=== PATIENT | female | born 1935 ===

== ENCOUNTER 2017-05-01 10:27 | Observation (INO) | payer MEDICARE, OTHER ==
[2017-05-01 10:33] VITALS: BMI 27.4
[2017-05-01] MEDS ORDERED: Sodium Chloride 0.9% 1,000 ML IV STA (10:51)
--- NOTE | 2017-05-01 10:55 | ED PDOC ---
HPI: Chest Pain Time Seen by Provider: 05/01/17 10:34 Chief Complaint (Nursing): Chest Pain Chief Complaint (Provider): Chest Pain History Per: Patient History/Exam Limitations: no limitations Quality: "Pain" Associated Symptoms: Nausea Additional Complaint(s): Vilma Anaya, an 82 year old female, presens to the ED with chest pain/ epigastric pain x1 day. The patient states that the pain radiates down her right arm and is associated with nausea, shortness of breath and vomiting. She reports that she was diagnosed with a cold last week and was started on a course of cipro which she has completed but still does not feel better. Patient also notes a cough productive of yellow sputum. Denies fever, diarrhea. Past Medical History Reviewed: Historical Data, Nursing Documentation, Vital Signs Vital Signs: Last Vital Signs Temp 97.5 F L 05/02/17 15:48 Pulse 79 05/02/17 15:48 Resp 20 05/02/17 15:48 BP 165/68 H 05/02/17 15:48 Pulse Ox 98 05/02/17 15:48 - Medical History PMH: Arthritis, Asthma, Atrial Fibrillation, Bronchitis, Cardia Arrhythmia, Fractures (right hip/right shoulder), Gastritis, GERD, HTN (Syncope, Pacemaker, Thyroid dz), Hypercholesterolemia, Hypothyroidism Denies: Alzheimer's Disease, CHF, Dementia, Pneumonia, Pulmonary Embolism, Chronic Kidney Disease, Sleep Apnea, TIA - Surgical History Surgical History: Appendectomy, Cholecystectomy, Pacemaker, Tonsillectomy - Family History Family History: States: Unknown Family Hx - Home Medications Home Medications: Ambulatory Orders Medication Instructions Recorded Fluticasone/Salmeterol 250/50 1 puff INH Q12H 11/08/15 [Advair Diskus 250/50] amLODIPine [Norvasc] 10 mg PO DAILY 02/17/16 Esomeprazole Magnesium [Nexium] 40 mg PO DAILY 07/25/16 Levothyroxine Sodium 137 mcg PO DAILY 07/25/16 Metoclopramide [Reglan] 10 mg PO ACTID 05/01/17 Benzonatate [Tessalon Perles] 100 mg PO Q8 PRN #20 sgl 05/02/17 - Allergies Allergies/Adverse Reactions: Allergies Allergy/AdvReac Type Severity Reaction Status Date / Time albuterol Allergy RASH Verified 10/06/15 12:18 aspirin Allergy RASH Verified 10/06/15 12:18 iodine Allergy RASH Verified 10/06/15 12:18 Penicillins Allergy RASH Verified 10/06/15 12:18 ammonia AdvReac VOMITING Verified 11/02/15 13:38 Review of Systems ROS Statement: Except As Marked, All Systems Reviewed And Found Negative Constitutional: Negative for: Fever Cardiovascular: Positive for: Chest Pain ((point set epigastrium)) Respiratory: Positive for: Cough (productive of yellow sputum), Shortness of Breath Gastrointestinal: Positive for: Nausea, Vomiting. Negative for: Diarrhea Physical Exam - Reviewed Nursing Documentation Reviewed: Yes Vital Signs Reviewed: Yes - Physical Exam Appears: Positive for: Non-toxic (Pt speaking in full sentences.), No Acute Distress Skin: Positive for: Normal Color, Warm, Dry. Negative for: Rash Eye Exam: Positive for: Normal appearance, EOMI, PERRL ENT: Positive for: Normal ENT Inspection. Negative for: Tonsillar Exudate, Tonsillar Swelling Neck: Positive for: Normal, Painless ROM, Supple Cardiovascular/Chest: Positive for: Regular Rate, Rhythm, Chest Non Tender. Negative for: Tachycardia Respiratory: Positive for: Normal Breath Sounds. Negative for: Rales, Rhonchi, Wheezing, Respiratory Distress Gastrointestinal/Abdominal: Positive for: Tenderness (Tenderness to epigastrium and right upper quadrant.). Negative for: Bowel Sounds, Soft, Mass, Guarding, Rebound Back: Positive for: Normal Inspection. Negative for: L CVA Tenderness, R CVA Tenderness Extremity: Positive for: Normal ROM. Negative for: Tenderness, Deformity, Swelling Neurologic/Psych: Positive for: Alert, Oriented, Gait - Laboratory Results Result Diagrams: 05/01/17 11:00 05/02/17 06:20 - ECG O2 Sat by Pulse Oximetry: 98 (RA) Pulse Ox Interpretation: Normal Medical Decision Making Medical Decision Makin Initial impression: 82 year old female presenting with Chest/Epigastric pain and cough Initial Plan: * EKG * CMP * Lipase * Troponin * Udip * CBC * D-Dimer * PTT * Prothrombin time * CXR * NS 1000mls IV 125mls/hr * Zofran 4mg IV * Blood Culture * Urinalysis * Reevaluation Scribe Attestation Documented by Diana Monroy acting as a scribe for Consuelo Pena MD. Provider Attestation All medical record entries made by the Scribe were at my direction and personally dictated by me. I have reviewed the chart and agree that the record accurately reflects my personal performance of the history, physical exam, medical decision making, and the department course for this patient. I have also personally directed, reviewed, and agree with the discharge instructions and disposition. Disposition - Clinical Impression Clinical Impression: Chest pain, Epigastric pain - Disposition Disposition Time: 15:10 Condition: STABLE - Pt Status Changed To: Hospital Disposition Of: Inpatient - Admit Certification Admit to Inpatient:: After my assessment, the patient will require hospitalization for at least two midnights. This is because of the severity of symptoms shown, intensity of services needed, and/or the medical risk in this patient being treated as an outpatient. - POA Present On Arrival: None
--- NOTE | 2017-05-01 11:17 | RAD ---
HISTORY: Chest pain COMPARISON: 07/25/2016. FINDINGS: LUNGS: There is mild pulmonary venous congestion. No focal consolidation. PLEURA: No significant pleural effusion identified, no pneumothorax apparent. CARDIOVASCULAR: The heart is normal in size. Atherosclerotic aortic arch calcifications are present. There is stable position of a left-sided dual lead transvenous permanent pacing device. OSSEOUS STRUCTURES: No significant abnormalities. VISUALIZED UPPER ABDOMEN: Normal. OTHER FINDINGS: Surgical clips in the right upper quadrant are related to prior cholecystectomy. IMPRESSION: No active pulmonary disease. Mild pulmonary venous congestion.
[2017-05-01 11:21] LABS: BASO # 0.1 K/uL (0.0-0.2); BASO % 0.6 % (0.0-2.0); EOS # 0.2 K/uL (0.0-0.7); EOS % 1.8 % (0.0-4.0); LYMPH # 2.4 K/uL (1.0-4.3); LYMPH % 24.6 % (20.0-40.0); MEAN CORPUSCULAR HEMOGLOBIN 30.3 pg (27.0-31.0); MEAN CORPUSCULAR HGB CONC 33.7 g/dL (33.0-37.0); MONO # 0.7 K/uL (0.0-0.8); MONO % 7.1 % (0.0-10.0); NEUT # 6.4 K/uL (1.8-7.0); NEUT % 65.9 % (50.0-75.0); NRBC % 0.1 % (0.0-0.0); RED CELL DISTRIBUTION WIDTH 13.6 % (11.5-14.5); WHITE BLOOD COUNT 9.8 K/uL (4.8-10.8)
[2017-05-01 11:38] LABS: ALB/GLOB RATIO 1.2 (1.0-2.1); ALKALINE PHOSPHATASE 79 U/L (38-126); ALT/SGPT 29 U/L (9-52); AST/SGOT 25 U/L (14-36); BILIRUBIN,TOTAL 0.8 mg/dl (0.2-1.3); BLOOD UREA NITROGEN 28 mg/dl (7-17); CARBON DIOXIDE 25 mmol/L (22-30); CHLORIDE 105 mmol/L (98-107); GFR AFRICAN-AMERICAN > 60; GLUCOSE,RANDOM 122 mg/dL (65-105); LIPASE 181 U/L (23-300); POTASSIUM 3.6 MMOL/L (3.6-5.0); SODIUM 143 mmol/l (132-148); TOTAL PROTEIN 7.2 G/DL (6.3-8.2)
[2017-05-01 11:38] LABS: VENOUS BLOOD GAS BASE EXCESS 3.3 mmol/L (0.0-2.0); VENOUS BLOOD GAS PCO2 41 mmHg (40-60); VENOUS BLOOD PH 7.44 (7.32-7.43)
[2017-05-01 11:46] LABS: PARTIAL THROMBOPLASTIN TIME 24.1 Seconds (25.6-37.1)
[2017-05-01 11:48] LABS: RBC URINE 5 /hpf (0-3); URINE BACTERIA RARE (<OCC); URINE BILIRUBIN NEGATIVE (NEGATIVE); URINE BLOOD SMALL (NEGATIVE); URINE COLOR AMBER (YELLOW); URINE GLUCOSE (UA) NEG (Normal); URINE KETONE NEGATIVE (NEGATIVE); URINE LEUKOCYTE ESTERASE SMALL Leu/uL (Negative); URINE PROTEIN 30 mg/dL (NEGATIVE); URINE UROBILINOGEN 0.2-1.0 mg/dL (0.2-1.0); WBC URINE 5 /hpf (0-5)
[2017-05-01] MEDS ORDERED: Iodixanol 320 MG/ML 100 ML BOTTLE IV ONE (12:42)
--- NOTE | 2017-05-01 14:15 | NM ---
COMPARISON: Not available TECHNIQUE: 47.20 mCi technetium 99-m DTPA aerosol. 6.25 mCI technetium 99-m MAA administered intravenously. FINDINGS: VENTILATION COMPONENT: Limited examination due to central tracheobronchial deposition bilaterally. No large ventilation defects. PERFUSION COMPONENT: Multiple small bilateral matched perfusion defects. No mismatched perfusion defects are identified. IMPRESSION: Low probability for pulmonary embolism.
--- NOTE | 2017-05-01 16:08 | US ---
HISTORY: Epigastric/RUQ pain COMPARISON: None. TECHNIQUE: Grayscale imaging was performed. FINDINGS: LIVER: Measures 13.3 cm. Normal echogenicity of the liver parenchyma. No mass. No intrahepatic bile duct dilatation. GALLBLADDER: Surgically absent. COMMON BILE DUCT: Measures 5.0 mm. No stones. No dilatation. PANCREAS: Unremarkable as visualized. No ductal dilatation. RIGHT KIDNEY: Measures 10.6cm. Normal echogenicity. No calculus, mass, or hydronephrosis. LEFT KIDNEY: Measures 10.9cm. Normal echogenicity. No calculus, mass, or hydronephrosis. There is a 6.1 x 4.7 x 5.6 cm simple parapelvic cyst. SPLEEN: Normal in size and contour. No mass. AORTA: No aneurysmal dilatation. IVC: Unremarkable. OTHER FINDINGS: None. IMPRESSION: 1. Status post cholecystectomy, no biliary dilatation. 2. 6.1 cm left parapelvic simple cyst.
--- NOTE | 2017-05-01 16:29 | RAD ---
HISTORY: Epigastric COMPARISON: No prior. FINDINGS: BOWEL: Mild retained feces. No bowel obstruction. No hepatic or splenic enlargement. No masses or abnormal intra-abdominal calcifications. Surgical clips in right upper quadrant likely status post cholecystectomy. BONES: Lumbar dextroscoliosis. OTHER FINDINGS: None. IMPRESSION: Unremarkable bowel gas pattern.
[2017-05-01] MEDS ORDERED: Alum-Mag Hydrox-Simethicone Susp (30 mL) PO PRN (20:41)
[2017-05-01] MEDS: Fluticasone-Salmeterol 250-50mcg Diskus INH SCH (21:32)
--- NOTE | 2017-05-02 00:06 | CP.PCM.HP ---
History of Present Illness - History of Present Illness History of Present Illness: An 82 yr old female with hx of HTN, GERD, Hypothyroidism on meds came with hx of feeling sick with nausea and vomiting in early am today, went to bed , when she woke up, she had a loose big stool - few times with almost passing out feeling and right chest discomfort and felt like radiating to right side. she does see cardiology as out patient. denies fever, sick contacts, recent travel. denies SOB . CURRENTLY FEELs better so far work up was negative. Present on Admission - Present on Admission Any Indicators Present on Admission: No Review of Systems - Constitutional Constitutional: Fatigue. absent: Chills, Fever, Frequent Falls, Headache - EENT Eyes: absent: Other Visual Disturbances Nose/Mouth/Throat: absent: Nasal Congestion, Hoarsness, Sore Throat - Cardiovascular Cardiovascular: absent: Chest Pain, Leg Edema, Paroxysmal Nocturnal Dyspnea, Rapid Heart Rate - Respiratory Respiratory: absent: Cough, Wheezing, Chest Congestion, Excessive Mucous Production - Gastrointestinal Gastrointestinal: absent: Belching, Bloating, Constipation, Excessive Flatus, Hematemesis, Odynophagia - Genitourinary Genitourinary: absent: Flank Pain, Urinary Frequency - Musculoskeletal Musculoskeletal: Back Pain. absent: Limited Range of Motion, Numbness - Integumentary Integumentary: absent: Sores - Psychiatric Psychiatric: absent: Anxiety, Confusion, Hopelessness - Hematologic/Lymphatic Hematologic: absent: Easy Bleeding, Lymphadenopathy Past Patient History - Infectious Disease Hx of Infectious Diseases: None - Tetanus Immunizations Tetanus Immunization: Unknown - Past Medical History & Family History Past Medical History?: Yes - Past Social History Smoking Status: Never Smoked - CARDIAC Hx Cardiac Disorders: Yes - PULMONARY Hx Respiratory Disorders: Yes - NEUROLOGICAL Hx Alzheimer's Disease: No Hx Dementia: No Hx Transient Ischemic Attacks (TIA): No - HEENT Hx HEENT Problems: Yes Other/Comment: implants both eyes - RENAL Hx Chronic Kidney Disease: No - ENDOCRINE/METABOLIC Hx Hypothyroidism: Yes - HEMATOLOGICAL/ONCOLOGICAL Hx Blood Disorders: No - INTEGUMENTARY Hx Dermatological Problems: No - MUSCULOSKELETAL/RHEUMATOLOGICAL Hx Falls: Yes - GASTROINTESTINAL Hx Gastritis: Yes - GENITOURINARY/GYNECOLOGICAL Hx Genitourinary Disorders: No - PSYCHIATRIC Hx Substance Use: No - SURGICAL HISTORY Hx Appendectomy: Yes Hx Cholecystectomy: Yes Hx Tonsillectomy: Yes - ANESTHESIA Hx Anesthesia: Yes Hx Anesthesia Reactions: No Hx Malignant Hyperthermia: No Meds Home Medications: Home Medication List Medication Instructions Recorded Confirmed Type Benzonatate [Tessalon Perles] 100 mg PO Q8 PRN #20 sgl 05/02/17 Rx Allergies/Adverse Reactions: Allergies Allergy/AdvReac Type Severity Reaction Status Date / Time albuterol Allergy RASH Verified 10/06/15 12:18 aspirin Allergy RASH Verified 10/06/15 12:18 iodine Allergy RASH Verified 10/06/15 12:18 Penicillins Allergy RASH Verified 10/06/15 12:18 ammonia AdvReac VOMITING Verified 11/02/15 13:38 Physical Exam - Constitutional Appears: No Acute Distress - Head Exam Head Exam: ATRAUMATIC, NORMAL INSPECTION, NORMOCEPHALIC - Eye Exam Eye Exam: EOMI, Normal appearance - ENT Exam ENT Exam: Mucous Membranes Moist, Normal Exam - Neck Exam Neck exam: Positive for: Normal Inspection - Respiratory Exam Respiratory Exam: NORMAL BREATHING PATTERN. absent: Clear to Auscultation Bilateral - Cardiovascular Exam Cardiovascular Exam: REGULAR RHYTHM, +S1, +S2, Systolic Murmur - GI/Abdominal Exam GI & Abdominal Exam: Normal Bowel Sounds, Soft. absent: Tenderness - Extremities Exam Extremities exam: Negative for: normal inspection, pedal pulses present - Back Exam Back exam: NORMAL INSPECTION. absent: CVA tenderness (L), CVA tenderness (R) - Neurological Exam Neurological exam: Alert, CN II-XII Intact, Normal Gait, Oriented x3 - Psychiatric Exam Psychiatric exam: Normal Mood - Skin Skin Exam: Intact, Normal Color Results - Vital Signs Recent Vital Signs: Last Vital Signs Temp 98.2 F 05/01/17 23:42 Pulse 75 05/01/17 23:42 Resp 18 05/01/17 23:42 BP 109/67 05/01/17 23:42 Pulse Ox 95 05/01/17 23:42 - Labs Result Diagrams: 05/01/17 11:00 05/02/17 06:20 Labs: Laboratory Results - last 24 hr 05/01/17 20:56 Troponin I < 0.0120 - EKG Data EKG Interpreted by: Other EKG shows normal: Sinus rhythm Rate: Normal - EKG Data When Compared to Previous EKG: No Significant Change - Imaging and Cardiology US - abdomen Status: Report reviewed by me Chest x-ray Status: Report reviewed by me Abdominal x-ray Status: Report reviewed by me Assessment & Plan (1) Near syncope Status: Acute Comment: roseanna vasovagal. orthostatics. ivf (2) Chest pain Status: Acute Priority: High Comment: trops\ekg- q 8hr-3. ASA. UNLIKEY CARDIAC (3) Hypertension Status: Chronic (4) Other specified hypothyroidism Status: Chronic Comment: continue meds (5) Gastro-esophageal reflux disease without esophagitis Status: Chronic Comment: reglan. iv PPI Decision To Admit - Pt Status Changed To: Hospital Disposition Of: Observation - . Bed Request Type: Telemetry Admitting Physician: David Robles
[2017-05-02 06:56] LABS: ALB/GLOB RATIO 1.1 (1.0-2.1); ALKALINE PHOSPHATASE 88 U/L (38-126); ALT/SGPT 21 U/L (9-52); AST/SGOT 31 U/L (14-36); BILIRUBIN,TOTAL 1.3 mg/dl (0.2-1.3); BLOOD UREA NITROGEN 17 mg/dl (7-17); CARBON DIOXIDE 26 mmol/L (22-30); CHLORIDE 107 mmol/L (98-107); GFR AFRICAN-AMERICAN > 60; GLUCOSE,RANDOM 84 mg/dL (65-105); SODIUM 143 mmol/l (132-148); TOTAL PROTEIN 7.4 G/DL (6.3-8.2)
[2017-05-02 07:23] LABS: THYROID STIMULATING HORMONE 0.65 mIU/ML (0.46-4.68)
[2017-05-02] MEDS: Fluticasone-Salmeterol 250-50mcg Diskus INH SCH (08:28)
[2017-05-02] MEDS ORDERED: Enoxaparin 40 mg Syringe SC SCH (09:00)
--- NOTE | 2017-05-02 10:39 | CARD ---
APPROVED REPORT EKG Measurement Heart [id number] <Conclusion> Normal sinus rhythm Normal ECG
--- NOTE | 2017-05-02 10:51 | CARD ---
APPROVED REPORT EKG Measurement Heart [id number] <Conclusion> Sinus rhythm with one premature ventricular complex Otherwise normal ECG
[2017-05-02] MEDS ORDERED: Pantoprazole 40 mg EC Tab PO SCH (11:45)
--- NOTE | 2017-05-02 15:18 | CT ---
PROCEDURE: CT scan chest dated 05/02/2017. HISTORY: cough, sob COMPARISON: Correlation made with V/Q scan and chest radiograph both dated 05/01/2017. Open all TECHNIQUE: Contiguous axial images were obtained through the chest without intravenous contrast enhancement. Sagittal and coronal reconstructions were performed. Radiation dose (DLP): 354.07 mGy-cm. This CT exam was performed using one or more of the following dose reduction techniques: Automated exposure control, adjustment of the mA and/or kV according to patient size, and/or use of iterative reconstruction technique. FINDINGS: LUNGS: Mild biapical pleural thickening with some with some minor linear adjacent parenchymal scarring. There is a large bleb and or small bulla left medial lung base. Mild atelectasis both posterior lower lung zones. Scattered small nodular densities seen throughout both lower lobes. Follow-up CT scan and 6 months could be performed to assess stability. MEDIASTINUM: Heart is enlarged. No significant pericardial effusion. Ascending thoracic aorta mildly dilated measuring approximately 3.8 cm. Descending thoracic aorta measures approximately 3.04 cm. Calcified plaque seen along thoracic aorta Pulmonary trunk measures approximately 2.5 cm Few small nonspecific mediastinal lymph nodes. Evaluation for hilar adenopathy limited due to the lack of circulating intravenous contrast material. Central airways are midline and patent. No obvious endobronchial lesions. Medium-sized hiatal hernia with wall thickening of the distal esophagus that could be due to protrusion gastric mucosa. Possibility of esophagitis or other intrinsic/ invasive wall lesion (such as esophageal carcinoma) not excluded. Clinical correlation therefore recommended. PLEURA: No pleural fluid. No pneumothorax. BONES: Minor chronic anterior wedge deformities of the T6 and T7 and to a lesser degree T8 segments. Thoracic segments with mild superior endplate deformities of the T10 and L1 segments. UPPER ABDOMEN: Grossly unremarkable spleen appears upper limits of normal/borderline enlarged measuring nearly 13 cm in AP dimension. Status post cholecystectomy with metallic clips in the gallbladder fossa and do result in surrounding streak and beam hardening artifact. OTHER FINDINGS: None. IMPRESSION: Mild biapical pleural thickening with some with some minor linear adjacent parenchymal scarring. There is a large bleb and or small bulla left medial lung base. Mild atelectasis both posterior lower lung zones. Scattered small nodular densities seen throughout both lower lobes. Follow-up CT scan and 6 months could be performed to assess stability. Moderate size hiatal hernia with some wall thickening of the distal esophagus that could be due to protrusion gastric mucosa. Possibility of esophagitis or other intrinsic/invasive wall lesion not excluded. Mild dilatation of the ascending thoracic aorta. See above discussion for additional findings and details.
--- NOTE | 2017-05-02 15:46 | CP.PCM.PCO ---
Assessment/Plan - Assessment/Plan Assessment (Free Text): Pt stable in no distress. Denies cp/sob/f/c/n/v. Pt staes she feels good and wants to go home. Labs and reports and CT scan reports reviewed with Dr. Robles. Pt cleared by Dr. Robles to go home and to f/u with her GI doctor as outpatient. Pt to f/u with Dr. Robles as well in [address] chest report faxed to Dr. Robles' s office. Pt to resume all home meds. Rx given for Tessalon perles for cough.
[2017-05-02 15:49] VITALS: BP 165/68; PULSE 79; RESP 20; TEMP 97.5; O2SAT 98
--- NOTE | 2017-05-04 09:57 | CARD ---
APPROVED REPORT EKG Measurement Heart [id number] <Conclusion> Normal sinus rhythm Normal ECG
--- NOTE | 2017-05-10 13:46 | CP.PCM.DIS ---
Provider - Provider Date of Admission: 05/01/17 15:10 Attending physician: David Robles MD Primary care physician: David Robles MD Time Spent in preparation of Discharge (in minutes): 30 Diagnosis - Discharge Diagnosis (1) Near syncope Status: Resolved (2) Chest pain Status: Acute Priority: High (3) Hypertension Status: Chronic (4) Other specified hypothyroidism Status: Chronic (5) Gastro-esophageal reflux disease without esophagitis Status: Chronic Hospital Course - Lab Results Lab Results: Most Recent Lab Values WBC 9.8 K/uL (4.8-10.8) 05/01/17 11:00 RBC 4.66 Mil/uL (3.80-5.20) 05/01/17 11:00 Hgb 14.1 g/dL (12.0-16.0) 05/01/17 11:00 Hct 42.0 % (34.0-47.0) 05/01/17 11:00 MCV 90.0 fl (81.0-99.0) 05/01/17 11:00 MCH 30.3 pg (27.0-31.0) 05/01/17 11:00 MCHC 33.7 g/dL (33.0-37.0) 05/01/17 11:00 RDW 13.6 % (11.5-14.5) 05/01/17 11:00 Plt Count 159 K/uL (130-400) 05/01/17 11:00 MPV 11.0 fl (7.2-11.7) 05/01/17 11:00 Neut % (Auto) 65.9 % (50.0-75.0) 05/01/17 11:00 Lymph % (Auto) 24.6 % (20.0-40.0) 05/01/17 11:00 Sumner % (Auto) 7.1 % (0.0-10.0) 05/01/17 11:00 Eos % (Auto) 1.8 % (0.0-4.0) 05/01/17 11:00 Baso % (Auto) 0.6 % (0.0-2.0) 05/01/17 11:00 Neut # 6.4 K/uL (1.8-7.0) 05/01/17 11:00 Lymph # 2.4 K/uL (1.0-4.3) 05/01/17 11:00 Sumner # 0.7 K/uL (0.0-0.8) 05/01/17 11:00 Eos # 0.2 K/uL (0.0-0.7) 05/01/17 11:00 Baso # 0.1 K/uL (0.0-0.2) 05/01/17 11:00 PT 11.8 Seconds (9.8-13.1) 05/01/17 11:00 INR 1.1 (0.9-1.2) 05/01/17 11:00 APTT 24.1 Seconds (25.6-37.1) L 05/01/17 11:00 D-Dimer, Quantitative 666 ng/mlDDU (0-230) H 05/01/17 11:00 pO2 45 mm/Hg (30-55) 05/01/17 11:38 VBG pH 7.44 (7.32-7.43) H 05/01/17 11:38 VBG pCO2 41 mmHg (40-60) 05/01/17 11:38 VBG HCO3 27.0 mmol/L 05/01/17 11:38 VBG Total CO2 29.1 mmol/L (22-28) H 05/01/17 11:38 VBG O2 Sat (Calc) 85.2 % (40-65) H 05/01/17 11:38 VBG Base Excess 3.3 mmol/L (0.0-2.0) H 05/01/17 11:38 VBG Potassium 3.3 mmol/L (3.6-5.2) L 05/01/17 11:38 Sodium 138.0 mmol/L (132-148) 05/01/17 11:38 Chloride 108.0 mmol/L (98-107) H 05/01/17 11:38 Glucose 124 mg/dL (65-105) H 05/01/17 11:38 Lactate 1.3 mmol/L (0.7-2.1) 05/01/17 11:38 FiO2 21.0 % 05/01/17 11:38 Sodium 143 mmol/l (132-148) 05/02/17 06:20 Potassium 4.0 MMOL/L (3.6-5.0) 05/02/17 06:20 Chloride 107 mmol/L (98-107) 05/02/17 06:20 Carbon Dioxide 26 mmol/L (22-30) 05/02/17 06:20 Anion Gap 14 (10-20) 05/02/17 06:20 BUN 17 mg/dl (7-17) 05/02/17 06:20 Creatinine 0.8 mg/dL (0.7-1.2) 05/02/17 06:20 Est GFR ( Amer) > 60 05/02/17 06:20 Est GFR (Non-Af Amer) > 60 05/02/17 06:20 Random Glucose 84 mg/dL (65-105) 05/02/17 06:20 Calcium 9.0 mg/dL (8.4-10.2) 05/02/17 06:20 Total Bilirubin 1.3 mg/dl (0.2-1.3) 05/02/17 06:20 AST 31 U/L (14-36) 05/02/17 06:20 ALT 21 U/L (9-52) 05/02/17 06:20 Alkaline Phosphatase 88 U/L (38-126) 05/02/17 06:20 Troponin I < 0.0120 ng/mL (0.00-0.120) 05/02/17 06:20 Total Protein 7.4 G/DL (6.3-8.2) 05/02/17 06:20 Albumin 3.9 g/dL (3.5-5.0) 05/02/17 06:20 Globulin 3.5 gm/dL (2.2-3.9) 05/02/17 06:20 Albumin/Globulin Ratio 1.1 (1.0-2.1) 05/02/17 06:20 Lipase 181 U/L (23-300) 05/01/17 11:00 TSH 3rd Generation 0.65 mIU/ML (0.46-4.68) 05/02/17 06:20 Venous Blood Potassium 3.3 mmol/L (3.6-5.2) L 05/01/17 11:38 Urine Color Nicolasa (YELLOW) 05/01/17 11:33 Urine Clarity Slighty-cloudy (Clear) 05/01/17 11:33 Urine pH 6.0 (5.0-8.0) 05/01/17 11:33 Ur Specific [place] 1.021 (1.003-1.030) 05/01/17 11:33 Urine Protein 30 mg/dL (NEGATIVE) 05/01/17 11:33 Urine Glucose (UA) Neg mg/dL (Normal) 05/01/17 11:33 Urine Ketones Negative mg/dL (NEGATIVE) 05/01/17 11:33 Urine Blood Small (NEGATIVE) 05/01/17 11:33 Urine Nitrate Negative (NEGATIVE) 05/01/17 11:33 Urine Bilirubin Negative (NEGATIVE) 05/01/17 11:33 Urine Urobilinogen 0.2-1.0 mg/dL (0.2-1.0) 05/01/17 11:33 Ur Leukocyte Esterase Small Reshma/uL (Negative) 05/01/17 11:33 Urine RBC (Auto) 5 /hpf (0-3) H 05/01/17 11:33 Urine Microscopic WBC 5 /hpf (0-5) 05/01/17 11:33 Ur Squamous Epith Cells 4 /hpf (0-5) 05/01/17 11:33 Urine Bacteria Rare (<OCC) 05/01/17 11:33 Hyaline Casts 0-2 /hpf (0-2) 05/01/17 11:33 - Hospital Course Hospital Course: reviwed CT chest result- [atient aware of hiataal hernis, she f]u GI. hx of recent EGD advise to f\u GI diet and hydration discussed. Discharge Exam - Head Exam Head Exam: ATRAUMATIC, NORMAL INSPECTION, NORMOCEPHALIC - Additional Findings Additional findings: Additional Findings Additional findings: Head Exam Head Exam: ATRAUMATIC, NORMAL INSPECTION, NORMOCEPHALIC - Eye Exam Eye Exam: EOMI, PERRL - ENT Exam ENT Exam: Mucous Membranes normal - Respiratory Exam Respiratory Exam: Clear to Auscultation , NORMAL BREATHING PATTERN. absent: Accessory Muscle Use - Cardiovascular Exam Cardiovascular Exam: no Tachycardia, REGULAR RHYTHM, +S1, +S2, Systolic Murmur. absent: Gallop - GI/Abdominal Exam GI & Abdominal Exam: Normal Bowel Sounds, Soft. absent: Distended, Hernia, Mass , Tenderness - Neurological Exam Neurological exam: Alert, Altered, CN II-XII Intact Additional comments: AAO-3 , no focal deficits - Psychiatric Exam Psychiatric exam: Normal Affect, Normal Mood - Skin Skin Exam: Intact, post sx changes on left side nose - Discharge Plan - Discharge Medications Prescriptions: Benzonatate [Tessalon Perles] 100 mg PO Q8 PRN #20 sgl PRN Reason: Cough - Follow Up Plan Condition: FAIR Disposition: HOME/ ROUTINE Instructions: Chest Pain (DC) Referrals: David Robles MD [Primary Care Provider] -
== END 2017-05-02 16:10 | disposition home or self-care (01) ==
LOC: H.ER 10:27 → H.ERHOLD 15:10 → H.TEL 17:29
PROVIDERS: ADMIT Internal Medicine; ATTEND Internal Medicine
DX: K21.9 Gastro-esophageal reflux disease without esophagitis (principal); E03.9 Hypothyroidism, unspecified; E78.00 Pure hypercholesterolemia, unspecified; I10 Essential (primary) hypertension; I48.91 Unspecified atrial fibrillation; J45.909 Unspecified asthma, uncomplicated; J40 Bronchitis, not specified as acute or chronic; M19.90 Unspecified osteoarthritis, unspecified site; R55 Syncope and collapse; K29.70 Gastritis, unspecified, without bleeding; R07.9 Chest pain, unspecified; R11.2 Nausea with vomiting, unspecified
CPT/HCPCS: 36415; 71010; 71250; 74000; 76700; 78582; 80053; 81003; 82803; 83690; 84443; 84484; 85025; 85378; 85610; 85730; 87040; 93005; 99285; A9567; C9113; G0378; J1650; J2405; J7040

== ENCOUNTER 2017-09-16 06:25 | Inpatient (IN) | payer MEDICARE, OTHER ==
[2017-09-16 06:25] VITALS: BMI 27.4
[2017-09-16] MEDS ORDERED: Ipratropium 0.02% Inhal Soln (0.5 mg/2.5 ml) UD IH STA (07:26)
[2017-09-16] MEDS ORDERED: Sodium Chloride 0.9% 500 ML IV STA (07:27)
--- NOTE | 2017-09-16 07:35 | ED PDOC ---
HPI: SOB/CHF/COPD Time Seen by Provider: 09/16/17 07:06 Chief Complaint (Nursing): Shortness Of Breath Chief Complaint (Provider): Shortness of Breath History Per: Patient History/Exam Limitations: no limitations Onset/Duration Of Symptoms: Mins Current Symptoms Are (Timing): Still Present Additional Complaint(s): 82 y/o female, brought in by EMS, with a history of asthma, hypertension, and hyperlipidemia, presents to the ED complaining of shortness of breath, chest pain, and congestion, onset of 7 days ago. Patient reports of being diagnosed with the flu a week ago by her primary care doctor, Dr Robles, but her symptoms worsened since last night. She reports of having a cough productive of sputum and feeling of general weakness, but denies any leg pain, neck pain, body aches, dizziness, numbness or tingling. Of note, patient has a pacemaker. PCP: David Robles (not Berenice, per pt.) Past Medical History Reviewed: Historical Data, Nursing Documentation, Vital Signs Vital Signs: Last Vital Signs Temp 98.3 F 09/16/17 06:41 Pulse 81 09/16/17 06:41 Resp 15 09/16/17 06:58 BP 132/52 L 09/16/17 06:41 Pulse Ox 98 09/16/17 07:46 - Medical History PMH: Arthritis, Asthma, Atrial Fibrillation, Bronchitis, Cardia Arrhythmia, Fractures (right hip/right shoulder), Gastritis, GERD, HTN (Syncope, Pacemaker, Thyroid dz), Hypercholesterolemia, Hypothyroidism Denies: Alzheimer's Disease, CHF, Dementia, Pneumonia, Pulmonary Embolism, Chronic Kidney Disease, Sleep Apnea, TIA - Surgical History Surgical History: Appendectomy, Cholecystectomy, Pacemaker, Tonsillectomy - Family History Family History: States: Unknown Family Hx - Social History Current smoker - smoking cessation education provided: No Ex-Smoker (has not smoked in the last 12 months): No Alcohol: None Drugs: Denies - Home Medications Home Medications: Ambulatory Orders Medication Instructions Recorded Fluticasone/Salmeterol 250/50 1 puff INH Q12H 11/08/15 [Advair Diskus 250/50] amLODIPine [Norvasc] 10 mg PO DAILY 02/17/16 Esomeprazole Magnesium [Nexium] 40 mg PO DAILY 07/25/16 Levothyroxine Sodium 137 mcg PO DAILY 07/25/16 Metoclopramide [Reglan] 10 mg PO ACTID 05/01/17 Benzonatate [Tessalon Perles] 100 mg PO Q8 PRN #20 sgl 05/02/17 - Allergies Allergies/Adverse Reactions: Allergies Allergy/AdvReac Type Severity Reaction Status Date / Time albuterol Allergy RASH Verified 10/06/15 12:18 aspirin Allergy RASH Verified 10/06/15 12:18 iodine Allergy RASH Verified 10/06/15 12:18 Penicillins Allergy RASH Verified 10/06/15 12:18 ammonia AdvReac VOMITING Verified 11/02/15 13:38 Review of Systems ROS Statement: Except As Marked, All Systems Reviewed And Found Negative Constitutional: Positive for: Weakness ENT: Positive for: Nose Congestion Cardiovascular: Positive for: Chest Pain Respiratory: Positive for: Cough, Shortness of Breath, Sputum Gastrointestinal: Negative for: Abdominal Pain Musculoskeletal: Negative for: Neck Pain, Leg Pain Neurological: Negative for: Numbness, Headache, Dizziness Physical Exam - Reviewed Nursing Documentation Reviewed: Yes Vital Signs Reviewed: Yes - Physical Exam Appears: Positive for: Non-toxic, No Acute Distress Head Exam: Positive for: ATRAUMATIC Skin: Positive for: Normal Color, Warm Eye Exam: Positive for: Normal appearance, EOMI, PERRL ENT: Positive for: Normal ENT Inspection, Nasal Congestion Neck: Positive for: Normal, Painless ROM, Supple Cardiovascular/Chest: Positive for: Regular Rate, Rhythm. Negative for: Murmur Respiratory: Positive for: Decreased Breath Sounds Gastrointestinal/Abdominal: Positive for: Normal Exam, Soft. Negative for: Tenderness Back: Positive for: Normal Inspection. Negative for: L CVA Tenderness, R CVA Tenderness Extremity: Positive for: Normal ROM. Negative for: Pedal Edema, Deformity Neurologic/Psych: Positive for: Alert, Oriented. Negative for: Motor/Sensory Deficits - Laboratory Results Result Diagrams: 09/16/17 07:45 09/16/17 07:45 Interpretation Of Abn Labs: 3.1 k, flu pos - ECG ECG: Positive for: Interpreted By Me, Viewed By Me ECG Rhythm: Positive for: Normal QRS, Normal ST Segment, Sinus Rhythm O2 Sat by Pulse Oximetry: 98 (RA) Pulse Ox Interpretation: Normal - Radiology X-Ray: Interpreted by Me, Viewed By Me X-Ray Interpretation: No Acute Disease - Progress ED Course And Treament: 1037: Stable. AAOx3. Spoke with Dr. Robles, pt. pcp. States she called in an rx for pt. as she had symptoms and was not able to see her. Will admit for flu and asthma. Will give further orders when pt. reaches floor. Medical Decision Making Medical Decision Making: Time: --07:26 Impression: --Dyspnea Plan: --Arterial Blood Gas --Labs --Troponin I Stat --Partial Thrombopastin Time --Prothrombin Time --Chest Xray --Ipratopium 0.5mg IH --methylprednisolone 125mg IVP --IV Fluids --Blood Culture --Nebulizer Treatment --Peak Flow Pre/ Post TX --Influenza A B --B-Type Natriuretic Reassess -- Scribe Attestation: Documented by Ankush Goddard acting as a scribe for Kapil Smith MD. Disposition - Clinical Impression Clinical Impression: Asthma, Flu, Hypokalemia - Patient ED Disposition Is Patient to be Admitted: Yes Counseled Patient/Family Regarding: Studies Performed, Diagnosis - Disposition Disposition Time: 10:00 Condition: FAIR - Pt Status Changed To: Hospital Disposition Of: Observation - POA Present On Arrival: None
[2017-09-16] MEDS ORDERED: Ipratropium 0.02% Inhal Soln (0.5 mg/2.5 ml) UD IH ONE (07:50)
[2017-09-16 08:00] LABS: ABG ALLEN TEST YES; ARTERIAL BLOOD GAS HCO3 28.1 mmol/L (21-28); ARTERIAL BLOOD GAS O2 SAT 96.5 % (95-98); ARTERIAL BLOOD GAS PCO2 34 mm/Hg (35-45); ARTERIAL BLOOD GAS PH 7.51 (7.35-7.45); ARTERIAL BLOOD GAS PO2 57 mm/Hg (80-100); ARTERIAL BLOOD GAS TCO2 28.1 mmol/L (22-28)
[2017-09-16 08:29] LABS: BASO % 0.4 % (0.0-2.0); EOS % 0.3 % (0.0-4.0); HEMOGLOBIN 13.2 g/dL (12.0-16.0); LYMPH # 1.6 K/uL (1.0-4.3); LYMPH % 27.9 % (20.0-40.0); MEAN CELL VOLUME 89.3 fl (81.0-99.0); MEAN CORPUSCULAR HEMOGLOBIN 30.7 pg (27.0-31.0); MEAN CORPUSCULAR HGB CONC 34.3 g/dL (33.0-37.0); MEAN PLATELET VOLUME 10.1 fl (7.2-11.7); MONO # 0.8 K/uL (0.0-0.8); MONO % 13.5 % (0.0-10.0); NEUT # 3.3 K/uL (1.8-7.0); NEUT % 57.9 % (50.0-75.0); NRBC % 0.1 % (0.0-0.0); RBC 4.3 Mil/uL (3.80-5.20); WHITE BLOOD COUNT 5.7 K/uL (4.8-10.8)
[2017-09-16 08:48] LABS: INR 1.1 (0.9-1.2); PARTIAL THROMBOPLASTIN TIME 26.8 Seconds (25.6-37.1); PROTHROMBIN TIME 12.5 Seconds (9.8-13.1)
[2017-09-16 09:42] LABS: ALBUMIN 3.2 g/dL (3.5-5.0); ALT/SGPT 51 U/L (9-52); AST/SGOT 40 U/L (14-36); BLOOD UREA NITROGEN 12 mg/dl (7-17); CALCIUM 8.3 mg/dL (8.4-10.2); GFR AFRICAN-AMERICAN > 60; GFR NON-AFRICAN AMERICAN > 60
[2017-09-16 09:53] LABS: B-TYPE NATRIURETIC PEPTIDE 319 pg/ml (0-900)
[2017-09-16] MEDS ORDERED: Potassium Chloride 10 mEq ER Tab PO STA (10:40)
[2017-09-16] MEDS ORDERED: Potassium Chloride 10 mEq ER Tab PO ONE (10:57)
[2017-09-16] MEDS ORDERED: methylPREDNISolone 50 MG in Sodium Chloride 0.9% 50 ML IV SCH (17:00)
--- NOTE | 2017-09-16 17:26 | CARD ---
APPROVED REPORT EKG Measurement Heart [id number] <Conclusion> Normal sinus rhythm Normal ECG
[2017-09-16] MEDS: Albuterol-Ipratrop 3 mg / 0.5 (3 ml) UD INH SCH (20:20)
[2017-09-16] MEDS: Fluticasone-Salmeterol 250-50mcg Diskus IH SCH (22:53)
[2017-09-17] MEDS: Albuterol-Ipratrop 3 mg / 0.5 (3 ml) UD INH SCH ×4 (01:00→19:56)
[2017-09-17 05:30] LABS: HEMOGLOBIN 12.8 g/dL (12.0-16.0); MEAN CELL VOLUME 89.1 fl (81.0-99.0); MEAN CORPUSCULAR HEMOGLOBIN 30.4 pg (27.0-31.0); MEAN CORPUSCULAR HGB CONC 34.1 g/dL (33.0-37.0); RBC 4.2 Mil/uL (3.80-5.20); RED CELL DISTRIBUTION WIDTH 12.9 % (11.5-14.5); WHITE BLOOD COUNT 7.8 K/uL (4.8-10.8)
[2017-09-17 05:58] LABS: BLOOD UREA NITROGEN 16 mg/dl (7-17); CALCIUM 8.7 mg/dL (8.4-10.2); GFR AFRICAN-AMERICAN > 60; GFR NON-AFRICAN AMERICAN > 60
[2017-09-17] MEDS: Potassium Chloride 20 mEq ER Tab PO SCH ×2 (08:31→16:29)
[2017-09-17] MEDS: Pantoprazole 40 mg EC Tab PO SCH (08:32)
[2017-09-17] MEDS: Azithromycin 500 MG in Sodium Chloride 0.9% 250 ML IVPB SCH (09:28)
[2017-09-17] MEDS: Fluticasone-Salmeterol 250-50mcg Diskus IH SCH ×2 (09:28→21:48)
--- NOTE | 2017-09-17 09:54 | RAD ---
HISTORY: Dyspnea COMPARISON: No prior. FINDINGS: LUNGS: Single frontal portable view of the chest reveals left pacemaker with leads overlying the right atrium and right ventricle. Heart is mildly enlarged. There is moderate calcific atherosclerotic change of the aorta. Mild interstitial changes are noted without focal alveolar infiltrate. There may be some minimal atelectasis seen at the left lung base. No effusion or pneumothorax is seen. Mild chronic apical pleural thickening is seen. Bony structures appear intact. PLEURA: See above CARDIOVASCULAR: Cardiomegaly. OSSEOUS STRUCTURES: No significant abnormalities. VISUALIZED UPPER ABDOMEN: Normal. OTHER FINDINGS: None. IMPRESSION: Mild cardiomegaly. Mild interstitial change without focal alveolar infiltrate. No gross CHF. Status post left pacemaker.
[2017-09-17] MEDS: Enoxaparin 40 mg Syringe SC SCH (12:33)
--- NOTE | 2017-09-17 15:52 | CT ---
PROCEDURE: CT scan chest dated 09/17/2016 HISTORY: Pneumonia. COMPARISON: Comparison made with CT scan chest dated 05/02/2017 and chest radiograph dated 09/16/2017. TECHNIQUE: Contiguous helical/transaxial images were obtained through the chest without intravenous contrast enhancement. Sagittal and coronal reconstructions were performed. Radiation dose (DLP): 493.67 mGy-cm. This CT exam was performed using one or more of the following dose reduction techniques: Automated exposure control, adjustment of the mA and/or kV according to patient size, and/or use of iterative reconstruction technique. . FINDINGS: LUNGS: Mild hazy ground-glass opacities seen in the lower lung zones which are nonspecific though could represent sequela of air trapping ; rule out reactive/inflammatory airway disease. No focal consolidation is identified. . Mild biapical pleural thickening and parenchymal scarring changes. Nodular opacity in the right posterior sulcus likely representing some combination of atelectasis/ scar. . There is a small elliptical shaped bulla left medial lung base. MEDIASTINUM: Heart is enlarged. Again noted is in situ bipolar pacemaker. The ascending thoracic aorta measures approximately 3.34 cm and descending thoracic aorta measures approximately 2.9 cm. Pulmonary trunk measures approximately 2.8 cm. Three-vessel arch. Partially calcified atherosclerotic plaque seen along the transverse portion and descending portion of the thoracic aorta. There are a few small nonspecific mediastinal and prevascular lymph nodes. Evaluation for hilar adenopathy is limited due to the lack of circulating intravenous contrast material. Central airways are midline and patent. There are no obvious central endobronchial lesions. PLEURA: No effusion. No evidence of pneumothorax. BONES: Multilevel degenerative spondylosis of the thoracic spine with bridging anterior osteophyte formation seen at several levels suggesting DISH. Note is made of a small rounded sclerotic lesion within the the T9 segment likely representing bone island or osteoma. . . UPPER ABDOMEN: Spleen is mildly enlarged measuring over 13 cm in its AP dimension. No splenic mass or collection seen. There is a small to medium size hiatal hernia with wall thickening of the distal esophagus that could be due to protrusion of gastric mucosa however the possibility of esophagitis or other intrinsic/invasive wall lesion not excluded. Small fluid level within the distal esophagus likely due to gastroesophageal reflux. Apparent cholecystectomy with metallic clips in the gallbladder fossa region. The stomach is distended with food debris and air. OTHER FINDINGS: None. IMPRESSION: No evidence of acute infiltrate effusion or pneumothorax. Mild hazy ground-glass opacities in the lower lung zones suggesting air trapping. Small small nodular opacity in the right posterior sulcus that probably represents some combination of chronic atelectasis/scarring. Small bulla left medial lung base. Minor biapical pleural thickening and adjacent parenchymal scarring Cardiomegaly. Small to medium size hiatal hernia with wall thickening of the distal esophagus that could be due to protrusion of gastric mucosa however esophagitis or other intrinsic/invasive wall lesion not excluded. There is also small of fluid levels seen in the distal esophagus which is likely due to some gastroesophageal reflux. Splenomegaly. See above discussion for additional details and findings.
[2017-09-18] MEDS: Albuterol-Ipratrop 3 mg / 0.5 (3 ml) UD INH SCH ×2 (01:56→07:30)
[2017-09-18 05:31] LABS: HEMOGLOBIN 12.8 g/dL (12.0-16.0); MEAN CELL VOLUME 89.6 fl (81.0-99.0); MEAN CORPUSCULAR HGB CONC 33.5 g/dL (33.0-37.0); RBC 4.27 Mil/uL (3.80-5.20); RED CELL DISTRIBUTION WIDTH 13.3 % (11.5-14.5); WHITE BLOOD COUNT 12.2 K/uL (4.8-10.8)
[2017-09-18 05:44] LABS: ALBUMIN 3.2 g/dL (3.5-5.0); ALT/SGPT 36 U/L (9-52); AST/SGOT 26 U/L (14-36); BLOOD UREA NITROGEN 22 mg/dl (7-17); CALCIUM 8.7 mg/dL (8.4-10.2); GFR AFRICAN-AMERICAN > 60; GFR NON-AFRICAN AMERICAN > 60
[2017-09-18] MEDS: Levothyroxine 125 MCG TAB PO SCH (06:55)
--- NOTE | 2017-09-18 07:23 | CP.PCM.HP ---
Past Patient History - Infectious Disease Hx of Infectious Diseases: None - Tetanus Immunizations Tetanus Immunization: Unknown - Past Medical History & Family History Past Medical History?: Yes - Past Social History Smoking Status: Never Smoked - CARDIAC Hx Cardiac Disorders: Yes (arrhythmia, AF, PPM) Hx Hypercholesterolemia: Yes Hx Hypertension: Yes - PULMONARY Hx Chronic Obstructive Pulmonary Disease (COPD): (asthma, bronchitis) - NEUROLOGICAL Hx Alzheimer's Disease: No Hx Dementia: No Hx Transient Ischemic Attacks (TIA): No - HEENT Hx HEENT Problems: Yes Other/Comment: implants both eyes - RENAL Hx Chronic Kidney Disease: No - ENDOCRINE/METABOLIC Hx Hypothyroidism: Yes - HEMATOLOGICAL/ONCOLOGICAL Hx Blood Disorders: No - INTEGUMENTARY Hx Dermatological Problems: No - MUSCULOSKELETAL/RHEUMATOLOGICAL Hx Arthritis: Yes - GASTROINTESTINAL Hx Gastritis: Yes - GENITOURINARY/GYNECOLOGICAL Hx Genitourinary Disorders: No - PSYCHIATRIC Hx Psychophysiologic Disorder: No Hx Substance Use: No - SURGICAL HISTORY Hx Appendectomy: Yes Hx Cholecystectomy: Yes Hx Tonsillectomy: Yes - ANESTHESIA Hx Anesthesia: Yes Hx Anesthesia Reactions: No Hx Malignant Hyperthermia: No Meds Home Medications: Home Medication List Medication Instructions Recorded Confirmed Type Azithromycin [Zithromax] 500 mg PO DAILY #4 tablet 09/19/17 Rx Benzonatate [Tessalon Perles] 100 mg PO TID PRN #15 sgl 09/19/17 Rx Fluticasone/Salmeterol 250/50 1 puff IH Q12 #1 puff 09/19/17 Rx [Advair Diskus 250/50] Levothyroxine [Synthroid] 125 mcg PO DAILY@0630 #30 tab 09/19/17 Rx Methylprednisolone [Medrol Dose 4 mg PO DAILY #21 mg 09/19/17 Rx Pack (21 tabs)] Oseltamivir [Tamiflu SUSP] 75 mg PO BID #6 ml 09/19/17 Rx Allergies/Adverse Reactions: Allergies Allergy/AdvReac Type Severity Reaction Status Date / Time albuterol Allergy RASH Verified 10/06/15 12:18 aspirin Allergy RASH Verified 10/06/15 12:18 iodine Allergy RASH Verified 10/06/15 12:18 Penicillins Allergy RASH Verified 10/06/15 12:18 ammonia AdvReac VOMITING Verified 11/02/15 13:38 Results - Vital Signs Recent Vital Signs: Last Vital Signs Temp 98.1 F 09/18/17 05:43 Pulse 89 09/18/17 05:43 Resp 18 09/18/17 05:43 BP 126/74 09/18/17 05:43 Pulse Ox 95 09/18/17 05:43 - Labs Result Diagrams: 09/19/17 04:15 09/19/17 04:15 Labs: Laboratory Results - last 24 hr 09/17/17 09/17/17 09/18/17 07:51 17:42 04:25 WBC 12.2 H D RBC 4.27 Hgb 12.8 Hct 38.2 MCV 89.6 MCH 30.0 MCHC 33.5 RDW 13.3 Plt Count 141 Sodium Potassium Chloride Carbon Dioxide Anion Gap BUN Creatinine Est GFR ( Amer) Est GFR (Non-Af Amer) Random Glucose Calcium Total Bilirubin AST ALT Alkaline Phosphatase Total Protein Albumin Globulin Albumin/Globulin Ratio TSH 3rd Generation 0.18 L 0.13 L 09/18/17 04:25 WBC RBC Hgb Hct MCV MCH MCHC RDW Plt Count Sodium 144 Potassium 4.1 Chloride 109 H Carbon Dioxide 25 Anion Gap 14 BUN 22 H Creatinine 0.9 Est GFR ( Amer) > 60 Est GFR (Non-Af Amer) > 60 Random Glucose 134 H Calcium 8.7 Total Bilirubin 0.6 AST 26 ALT 36 Alkaline Phosphatase 68 Total Protein 6.6 Albumin 3.2 L Globulin 3.4 Albumin/Globulin Ratio 1.0 TSH 3rd Generation - Imaging and Cardiology Chest x-ray Status: Report reviewed by me CT scan - chest Status: Report reviewed by me Assessment & Plan (1) Pneumonitis Status: Acute (2) Flu Status: Acute (3) Asthma exacerbation Status: Acute (4) Hypokalemia Status: Acute (5) Gastro-esophageal reflux disease without esophagitis Status: Chronic (6) Other specified hypothyroidism Status: Chronic Decision To Admit - Pt Status Changed To: Hospital Disposition Of: Inpatient (hetal) - Admit Certification Admit to Inpatient:: After my assessment, the patient will require hospitalization for at least two midnights. This is because of the severity of symptoms shown, intensity of services needed, and/or the medical risk in this patient being treated as an outpatient.
[2017-09-18] MEDS: Azithromycin 500 MG in Sodium Chloride 0.9% 250 ML IVPB SCH (09:45)
[2017-09-18] MEDS: Fluticasone-Salmeterol 250-50mcg Diskus IH SCH ×2 (09:46→22:54)
[2017-09-18] MEDS: Potassium Chloride 20 mEq ER Tab PO SCH ×2 (09:47→17:31)
[2017-09-18] MEDS: Pantoprazole 40 mg EC Tab PO SCH (09:47)
[2017-09-18] MEDS: Enoxaparin 40 mg Syringe SC SCH (09:47)
[2017-09-18] MEDS ORDERED: MethylPREDNISolone 40 mg Vial IV SCH (13:37)
[2017-09-18] MEDS: Oseltamivir 6 MG/ML PO SCH ×2 (17:29→17:30)
--- NOTE | 2017-09-18 18:19 | CARD ---
APPROVED REPORT EXAM: Two-dimensional and M-mode echocardiogram with Doppler and color Doppler. Other Information Quality : AverageRhythm : NSR INDICATION Pleural Effusion 2D DIMENSIONS IVSd1.28 (0.7-1.1cm)LVDd4.06 (3.9-5.9cm) LVOT Diameter2.01 (1.8-2.4cm)PWd1.04 (0.7-1.1cm) IVSs1.31 (0.8-1.2cm)LVDs3.02 (2.5-4.0cm) FS (%) 25.7 %PWs1.31 (0.8-1.2cm) LVEF (%)51.0 (>50%) M-Mode DIMENSIONS Left Atrium (MM)4.72 (2.5-4.0cm)IVSd0.91 (0.7-1.1cm) Aortic Root3.10 (2.2-3.7cm)LVDd5.25 (4.0-5.6cm) Aortic Cusp Exc.1.89 (1.5-2.0cm)PWd1.02 (0.7-1.1cm) IVSs1.13 cmFS (%) 38 % LVDs3.25 (2.0-3.8cm)PWs1.89 cm LVEF (%)69 (>50%) Aortic Valve AI P 1/2 [id number] Mitral Valve MV E Krwacyvm09.1cm/sMV E Peak Gr.88mmHgMV DECEL CFGN219mp MV A Fwryrhjo436.9cm/sMV SWC33iaB/A ratio0.7 MVA (PHT)3.77cm2 TDI Lateral E' Peak V9.29cm/sE/Lateral E'7.7E/Medial E'0.0 Tricuspid Valve TR Peak Bqgbmgwb093tc/sRAP [id number] Peak Gr.30mmHg [id number] LEFT VENTRICLE The left ventricle is normal in size. There is normal left ventricular wall thickness. The left ventricular function is normal. The left ventricular ejection fraction is - 65%. There is normal LV segmental wall motion. Transmitral Doppler flow pattern is Grade I-abnormal relaxation pattern. No left ventricle thrombus noted on this study. There is no ventricular septal defect visualized. There is no left ventricular aneurysm. There is no mass noted in the left ventricle. RIGHT VENTRICLE The right ventricle is normal size. There is normal right ventricular wall thickness. The right ventricular systolic function is normal. Pacemaker leads are seen in the RV and RA. ATRIA The left atrium is moderately dilated. There is no thrombus suspected in the left atrium. The right atrium size is normal. The interatrial septum is intact with no evidence for an atrial septal defect. AORTIC VALVE The aortic valve is normal in structure. No aortic regurgitation is present. There is no aortic valvular stenosis. MITRAL VALVE The mitral valve is normal in structure. There is no evidence of mitral valve prolapse. There is no mitral valve stenosis. Mitral regurgitation is mild to moderate. TRICUSPID VALVE The tricuspid valve is normal in structure. There is moderate tricuspid regurgitation. Right ventricular systolic pressure is estimated at 36 mmHg. There is no tricuspid valve prolapse or vegetation. There is no tricuspid valve stenosis. PULMONIC VALVE The pulmonary valve is normal in structure. There is no pulmonic valvular regurgitation. GREAT VESSELS The aortic root is normal in size. The IVC is normal in size and collapses >50% with inspiration. PERICARDIAL EFFUSION The pericardium appears normal. No pleural effusion was appreciated on this study. <Conclusion> The left ventricle is normal in size and wall thickness. The left ventricular function is normal. The left ventricular ejection fraction is - 65%. The left atrium is moderately dilated. The mitral, aortic and tricuspid valves are normal. There is mild to moderate mitral regurgitation and moderate tricuspid regurgitation.
--- NOTE | 2017-09-19 00:01 | CP.PCM.PN ---
Subjective - Date & Time of Evaluation Date of Evaluation: 09/18/17 Time of Evaluation: 18:00 - Subjective Subjective: feeling better echo pending able to hydrate better. notes she able to breath with no chest discomfort. labs noted-k-4.1, ABG pending. Objective - Vital Signs/Intake and Output Vital Signs (last 24 hours): Temp Pulse Resp BP Pulse Ox 97.9 F 76 20 110/64 95 09/18/17 20:04 09/18/17 20:04 09/18/17 20:04 09/18/17 20:04 09/18/17 20:04 - Medications Medications: Current Medications Amlodipine Besylate (Norvasc) 10 mg PO DAILY [facility] Last Admin: 09/18/17 09:47 Dose: 10 mg Benzonatate (Tessalon Perles) 100 mg PO TID PRN PRN Reason: Cough Enoxaparin Sodium (Lovenox) 40 mg SC DAILY [facility] PRN Reason: Protocol Last Admin: 09/18/17 09:47 Dose: 40 mg Azithromycin 500 mg/ Sodium (Chloride) 250 mls @ 250 mls/hr IVPB DAILY MATY PRN Reason: Protocol Last Admin: 09/18/17 09:45 Dose: 250 mls/hr Levothyroxine Sodium (Synthroid) 125 mcg PO DAILY@0630 [facility] Last Admin: 09/18/17 06:55 Dose: 125 mcg Methylprednisolone (Solu-Medrol) 40 mg IV DAILY [facility] Metoclopramide HCl (Reglan) 10 mg PO ACHS PRN PRN Reason: Nausea/Vomiting Oseltamivir Phosphate (Tamiflu Susp) 75 mg PO BID [facility] PRN Reason: Protocol Stop: 09/21/17 09:01 Last Admin: 09/18/17 17:30 Dose: 75 mg Pantoprazole Sodium (Protonix Ec Tab) 40 mg PO DAILY [facility] Last Admin: 09/18/17 09:47 Dose: 40 mg Potassium Chloride (K-Dur 20 Meq Er Tab) 20 meq PO BID [facility] Last Admin: 09/18/17 17:31 Dose: 20 meq Fluticasone/Salmeterol (Advair Diskus 250/50) 1 puff IH Q12 [facility] Last Admin: 09/18/17 22:54 Dose: 1 puff - Labs Labs: 09/18/17 04:25 01/09/18 04:25 PT 12.5 Seconds (9.8-13.1) 09/16/17 07:45 INR 1.1 (0.9-1.2) 09/16/17 07:45 APTT 26.8 Seconds (25.6-37.1) 09/16/17 07:45 Assessment and Plan (1) Pneumonitis Status: Acute (2) Flu Status: Acute (3) Asthma exacerbation Status: Acute (4) Hypokalemia Status: Acute (5) Gastro-esophageal reflux disease without esophagitis Status: Chronic (6) Other specified hypothyroidism Status: Chronic
[2017-09-19 05:29] VITALS: O2SAT 96
[2017-09-19 05:58] LABS: HEMOGLOBIN 12.7 g/dL (12.0-16.0); MEAN CELL VOLUME 89.7 fl (81.0-99.0); MEAN CORPUSCULAR HEMOGLOBIN 30.1 pg (27.0-31.0); MEAN CORPUSCULAR HGB CONC 33.5 g/dL (33.0-37.0); RBC 4.24 Mil/uL (3.80-5.20); RED CELL DISTRIBUTION WIDTH 13.1 % (11.5-14.5); WHITE BLOOD COUNT 8.7 K/uL (4.8-10.8)
[2017-09-19 06:00] LABS: BLOOD UREA NITROGEN 23 mg/dl (7-17); CALCIUM 8.5 mg/dL (8.4-10.2); GFR AFRICAN-AMERICAN > 60; GFR NON-AFRICAN AMERICAN > 60
[2017-09-19] MEDS: Levothyroxine 125 MCG TAB PO SCH (06:11)
[2017-09-19 08:05] VITALS: BP 145/77; PULSE 66; RESP 20; TEMP 97.6
[2017-09-19] MEDS: Oseltamivir 6 MG/ML PO SCH (08:13)
[2017-09-19] MEDS: Potassium Chloride 20 mEq ER Tab PO SCH (08:14)
[2017-09-19] MEDS: Pantoprazole 40 mg EC Tab PO SCH (08:14)
[2017-09-19] MEDS: Enoxaparin 40 mg Syringe SC SCH (08:15)
[2017-09-19] MEDS: Fluticasone-Salmeterol 250-50mcg Diskus IH SCH (10:27)
[2017-09-19] MEDS: Azithromycin 500 MG in Sodium Chloride 0.9% 250 ML IVPB SCH (10:27)
--- NOTE | 2017-09-19 19:43 | CP.PCM.DIS ---
Provider - Provider Date of Admission: 09/17/17 08:18 Attending physician: David Robles MD Time Spent in preparation of Discharge (in minutes): 30 Diagnosis - Discharge Diagnosis (1) Pneumonitis Status: Acute (2) Flu Status: Acute (3) Asthma exacerbation Status: Acute (4) Hypokalemia Status: Acute (5) Gastro-esophageal reflux disease without esophagitis Status: Chronic (6) Other specified hypothyroidism Status: Chronic Hospital Course - Lab Results Lab Results: Micro Results 09/16/17 08:08 Blood Blood Culture - Preliminary NO GROWTH AFTER 3 DAYS 09/16/17 07:45 Blood Blood Culture - Preliminary NO GROWTH AFTER 3 DAYS Most Recent Lab Values WBC 8.7 K/uL (4.8-10.8) 09/19/17 04:15 RBC 4.24 Mil/uL (3.80-5.20) 09/19/17 04:15 Hgb 12.7 g/dL (12.0-16.0) 09/19/17 04:15 Hct 38.0 % (34.0-47.0) 09/19/17 04:15 MCV 89.7 fl (81.0-99.0) 09/19/17 04:15 MCH 30.1 pg (27.0-31.0) 09/19/17 04:15 MCHC 33.5 g/dL (33.0-37.0) 09/19/17 04:15 RDW 13.1 % (11.5-14.5) 09/19/17 04:15 Plt Count 156 K/uL (130-400) 09/19/17 04:15 MPV 10.1 fl (7.2-11.7) 09/16/17 07:45 Neut % (Auto) 57.9 % (50.0-75.0) 09/16/17 07:45 Lymph % (Auto) 27.9 % (20.0-40.0) 09/16/17 07:45 [place] % (Auto) 13.5 % (0.0-10.0) H 09/16/17 07:45 Eos % (Auto) 0.3 % (0.0-4.0) 09/16/17 07:45 Baso % (Auto) 0.4 % (0.0-2.0) 09/16/17 07:45 Neut # 3.3 K/uL (1.8-7.0) 09/16/17 07:45 Lymph # 1.6 K/uL (1.0-4.3) 09/16/17 07:45 [place] # 0.8 K/uL (0.0-0.8) 09/16/17 07:45 Eos # 0.0 K/uL (0.0-0.7) 09/16/17 07:45 Baso # 0.0 K/uL (0.0-0.2) 09/16/17 07:45 PT 12.5 Seconds (9.8-13.1) 09/16/17 07:45 INR 1.1 (0.9-1.2) 09/16/17 07:45 APTT 26.8 Seconds (25.6-37.1) 09/16/17 07:45 pCO2 34 mm/Hg (35-45) L 09/16/17 07:55 pO2 57 mm/Hg (80-100) L 09/16/17 07:55 HCO3 28.1 mmol/L (21-28) H 09/16/17 07:55 ABG pH 7.51 (7.35-7.45) H 09/16/17 07:55 ABG Total CO2 28.1 mmol/L (22-28) H 09/16/17 07:55 ABG O2 Saturation 96.5 % (95-98) 09/16/17 07:55 ABG Base Excess 4.3 mmol/L (-2.0-3.0) H 09/16/17 07:55 Rigoberto Test Yes 09/16/17 07:55 ABG Potassium 2.8 mmol/L (3.6-5.2) L 09/16/17 07:55 A-a O2 Difference 50.0 mm/Hg 09/16/17 07:55 Sodium 137.0 mmol/L (132-148) 09/16/17 07:55 Chloride 108.0 mmol/L (98-107) H 09/16/17 07:55 Glucose 98 mg/dL (65-105) 09/16/17 07:55 Lactate 0.5 mmol/L (0.7-2.1) L 09/16/17 07:55 FiO2 21.0 % 09/16/17 07:55 Sodium 143 mmol/l (132-148) 09/19/17 04:15 Potassium 4.1 MMOL/L (3.6-5.0) 09/19/17 04:15 Chloride 108 mmol/L (98-107) H 09/19/17 04:15 Carbon Dioxide 25 mmol/L (22-30) 09/19/17 04:15 Anion Gap 14 (10-20) 09/19/17 04:15 BUN 23 mg/dl (7-17) H 09/19/17 04:15 Creatinine 0.8 mg/dl (0.7-1.2) 09/19/17 04:15 Est GFR ( Amer) > 60 09/19/17 04:15 Est GFR (Non-Af Amer) > 60 09/19/17 04:15 Random Glucose 95 mg/dL (65-105) 09/19/17 04:15 Calcium 8.5 mg/dL (8.4-10.2) 09/19/17 04:15 Total Bilirubin 0.6 mg/dl (0.2-1.3) 09/18/17 04:25 AST 26 U/L (14-36) 09/18/17 04:25 ALT 36 U/L (9-52) 09/18/17 04:25 Alkaline Phosphatase 68 U/L (38-126) 09/18/17 04:25 Troponin I < 0.0120 ng/mL (0.00-0.120) 09/16/17 07:45 NT-Pro-B Natriuret Pep 319 pg/ml (0-900) 09/16/17 07:45 Total Protein 6.6 G/DL (6.3-8.2) 09/18/17 04:25 Albumin 3.2 g/dL (3.5-5.0) L 09/18/17 04:25 Globulin 3.4 gm/dL (2.2-3.9) 09/18/17 04:25 Albumin/Globulin Ratio 1.0 (1.0-2.1) 09/18/17 04:25 TSH 3rd Generation 0.13 mIU/ML (0.46-4.68) L 09/17/17 17:42 Arterial Blood Potassium 2.8 mmol/L (3.6-5.2) L 09/16/17 07:55 Influenza Typ A,B (EIA) Pos for influenza a (NEGATIVE) H 09/16/17 07:45 Discharge Exam - Head Exam Head Exam: ATRAUMATIC Discharge Plan - Discharge Medications Prescriptions: Fluticasone/Salmeterol 250/50 [Advair Diskus 250/50] 1 puff IH Q12 #1 puff Methylprednisolone [Medrol Dose Pack (21 tabs)] 4 mg PO DAILY #21 mg Levothyroxine [Synthroid] 125 mcg PO DAILY@0630 #30 tab Oseltamivir [Tamiflu SUSP] 75 mg PO BID #6 ml Benzonatate [Tessalon Perles] 100 mg PO TID PRN #15 sgl PRN Reason: Cough Azithromycin [Zithromax] 500 mg PO DAILY #4 tablet - Follow Up Plan Condition: FAIR Disposition: HOME/ ROUTINE Instructions: Asthma (DC), Influenza (DC) Additional Instructions: pt. doing well this morning sitting oob to chair; denies sob, cough improved, no fever, chills, n//vd Echo wnl pt. cleared for discharge to Home today by Rx for all meds provided cont. medrol dose pack, zithromax f/u with next at 12 pm Referrals: David Robles MD [Medical Doctor] -
== END 2017-09-19 12:27 | disposition home health service (06) | DRG 194 ==
LOC: H.ER 06:25 → H.ERHOLD 10:38 → H.TEL 11:54 → OBSVTOIN 09-17 08:18
PROVIDERS: ADMIT Internal Medicine; ATTEND Internal Medicine
PROC: 3E0F73Z Introduction of Anti-inflammatory into Respiratory Tract, Via Natural or Artificial Opening (ICD-10-PCS; principal; 2017-09-17)
DX: J10.00 Influenza due to other identified influenza virus with unspecified type of pneumonia (principal); J45.901 Unspecified asthma with (acute) exacerbation; J18.9 Pneumonia, unspecified organism; I48.91 Unspecified atrial fibrillation; E87.6 Hypokalemia; I10 Essential (primary) hypertension; E03.8 Other specified hypothyroidism; E78.5 Hyperlipidemia, unspecified; K21.9 Gastro-esophageal reflux disease without esophagitis; K29.70 Gastritis, unspecified, without bleeding; M19.90 Unspecified osteoarthritis, unspecified site; Z95.0 Presence of cardiac pacemaker; Z87.891 Personal history of nicotine dependence; Z88.0 Allergy status to penicillin; Z88.6 Allergy status to analgesic agent; Z91.041 Radiographic dye allergy status

== ENCOUNTER 2017-09-24 11:46 | Inpatient (IN) | payer MEDICARE, OTHER ==
[2017-09-24 11:46] VITALS: BMI 27.4
[2017-09-24] MEDS ORDERED: Sodium Chloride 0.9% 1,000 ML IV STA (12:17)
[2017-09-24 12:39] LABS: BASO # 0.1 K/uL (0.0-0.2); EOS # 0.1 K/uL (0.0-0.7); EOS % 0.4 % (0.0-4.0); HEMOGLOBIN 14.9 g/dL (12.0-16.0); LYMPH # 2.2 K/uL (1.0-4.3); LYMPH % 14.6 % (20.0-40.0); MEAN CELL VOLUME 89.6 fl (81.0-99.0); MEAN CORPUSCULAR HEMOGLOBIN 30.7 pg (27.0-31.0); MEAN CORPUSCULAR HGB CONC 34.3 g/dL (33.0-37.0); MEAN PLATELET VOLUME 9.5 fl (7.2-11.7); MONO # 1.4 K/uL (0.0-0.8); MONO % 9.2 % (0.0-10.0); NEUT # 11.1 K/uL (1.8-7.0); NEUT % 74.8 % (50.0-75.0); RBC 4.84 Mil/uL (3.80-5.20); RED CELL DISTRIBUTION WIDTH 13.2 % (11.5-14.5); WHITE BLOOD COUNT 14.9 K/uL (4.8-10.8)
[2017-09-24] MEDS ORDERED: Morphine 4 MG/ML VIAL IV STA (12:45)
[2017-09-24] MEDS ORDERED: Morphine 4 MG/ML VIAL ONE (12:48)
[2017-09-24 12:51] LABS: ALB/GLOB RATIO 1.1 (1.0-2.1); ALBUMIN 3.3 g/dL (3.5-5.0); ALT/SGPT 56 U/L (9-52); AST/SGOT 27 U/L (14-36); BLOOD UREA NITROGEN 29 mg/dl (7-17); CALCIUM 9.2 mg/dL (8.4-10.2); GFR AFRICAN-AMERICAN > 60; GFR NON-AFRICAN AMERICAN 53; LIPASE 323 U/L (23-300)
--- NOTE | 2017-09-24 13:47 | CT ---
PROCEDURE: CT Abdomen and Pelvis without intravenous contrast HISTORY: Upper abdominal pain. Relevant medical history: Influenza. COMPARISON: 05/01/2017 abdominal ultrasound 10/16/2016 CT abdomen and pelvis TECHNIQUE: Technique. Contrast Dose: Go Radiation dose: Total exam DLP = mGy-cm. This CT exam was performed using one or more of the following dose reduction techniques: Automated exposure control, adjustment of the mA and/or kV according to patient size, and/or use of iterative reconstruction technique. FINDINGS: LOWER THORAX: Persistent thickening of the distal esophagus associate with small hiatal hernia. Findings may represent mild esophagitis. Similar findings identified on prior CT scan thorax 09/17/2017 LIVER: Unremarkable. No gross lesion or ductal dilatation. GALLBLADDER AND BILE DUCTS: Status post cholecystectomy. No abnormality is seen in the gallbladder fossa. PANCREAS: Unremarkable. No gross lesion or ductal dilatation. SPLEEN: Unremarkable. ADRENALS: Unremarkable. No mass. KIDNEYS AND URETERS: Unremarkable. No hydronephrosis. No solid mass. Incidental finding(s): Left renal 66.3 cm in diameter. Parapelvic cyst right kidney. VASCULATURE: Unremarkable. No aortic aneurysm. BOWEL: Unremarkable. No obstruction. No gross mural thickening. APPENDIX: No abnormalities to suggest acute appendicitis. No right lower quadrant inflammatory processes identified. PERITONEUM: Unremarkable. No free fluid. No free air. LYMPH NODES: Unremarkable. No enlarged lymph nodes. BLADDER: Unremarkable. REPRODUCTIVE: Prior hysterectomy. BONES: No acute fracture. Multilevel degenerative change primarily disc space narrowing and vacuum disc phenomenon. OTHER FINDINGS: None. IMPRESSION: No acute findings related to/accounting for the clinical presentation. Additional benign and/or incidental findings described above.
--- NOTE | 2017-09-24 14:10 | RAD ---
HISTORY: SOB COMPARISON: Portable chest 09/16/2017. FINDINGS: LUNGS: No acute infiltrate identified bilaterally appear prominent right hilar vascular markings are again reiterated as compared to prior chest CT 09/17/2017 with no gross lymphadenopathy appreciable on the prior CT. PLEURA: No significant pleural effusion identified, no pneumothorax apparent. CARDIOVASCULAR: Stable cardiac silhouette. Permanent cardiac pacemaker unchanged in appearance. OSSEOUS STRUCTURES: No significant abnormalities. VISUALIZED UPPER ABDOMEN: Incidental note once again made of prior cholecystectomy. OTHER FINDINGS: None. IMPRESSION: No acute cardiopulmonary disease is identified. Pacemaker again identified in situ with mildly prominent right hilar vascular markings again evident.
[2017-09-24 14:17] LABS: SQUAMOUS EPITHIAL < 1 /hpf (0-5); URINE BILIRUBIN NEGATIVE (NEGATIVE); URINE BLOOD NEGATIVE (NEGATIVE); URINE CLARITY SLIGHTY-CLOUDY (Clear); URINE COLOR YELLOW (YELLOW); URINE GLUCOSE (UA) NEG (Normal); URINE LEUKOCYTE ESTERASE NEG Leu/uL (Negative); URINE NITRATE NEGATIVE (NEGATIVE); URINE PROTEIN NEGATIVE (NEGATIVE); URINE UROBILINOGEN 0.2-1.0 mg/dL (0.2-1.0)
--- NOTE | 2017-09-24 16:19 | ED PDOC ---
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 Recently diagnosed w influenza requiring hospitalization last week. Free Soil better on discharge but now upper abd pain radiating to back with multiple episodes vomiting has developed. Abnormal Vaginal Bleeding: No Past Medical History Reviewed: Historical Data, Nursing Documentation, Vital Signs Vital Signs: Last Vital Signs Temp 98.0 F 09/24/17 11:55 Pulse 108 H 09/24/17 11:55 Resp 16 09/24/17 11:55 BP 138/91 H 09/24/17 11:55 Pulse Ox 100 09/24/17 11:55 - Medical History PMH: Arthritis, Asthma, Atrial Fibrillation, Bronchitis, Cardia Arrhythmia, COPD (asthma, bronchitis), Fractures (right hip/right shoulder), Gastritis, GERD , HTN, Hypercholesterolemia, Hypothyroidism Denies: Alzheimer's Disease, CHF, Dementia, Pneumonia, Pulmonary Embolism, Chronic Kidney Disease, Sleep Apnea, TIA - Surgical History Surgical History: Appendectomy, Cholecystectomy, Pacemaker, Tonsillectomy - Family History Family History: States: Unknown Family Hx - Home Medications Home Medications: Ambulatory Orders Medication Instructions Recorded Fluticasone/Salmeterol 250/50 1 puff INH Q12H 11/08/15 [Advair Diskus 250/50] amLODIPine [Norvasc] 10 mg PO DAILY 02/17/16 Esomeprazole Magnesium [Nexium] 40 mg PO DAILY 07/25/16 Metoclopramide [Reglan] 10 mg PO ACTID 05/01/17 Azithromycin [Zithromax] 500 mg PO DAILY #4 tablet 09/19/17 Benzonatate [Tessalon Perles] 100 mg PO TID PRN #15 sgl 09/19/17 Fluticasone/Salmeterol 250/50 1 puff IH Q12 #1 puff 09/19/17 [Advair Diskus 250/50] Levothyroxine [Synthroid] 125 mcg PO DAILY@0630 #30 tab 09/19/17 Methylprednisolone [Medrol Dose 4 mg PO DAILY #21 mg 09/19/17 Pack (21 tabs)] Oseltamivir [Tamiflu SUSP] 75 mg PO BID #6 ml 09/19/17 - Allergies Allergies/Adverse Reactions: Allergies Allergy/AdvReac Type Severity Reaction Status Date / Time albuterol Allergy RASH Verified 10/06/15 12:18 aspirin Allergy RASH Verified 10/06/15 12:18 iodine Allergy RASH Verified 10/06/15 12:18 Penicillins Allergy RASH Verified 10/06/15 12:18 ammonia AdvReac VOMITING Verified 11/02/15 13:38 Review of Systems Constitutional: Positive for: Chills, Weakness, Malaise Cardiovascular: Negative for: Chest Pain, Palpitations Respiratory: Positive for: Cough Gastrointestinal: Positive for: Nausea, Vomiting, Abdominal Pain, Diarrhea Genitourinary Female: Negative for: Dysuria, Frequency Musculoskeletal: Positive for: Back Pain. Negative for: Neck Pain, Arm Pain Skin: Negative for: Rash, Lesions, Jaundice Neurological: Positive for: Weakness, Headache, Dizziness. Negative for: Numbness Physical Exam - Reviewed Nursing Documentation Reviewed: Yes Vital Signs Reviewed: Yes - Physical Exam Appears: Positive for: Non-toxic (eldely appearing, dehydrated appearing), No Acute Distress Head Exam: Positive for: ATRAUMATIC, NORMAL INSPECTION, NORMOCEPHALIC Skin: Positive for: Normal Color, Warm, DRY Eye Exam: Positive for: EOMI, Normal appearance, PERRL ENT: Positive for: Normal ENT Inspection Neck: Positive for: Normal, Painless ROM Cardiovascular/Chest: Positive for: Regular Rate, Rhythm Respiratory: Positive for: CNT, Normal Breath Sounds Gastrointestinal/Abdominal: Positive for: Bowel Sounds, Soft, Tenderness (+RUQ tenderness epigastric tenderness), Guarding (upper abd). Negative for: Rebound , Hernia Back: Positive for: Normal Inspection Extremity: Positive for: Normal ROM Neurologic/Psych: Positive for: Alert, Oriented. Negative for: Motor/Sensory Deficits - Laboratory Results Result Diagrams: 09/24/17 12:29 09/24/17 12:29 - ECG O2 Sat by Pulse Oximetry: 100 Medical Decision Making Medical Decision Making: workup for upper abd pain/ vomiting in setting recent influenza Completed course tamiflu? Afebrile here but +tender abdomen labs/CT abd to be obtained ------- labs reveal elev WBC and evidence dehydration w elev BUN IVF initiated, pain medicine morphine 1mg Accession No. : [id number] Patient Name / ID : BURT BARAJAS / [id number] Exam Date : 09/24/2017 13:19:37 ( Approved ) Study Comment : Sex / Age : F / 82Y Creator : Delvin Johnson MD Dictator : Delvin Johnson MD Filing Clerk : Director Equipment : Delvin Johnson MD Approver2 : Report Date : 09/24/2017 13:45:49 My Comment : PROCEDURE: CT Abdomen and Pelvis without intravenous contrast HISTORY: Upper abdominal pain. Relevant medical history: Influenza. COMPARISON: 05/01/2017 abdominal ultrasound 10/16/2016 CT abdomen and pelvis TECHNIQUE: Technique. Contrast Dose: Go Radiation dose: Total exam DLP = mGy-cm. This CT exam was performed using one or more of the following dose reduction techniques: Automated exposure control, adjustment of the mA and/or kV according to patient size, and/or use of iterative reconstruction technique. FINDINGS: LOWER THORAX: Persistent thickening of the distal esophagus associate with small hiatal hernia. Findings may represent mild esophagitis. Similar findings identified on prior CT scan thorax 09/17/2017 LIVER: Unremarkable. No gross lesion or ductal dilatation. GALLBLADDER AND BILE DUCTS: Status post cholecystectomy. No abnormality is seen in the gallbladder fossa. PANCREAS: Unremarkable. No gross lesion or ductal dilatation. SPLEEN: Unremarkable. ADRENALS: Unremarkable. No mass. KIDNEYS AND URETERS: Unremarkable. No hydronephrosis. No solid mass. Incidental finding(s): Left renal 66.3 cm in diameter. Parapelvic cyst right kidney. VASCULATURE: Unremarkable. No aortic aneurysm. BOWEL: Unremarkable. No obstruction. No gross mural thickening. APPENDIX: No abnormalities to suggest acute appendicitis. No right lower quadrant inflammatory processes identified. PERITONEUM: Unremarkable. No free fluid. No free air. LYMPH NODES: Unremarkable. No enlarged lymph nodes. BLADDER: Unremarkable. REPRODUCTIVE: Prior hysterectomy. BONES: No acute fracture. Multilevel degenerative change primarily disc space narrowing and vacuum disc phenomenon. OTHER FINDINGS: None. IMPRESSION: No acute findings related to/accounting for the clinical presentation. Additional benign and/or incidental findings described above. 340p patient remains in pain w nausea Admit Obs Dr Beard covering Dr Casimiro heath covering Dr Robles Case discussed 415pm Disposition - Clinical Impression Clinical Impression: Abdominal pain, Vomiting, Dehydration, Influenza - Patient ED Disposition Is Patient to be Admitted: Yes Counseled Patient/Family Regarding: Studies Performed, Diagnosis - Disposition Disposition Time: 15:40 (0535) Condition: FAIR - Pt Status Changed To: Hospital Disposition Of: Observation - POA Present On Arrival: None
--- NOTE | 2017-09-24 16:40 | CARD ---
APPROVED REPORT EKG Measurement Heart [id number] <Conclusion> Normal sinus rhythm Nonspecific ST and T wave abnormality Abnormal ECG
[2017-09-24] MEDS: Dextrose 5%/Lactated Ringer's 1,000 ML IV SCH (23:00)
[2017-09-25] MEDS: Levothyroxine 125 MCG TAB PO SCH (07:18)
--- NOTE | 2017-09-25 08:04 | CP.PCM.HP ---
History of Present Illness - History of Present Illness History of Present Illness: 82 yr old F presented to ED with complaint of abdominal pain, nausea/vomiting and intolerance to PO diet x 2 days. PMHx includes recent hospital admission for influenza, Asthma, A-fib, Hypothyroidism, Gastritis, GERD, HTN and hyperchoelsterolemia. Denies fevers, chills, chest pain, SOB, weakness or syncope. Denies dysuria or change in stool. PMD: Dr. Robles Specialists: Dr. Ayala- GI; Dr. Salgado-Cardiology; Dr. Ng-pulmonology; Dr. Liao-endocrinology PMHx: Asthma, A-fib, Hypothyroidism, Gastritis, GERD, HTN and hyperchoelsterolemia SurgHx: Appendectomy, cholecystectomy, pacemaker, tonsillectomy FMHx: non-contributory SocHx: denies smoking, Etoh or drugs Medications: see medication reconciliation Allergies: Albuterol-angioedema, ASA-gastritis, iodine-angioedema, penicillin- angioedema, ammonia-angioedema Present on Admission - Present on Admission Any Indicators Present on Admission: No History of DVT/PE: No History of Uncontrolled Diabetes: No Urinary Catheter: No Decubitus Ulcer Present: No History Surgical Site Infection Following: None Review of Systems - Review of Systems All systems: reviewed and no additional remarkable complaints except (for what is mentioned in the HPI) - Constitutional Constitutional: absent: Chills, Weakness - EENT Eyes: absent: Change in Vision Ears: absent: Dizziness Nose/Mouth/Throat: absent: Nasal Congestion, Nasal Discharge - Cardiovascular Cardiovascular: absent: Chest Pain, Dyspnea - Respiratory Respiratory: absent: Hemoptysis - Gastrointestinal Gastrointestinal: Nausea, Vomiting. absent: Change in Stool Character - Genitourinary Genitourinary: absent: Difficulty Urinating, Dysuria - Musculoskeletal Musculoskeletal: absent: Arthralgias - Integumentary Integumentary: absent: Bleeding Lesions - Neurological Neurological: absent: Confusion - Endocrine Endocrine: absent: Polydipsia, Polyphagia, Polyuria - Hematologic/Lymphatic Hematologic: absent: Easy Bleeding, Easy Bruising 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) Hx Transient Ischemic Attacks (TIA): No - HEENT Hx HEENT Problems: Yes Hx Deafness: Yes (wears hearing aid on right) Other/Comment: implants both eyes, loss of hearing bilaterally - RENAL Hx Chronic Kidney Disease: Yes Other/Comment: loss of function 50- 55% right kidney - ENDOCRINE/METABOLIC Hx Endocrine Disorders: Yes Hx Hypothyroidism: Yes - HEMATOLOGICAL/ONCOLOGICAL Hx Blood Disorders: No Hx AIDS: No Hx Cancer: Yes (skin Ca nose) Hx Human Immunodeficiency Virus (HIV): No - INTEGUMENTARY Hx Dermatological Problems: No Hx Basil Cell: Yes (nose) - MUSCULOSKELETAL/RHEUMATOLOGICAL Hx Arthritis: Yes Hx Falls: No Hx Fractures: Yes (right hip/right shoulder) - GASTROINTESTINAL Hx Gastritis: Yes Other/Comment: hernia - GENITOURINARY/GYNECOLOGICAL Hx Genitourinary Disorders: No Hx Incontinence: Yes - PSYCHIATRIC Hx Psychophysiologic Disorder: No Hx Substance Use: No - SURGICAL HISTORY Hx Appendectomy: Yes Hx Cholecystectomy: Yes Hx Eye Surgery: Yes (cataract surgery with implant) Hx Tonsillectomy: Yes Other/Comment: pacemaker, right hip pinning, foot surgery and left knee repair - ANESTHESIA Hx Anesthesia: Yes Hx Anesthesia Reactions: Yes Hx Malignant Hyperthermia: No Has any member of the family had a problem w/ anesthesia?: No Meds Allergies/Adverse Reactions: Allergies Allergy/AdvReac Type Severity Reaction Status Date / Time albuterol Allergy RASH Verified 10/06/15 12:18 aspirin Allergy RASH Verified 10/06/15 12:18 iodine Allergy RASH Verified 10/06/15 12:18 Penicillins Allergy RASH Verified 10/06/15 12:18 ammonia AdvReac VOMITING Verified 11/02/15 13:38 Physical Exam - Constitutional Appears: No Acute Distress - Head Exam Head Exam: ATRAUMATIC, NORMOCEPHALIC - Eye Exam Eye Exam: EOMI - ENT Exam ENT Exam: Mucous Membranes Dry - Neck Exam Neck exam: Positive for: Full Rom - Respiratory Exam Respiratory Exam: Decreased Breath Sounds, NORMAL BREATHING PATTERN - Cardiovascular Exam Cardiovascular Exam: REGULAR RHYTHM, +S1, +S2 - GI/Abdominal Exam GI & Abdominal Exam: Normal Bowel Sounds, Soft. absent: Tenderness - Extremities Exam Extremities exam: Positive for: full ROM. Negative for: pedal edema - Neurological Exam Neurological exam: Alert, CN II-XII Intact, Oriented x3 - Psychiatric Exam Psychiatric exam: Normal Affect, Normal Mood - Skin Skin Exam: Dry, Intact, Warm Results - Vital Signs Recent Vital Signs: Last Vital Signs Temp 97.6 F 09/24/17 23:40 Pulse 64 09/24/17 23:40 Resp 18 09/24/17 23:40 BP 123/77 09/24/17 23:40 Pulse Ox 96 09/24/17 23:40 - Labs Result Diagrams: 09/25/17 09:07 09/25/17 09:07 Labs: Laboratory Results - last 24 hr 09/24/17 09/24/17 09/24/17 12:24 12:29 12:29 WBC 14.9 H D RBC 4.84 Hgb 14.9 D Hct 43.4 MCV 89.6 MCH 30.7 MCHC 34.3 RDW 13.2 Plt Count 214 MPV 9.5 Neut % (Auto) 74.8 Lymph % (Auto) 14.6 L [place] % (Auto) 9.2 Eos % (Auto) 0.4 Baso % (Auto) 1.0 Neut # 11.1 H Lymph # 2.2 [place] # 1.4 H Eos # 0.1 Baso # 0.1 Sodium 142 Potassium 3.6 Chloride 104 Carbon Dioxide 26 Anion Gap 16 BUN 29 H Creatinine 1.0 Est GFR ( Amer) > 60 Est GFR (Non-Af Amer) 53 POC Glucose (mg/dL) 132 H Random Glucose 136 H Calcium 9.2 Total Bilirubin 0.9 AST 27 ALT 56 H D Alkaline Phosphatase 79 Total Protein 6.5 Albumin 3.3 L Globulin 3.2 Albumin/Globulin Ratio 1.1 Lipase 323 H Urine Color Urine Clarity Urine pH Ur Specific [place] Urine Protein Urine Glucose (UA) Urine Ketones Urine Blood Urine Nitrate Urine Bilirubin Urine Urobilinogen Ur Leukocyte Esterase Urine RBC (Auto) Urine Microscopic WBC Ur Squamous Epith Cells Hyaline Casts 09/24/17 13:57 WBC RBC Hgb Hct MCV MCH MCHC RDW Plt Count MPV Neut % (Auto) Lymph % (Auto) [place] % (Auto) Eos % (Auto) Baso % (Auto) Neut # Lymph # [place] # Eos # Baso # Sodium Potassium Chloride Carbon Dioxide Anion Gap BUN Creatinine Est GFR ( Amer) Est GFR (Non-Af Amer) POC Glucose (mg/dL) Random Glucose Calcium Total Bilirubin AST ALT Alkaline Phosphatase Total Protein Albumin Globulin Albumin/Globulin Ratio Lipase Urine Color Yellow Urine Clarity Slighty-cloudy Urine pH 6.0 Ur Specific [place] 1.011 Urine Protein Negative Urine Glucose (UA) Neg Urine Ketones Negative Urine Blood Negative Urine Nitrate Negative Urine Bilirubin Negative Urine Urobilinogen 0.2-1.0 Ur Leukocyte Esterase Neg Urine RBC (Auto) 1 Urine Microscopic WBC 1 Ur Squamous Epith Cells < 1 Hyaline Casts 3-5 H Assessment & Plan - Assessment and Plan (Free Text) Assessment: 82 yr old F presented to ED with complaint of abdominal pain, nausea/vomiting and intolerance to PO diet x 2 days. -Admit to med surg -NPO since yesterday, will advance to liquid diet this AM-if tolerated advance to regular diet for lunch -leukocytosis has resolved -pantoprazole, zofran, IVF, pain management - Date & Time Date: 09/25/17 Time: 08:10
[2017-09-25] MEDS: Dextrose 5%/Lactated Ringer's 1,000 ML IV SCH (09:00)
[2017-09-25 09:18] LABS: BASO # 0.1 K/uL (0.0-0.2); EOS # 0.1 K/uL (0.0-0.7); EOS % 1.2 % (0.0-4.0); HEMOGLOBIN 13.8 g/dL (12.0-16.0); LYMPH # 2.9 K/uL (1.0-4.3); LYMPH % 36.1 % (20.0-40.0); MEAN CELL VOLUME 89.8 fl (81.0-99.0); MEAN CORPUSCULAR HEMOGLOBIN 30.4 pg (27.0-31.0); MEAN CORPUSCULAR HGB CONC 33.8 g/dL (33.0-37.0); MEAN PLATELET VOLUME 9.6 fl (7.2-11.7); MONO # 0.8 K/uL (0.0-0.8); MONO % 9.7 % (0.0-10.0); NEUT # 4.2 K/uL (1.8-7.0); NRBC % 0.1 % (0.0-0.0); RBC 4.55 Mil/uL (3.80-5.20); RED CELL DISTRIBUTION WIDTH 13.2 % (11.5-14.5); WHITE BLOOD COUNT 8.1 K/uL (4.8-10.8)
[2017-09-25 09:44] LABS: ALBUMIN 2.9 g/dL (3.5-5.0); ALT/SGPT 50 U/L (9-52); AST/SGOT 26 U/L (14-36); BLOOD UREA NITROGEN 16 mg/dl (7-17); CALCIUM 8.4 mg/dL (8.4-10.2); GFR AFRICAN-AMERICAN > 60; GFR NON-AFRICAN AMERICAN > 60
[2017-09-25] MEDS ORDERED: Potassium Chloride 20 mEq ER Tab PO ONE (10:15)
[2017-09-25] MEDS: Fluticasone-Salmeterol 250-50mcg Diskus INH SCH ×2 (11:04→21:42)
[2017-09-25] MEDS: Lactated Ringer's 1,000 ML IV SCH ×2 (13:40→23:56)
[2017-09-26] MEDS: Levothyroxine 125 MCG TAB PO SCH (06:25)
[2017-09-26 06:31] LABS: BLOOD UREA NITROGEN 18 mg/dl (7-17); CALCIUM 8.5 mg/dL (8.4-10.2); GFR AFRICAN-AMERICAN > 60; GFR NON-AFRICAN AMERICAN > 60
[2017-09-26 08:43] VITALS: BP 120/70; PULSE 67; RESP 18; TEMP 98.6; O2SAT 98
--- NOTE | 2017-09-26 08:52 | PQF GENQUE ---
This form is a permanent part of the medical record 09/26/17 Dr. Beard, Would you please clarify if there is an associated diagnosis or not to go along with the following findings. Admitted with abdominal pain, nausea, vomiting and intolerance to po diet x 2 days. + mucous membranes and skin dry. BUN 29-> 18, GFR >60. Treatment includes IVF. Clarification of your documentation is requested to better reflect the severity of illness and intensity of treatment of your patient. Indicators present [] Specify: [] [] Specify: [] [] Specify: [] [] Specify: [] Location in the medical record that reflects the above clinical findings: [] Treatment Provided: [] PHYSICIAN'S RESPONSE Based on your medical judgment of the clinical indicators outlined above please clarify the following: [] Practitioner response [] If unable to determine, please check the box, sign and date. Present On Admission (POA) Indicator: [] Present at the time of admission [] Not present at the time of admission [] Clinically Undetermined In responding to this query, please exercise your independent professional judgment. The fact that a question is asked does not imply that any particular answer is desired or expected. Thank you for your clarification on this documentation. If you have any questions please call:[phone] * Thank you, Rupal Valero RN CDMP [facility]
[2017-09-26] MEDS: Fluticasone-Salmeterol 250-50mcg Diskus INH SCH (08:59)
[2017-09-26] MEDS: Lactated Ringer's 1,000 ML IV SCH (09:00)
--- NOTE | 2017-09-26 10:16 | CP.PCM.CON ---
History of Present Illness - History of Present Illness History of Present Illness: THE PATIENT IS AN 82 YEAR OLD FEMALE KNOWN TO ME FROM PRIOR [facility] ADMISSIONS AND MY OFFICE PRACTICE. SHE HAS A HISTORY OF HYPERTENSION, COPD, SSS WITH A PERMANENT PACEMAKER, HYPERLIPIDEMIA, GASTRITIS, VASOVAGAL SYNCOPE HISTORY WITH PRIOR SYNCOPE AND NEAR-SYNCOPE EPISODES FOLLOWING A BM OR FOLLOWING VOMITING AND SHE ALSO HAS HYPOTHYROIDISM. SHE HAD A TILT TABLE TEST A FEW YEARS AGO THAT SHOWED THE NEED FOR A PACEMAKER AND IT WAS INSERTED. SHE WAS ADMITTED LAST WEEK TO [facility] FOR INFLUENZA. SHE NOW WAS ADMITTED FOR ABDOMINAL PAIN WITH NAUSEA AND VOMITING AND INTOLERANCE TO ORAL INTAKE. CARDIOLOGY WAS CALLED TO SEE HER FOLLOWING A NEAR-SYNCOPE EPISODE YESTERDAY AFTER VOMITING AND HAVING A BM. SHE STATES SHE WAS WEAK BUT DID NOT BLACK OUT AND FELT BETTER IN A SHORT TIME. SHE DENIES CHEST PAIN, PALPITATIONS OR SOB DURING THE EPISODE. HER BP WAS 94/50 YESTERDAY AFTERNOON AND WAS 120/70 THIS AM. 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) Hx Transient Ischemic Attacks (TIA): No - HEENT Hx HEENT Problems: Yes Hx Deafness: Yes (wears hearing aid on right) Other/Comment: implants both eyes, loss of hearing bilaterally - RENAL Hx Chronic Kidney Disease: Yes Other/Comment: loss of function 50- 55% right kidney - ENDOCRINE/METABOLIC Hx Endocrine Disorders: Yes Hx Hypothyroidism: Yes - HEMATOLOGICAL/ONCOLOGICAL Hx Blood Disorders: No Hx AIDS: No Hx Cancer: Yes (skin Ca nose) Hx Human Immunodeficiency Virus (HIV): No - INTEGUMENTARY Hx Dermatological Problems: No Hx Basil Cell: Yes (nose) - MUSCULOSKELETAL/RHEUMATOLOGICAL Hx Arthritis: Yes Hx Falls: No Hx Fractures: Yes (right hip/right shoulder) - GASTROINTESTINAL Hx Gastritis: Yes Other/Comment: hernia - GENITOURINARY/GYNECOLOGICAL Hx Genitourinary Disorders: No Hx Incontinence: Yes - PSYCHIATRIC Hx Psychophysiologic Disorder: No Hx Substance Use: No - SURGICAL HISTORY Hx Appendectomy: Yes Hx Cholecystectomy: Yes Hx Eye Surgery: Yes (cataract surgery with implant) Hx Tonsillectomy: Yes Other/Comment: pacemaker, right hip pinning, foot surgery and left knee repair - ANESTHESIA Hx Anesthesia: Yes Hx Anesthesia Reactions: Yes Hx Malignant Hyperthermia: No Has any member of the family had a problem w/ anesthesia?: No Meds Allergies/Adverse Reactions: Allergies Allergy/AdvReac Type Severity Reaction Status Date / Time albuterol Allergy RASH Verified 10/06/15 12:18 aspirin Allergy RASH Verified 10/06/15 12:18 iodine Allergy RASH Verified 10/06/15 12:18 Penicillins Allergy RASH Verified 10/06/15 12:18 ammonia AdvReac VOMITING Verified 11/02/15 13:38 - Medications Medications: Current Medications Acetaminophen (Tylenol 325mg Tab) 650 mg PO Q6 PRN PRN Reason: Fever >100.4 F Amlodipine Besylate (Norvasc) 10 mg PO DAILY [facility] Last Admin: 09/26/17 09:00 Dose: 10 mg Lactated Ringer's (Lactated Ringer's) 1,000 mls @ 100 mls/hr IV .Q10H [facility] Last Admin: 09/26/17 09:00 Dose: 100 mls/hr Levothyroxine Sodium (Synthroid) 125 mcg PO DAILY@0630 [facility] Last Admin: 09/26/17 06:25 Dose: 125 mcg Ondansetron HCl (Zofran Inj) 4 mg IVP Q4 PRN PRN Reason: Nausea/Vomiting Last Admin: 09/25/17 11:38 Dose: 4 mg Pantoprazole Sodium (Protonix Inj) 40 mg IVP DAILY [facility] Last Admin: 09/26/17 09:00 Dose: 40 mg Fluticasone/Salmeterol (Advair Diskus 250/50) 1 puff INH Q12H [facility] Last Admin: 09/26/17 08:59 Dose: 1 puff Physical Exam - Respiratory Exam Respiratory Exam: Clear to Auscultation Bilateral - Cardiovascular Exam Cardiovascular Exam: REGULAR RHYTHM, +S1, +S2 - Extremities Exam Additional comments: NO SIGNIFICANT LE EDEMA - Additional Findings Additional findings: EKG 09/24/16 SHOWED NSR, NON-SPECIFIC ST-T CHANGES K+ 3.1 YESTERDAY K+ 3.9 TODAY GLUCOSE LEVELS WERE NOT LOW WBC 14.9 09/24/16 WBC 8.1 TODAY BP 94/50 YESTERDAY BP 120/70 THIS AM EKG TODAY WITH SINUS RHYTHM, NO ACUTE CHANGES Results - Vital Signs Recent Vital Signs: Last Vital Signs Temp 98.6 F 09/26/17 08:43 Pulse 67 09/26/17 08:43 Resp 18 09/26/17 08:43 BP 120/70 09/26/17 08:43 Pulse Ox 98 09/26/17 08:43 - Labs Result Diagrams: 09/25/17 09:07 09/26/17 05:25 Labs: Laboratory Results - last 24 hr 09/25/17 09/26/17 11:49 05:25 Sodium 142 Potassium 3.9 Chloride 106 Carbon Dioxide 29 Anion Gap 11 BUN 18 H Creatinine 0.9 Est GFR ( Amer) > 60 Est GFR (Non-Af Amer) > 60 POC Glucose (mg/dL) 94 Random Glucose 81 Calcium 8.5 Assessment & Plan - Assessment and Plan (Free Text) Assessment: THE PATIENT APPEARS TO HAVE HAD A VASOVAGAL NEAR-SYNCOPE EPISODE YESTERDAY FOLLOWING A BM AND VOMITING-SHE WAS STABLE SHORTLY AFTER AND IS STABLE NOW SSS WITH PERMANENT PACEMAKER HYPERTENSION HISTORY HYPERLIPIDEMIA COPD Plan: CONTINUE IV FLUIDS, ADVAIR AND ZOFRAN PRN HOLD AMLODIPINE UNTIL CURRENT EPISODE OF VOMITING HAS RESOLVED NO FURTHER CARDIAC WORK-UP IS NEEDED AT THIS TIME
--- NOTE | 2017-09-26 14:54 | CP.PCM.DIS ---
Provider - Provider Date of Admission: 09/25/17 14:39 Attending physician: Kwan Beard MD Primary care physician: Dr. Robles Consults: Dr. Salgado-cardiology Time Spent in preparation of Discharge (in minutes): 30 Diagnosis - Discharge Diagnosis (1) Abdominal pain Status: Resolved Priority: Low (2) Dehydration Status: Resolved Priority: Low Hospital Course - Lab Results Lab Results: Most Recent Lab Values WBC 8.1 K/uL (4.8-10.8) 09/25/17 09:07 RBC 4.55 Mil/uL (3.80-5.20) 09/25/17 09:07 Hgb 13.8 g/dL (12.0-16.0) 09/25/17 09:07 Hct 40.9 % (34.0-47.0) 09/25/17 09:07 MCV 89.8 fl (81.0-99.0) 09/25/17 09:07 MCH 30.4 pg (27.0-31.0) 09/25/17 09:07 MCHC 33.8 g/dL (33.0-37.0) 09/25/17 09:07 RDW 13.2 % (11.5-14.5) 09/25/17 09:07 Plt Count 189 K/uL (130-400) 09/25/17 09:07 MPV 9.6 fl (7.2-11.7) 09/25/17 09:07 Neut % (Auto) 52.0 % (50.0-75.0) 09/25/17 09:07 Lymph % (Auto) 36.1 % (20.0-40.0) 09/25/17 09:07 [place] % (Auto) 9.7 % (0.0-10.0) 09/25/17 09:07 Eos % (Auto) 1.2 % (0.0-4.0) 09/25/17 09:07 Baso % (Auto) 1.0 % (0.0-2.0) 09/25/17 09:07 Neut # 4.2 K/uL (1.8-7.0) 09/25/17 09:07 Lymph # 2.9 K/uL (1.0-4.3) 09/25/17 09:07 [place] # 0.8 K/uL (0.0-0.8) 09/25/17 09:07 Eos # 0.1 K/uL (0.0-0.7) 09/25/17 09:07 Baso # 0.1 K/uL (0.0-0.2) 09/25/17 09:07 Sodium 142 mmol/l (132-148) 09/26/17 05:25 Potassium 3.9 MMOL/L (3.6-5.0) 09/26/17 05:25 Chloride 106 mmol/L (98-107) 09/26/17 05:25 Carbon Dioxide 29 mmol/L (22-30) 09/26/17 05:25 Anion Gap 11 (10-20) 09/26/17 05:25 BUN 18 mg/dl (7-17) H 09/26/17 05:25 Creatinine 0.9 mg/dl (0.7-1.2) 09/26/17 05:25 Est GFR ( Amer) > 60 09/26/17 05:25 Est GFR (Non-Af Amer) > 60 09/26/17 05:25 POC Glucose (mg/dL) 94 mg/dL (65-110) 09/25/17 11:49 Random Glucose 81 mg/dL (65-105) 09/26/17 05:25 Calcium 8.5 mg/dL (8.4-10.2) 09/26/17 05:25 Total Bilirubin 1.2 mg/dl (0.2-1.3) 09/25/17 09:07 AST 26 U/L (14-36) 09/25/17 09:07 ALT 50 U/L (9-52) 09/25/17 09:07 Alkaline Phosphatase 58 U/L (38-126) 09/25/17 09:07 Total Protein 5.8 G/DL (6.3-8.2) L 09/25/17 09:07 Albumin 2.9 g/dL (3.5-5.0) L 09/25/17 09:07 Globulin 2.9 gm/dL (2.2-3.9) 09/25/17 09:07 Albumin/Globulin Ratio 1.0 (1.0-2.1) 09/25/17 09:07 Lipase 323 U/L (23-300) H 09/24/17 12:29 Urine Color Yellow (YELLOW) 09/24/17 13:57 Urine Clarity Slighty-cloudy (Clear) 09/24/17 13:57 Urine pH 6.0 (5.0-8.0) 09/24/17 13:57 Ur Specific [place] 1.011 (1.003-1.030) 09/24/17 13:57 Urine Protein Negative mg/dL (NEGATIVE) 09/24/17 13:57 Urine Glucose (UA) Neg mg/dL (Normal) 09/24/17 13:57 Urine Ketones Negative mg/dL (NEGATIVE) 09/24/17 13:57 Urine Blood Negative (NEGATIVE) 09/24/17 13:57 Urine Nitrate Negative (NEGATIVE) 09/24/17 13:57 Urine Bilirubin Negative (NEGATIVE) 09/24/17 13:57 Urine Urobilinogen 0.2-1.0 mg/dL (0.2-1.0) 09/24/17 13:57 Ur Leukocyte Esterase Neg Reshma/uL (Negative) 09/24/17 13:57 Urine RBC (Auto) 1 /hpf (0-3) 09/24/17 13:57 Urine Microscopic WBC 1 /hpf (0-5) 09/24/17 13:57 Ur Squamous Epith Cells < 1 /hpf (0-5) 09/24/17 13:57 Hyaline Casts 3-5 /hpf (0-2) H 09/24/17 13:57 - Hospital Course Hospital Course: 82 yr old F admitted for abdominal pain, nausea/vomiting and intolerance to PO diet. Patient improved and tolerated PO diet s/p treatment with NPO, pantoprazole IV, zofran IV, IVF and pain management. Leukocytosis has resolved. Patient had one episode of red blood on tissue paper when wiping after bowel movement which resolved on its own, patient was instructed to follow up with GI as outpatient as labs and vitals remained stable and patient was asymptomatic. Patient was medically stable for discharge with instructions to follow up with Dr. Robles in 1 week, Dr. Ayala-GI in 1 week, Dr. Salgado within 1 week. - Date & Time of H&P Date of H&P: 09/25/17 Time of H&P: 08:03 Discharge Exam - Head Exam Head Exam: ATRAUMATIC, NORMOCEPHALIC - Eye Exam Eye Exam: EOMI - ENT Exam ENT Exam: Mucous Membranes Moist - Neck Exam Neck exam: Full Rom - Respiratory Exam Respiratory Exam: Clear to PA & Lateral, NORMAL BREATHING PATTERN - Cardiovascular Exam Cardiovascular Exam: REGULAR RHYTHM, +S1, +S2 - GI/Abdominal Exam GI & Abdominal Exam: Normal Bowel Sounds, Soft. absent: Tenderness - Neurological Exam Neurological exam: Alert, CN II-XII Intact, Oriented x3 - Psychiatric Exam Psychiatric exam: Normal Affect, Normal Mood - Skin Skin Exam: Dry, Warm Discharge Plan - Follow Up Plan Condition: FAIR Disposition: HOME/ ROUTINE Instructions: Dehydration (DC), Acute Abdominal Pain (DC) Additional Instructions: follow up with cardiology pmd and gi doctor in 1 week Referrals: Dl Salgado MD [Staff Provider] - David Robles MD [Medical Doctor] - Clinical Quality Measures - Date & Time of Discharge Summary Date of Discharge Summary: 09/26/17 Time of Discharge Summary: 14:52
--- NOTE | 2017-09-26 16:15 | CARD ---
APPROVED REPORT EKG Measurement Heart [id number] <Conclusion> Normal sinus rhythm with sinus arrhythmia Moderate voltage criteria for LVH, may be normal variant Borderline ECG
== END 2017-09-26 13:52 | disposition home or self-care (01) | DRG 641 ==
LOC: H.ER 11:46 → H.ERHOLD 16:14 → H.MEDSURG1 18:05 → OBSVTOIN 09-25 14:39
PROVIDERS: ADMIT Family Medicine; ATTEND Family Medicine
DX: E86.0 Dehydration (principal); I48.91 Unspecified atrial fibrillation; R56.9 Unspecified convulsions; D72.829 Elevated white blood cell count, unspecified; E03.9 Hypothyroidism, unspecified; E78.00 Pure hypercholesterolemia, unspecified; R55 Syncope and collapse; J44.9 Chronic obstructive pulmonary disease, unspecified; H91.90 Unspecified hearing loss, unspecified ear; I12.9 Hypertensive chronic kidney disease with stage 1 through stage 4 chronic kidney disease, or unspecified chronic kidney disease; K21.9 Gastro-esophageal reflux disease without esophagitis; N18.9 Chronic kidney disease, unspecified; Z79.899 Other long term (current) drug therapy; Z90.49 Acquired absence of other specified parts of digestive tract; Z95.0 Presence of cardiac pacemaker; Z97.4 Presence of external hearing-aid; K29.70 Gastritis, unspecified, without bleeding; M19.90 Unspecified osteoarthritis, unspecified site; R32 Unspecified urinary incontinence; R10.10 Upper abdominal pain, unspecified; R11.2 Nausea with vomiting, unspecified; E78.5 Hyperlipidemia, unspecified

== ENCOUNTER 2017-10-16 08:25 | Emergency (ER) | payer MEDICARE, OTHER ==
[2017-10-16 08:25] VITALS: BMI 27.4
[2017-10-16 08:31] VITALS: RESP 16; O2SAT 97
[2017-10-16] MEDS ORDERED: DiphenhydrAMINE 50 mg/ml Inj IVP STA (09:51)
--- NOTE | 2017-10-16 10:19 | ED PDOC ---
HPI: Allergic Reaction Time Seen by Provider: 10/16/17 09:17 Chief Complaint (Nursing): Allergic Reaction Chief Complaint (Provider): Allergic Reaction History Per: Patient History/Exam Limitations: no limitations Onset/Duration Of Symptoms: Days (x1 month) Current Symptoms Are (Timing): Still Present Additional Complaint(s): 82 year old female with a past medical history of anaphylaxis, who presents to the ED complaining of an allergic reaction to Albuterol. Patient states she was admitted for flu at the beginning of September. 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 States since the treatment she's had swelling of her lips and redness to her face along with diffuse pruritis. Patient says she was admitted again in the middle of September due to vomiting. Reports taking Methylprednisolone. Patient states she contacted Dr. Robles today who advised she take Benadryl. Patient says she is presenting to the ED for further evaluation, because she could not been seen by Dr. Robles. Denies throat swelling. PMD: Dr. 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) Denies: Alzheimer's Disease, CHF, Dementia, HIV, Pneumonia, Pulmonary Embolism, Sleep Apnea, TIA - Surgical History Surgical History: Appendectomy, Cholecystectomy, Pacemaker, Tonsillectomy - Family History Family History: States: Unknown Family Hx - Home Medications Home Medications: Ambulatory Orders Medication Instructions Recorded Fluticasone/Salmeterol 250/50 1 puff INH Q12H 11/08/15 [Advair Diskus 250/50] amLODIPine [Norvasc] 10 mg PO DAILY 02/17/16 Esomeprazole Magnesium [Nexium] 40 mg PO DAILY 07/25/16 Levothyroxine [Synthroid] 125 mcg PO DAILY@0630 #30 tab 09/19/17 DiphenhydrAMINE [Benadryl] 1 - 2 cap PO Q6 PRN #30 cap 10/16/17 - Allergies Allergies/Adverse Reactions: Allergies Allergy/AdvReac Type Severity Reaction Status Date / Time albuterol Allergy RASH Verified 10/06/15 12:18 aspirin Allergy RASH Verified 10/06/15 12:18 iodine Allergy RASH Verified 10/06/15 12:18 Penicillins Allergy RASH Verified 10/06/15 12:18 ammonia AdvReac VOMITING Verified 11/02/15 13:38 Review of Systems ROS Statement: Except As Marked, All Systems Reviewed And Found Negative ENT: Negative for: Throat Swelling Skin: Positive for: Rash (pruritis), Other (facial erythema) Physical Exam - Reviewed Nursing Documentation Reviewed: Yes Vital Signs Reviewed: Yes - Physical Exam Appears: Positive for: Non-toxic, No Acute Distress Head Exam: Positive for: ATRAUMATIC, NORMAL INSPECTION, NORMOCEPHALIC Skin: Positive for: Normal Color, Warm, Dry Eye Exam: Positive for: EOMI, Normal appearance, PERRL ENT: Positive for: Normal ENT Inspection, Other (diffuse erythema to the face, no swelling to lips, patient actively scratching herself) Cardiovascular/Chest: Positive for: Regular Rate, Rhythm. Negative for: Murmur Respiratory: Positive for: Normal Breath Sounds. Negative for: Respiratory Distress Neurologic/Psych: Positive for: Alert, Oriented (x3). Negative for: Aphasia, Facial Droop - Laboratory Results Result Diagrams: 10/16/17 10:37 10/16/17 10:37 - ECG O2 Sat by Pulse Oximetry: 97 (RA) Pulse Ox Interpretation: Normal - Progress ED Course And Treament: On re-evaluation, pt reports feeling much better. Rash has improved. Case d/w Dr. Robles, PMD, who agrees with care and states she will see patient in her office this week. Disposition - Clinical Impression Clinical Impression: Allergic reaction - Patient ED Disposition Is Patient to be Admitted: No - Disposition Referrals: David Robles MD [Family Provider] - Disposition: Routine/Home Disposition Time: 11:52 Condition: IMPROVED Prescriptions: DiphenhydrAMINE [Benadryl] 1 - 2 cap PO Q6 PRN #30 cap PRN Reason: Itching / Pruritus Instructions: General Allergic Reaction (ED) Forms: [employer] ([employer]wana) Print Language: URDU Medical Decision Making Medical Decision Making: Time: 09:51 Initial Plan: --CMP --CBC w/ differential --Benadryl 50 mg IVP --Pepcid 20 mg IVP --IV Insertion --Reevaluation Scribe Attestation: Documented by Reinaldo Whitman, acting as a scribe for Sanket Birch PA-C. Provider Scribe Attestation: All medical record entries made by the Scribe were at my direction and personally dictated by me. I have reviewed the chart and agree that the record accurately reflects my personal performance of the history, physical exam, medical decision making, and the department course for this patient. I have also personally directed, reviewed, and agree with the discharge instructions and disposition.
[2017-10-16] MEDS ORDERED: DiphenhydrAMINE 50 mg/ml Inj ONE (10:28)
[2017-10-16 10:53] LABS: BASO % 0.2 % (0.0-2.0); EOS % 0.2 % (0.0-4.0); HEMOGLOBIN 13.6 g/dL (12.0-16.0); LYMPH # 2.3 K/uL (1.0-4.3); LYMPH % 24.8 % (20.0-40.0); MEAN CELL VOLUME 89.1 fl (81.0-99.0); MEAN CORPUSCULAR HEMOGLOBIN 30.3 pg (27.0-31.0); MONO % 11.2 % (0.0-10.0); NEUT # 5.9 K/uL (1.8-7.0); NEUT % 63.6 % (50.0-75.0); NRBC % 0.1 % (0.0-0.0); RBC 4.49 Mil/uL (3.80-5.20); RED CELL DISTRIBUTION WIDTH 14.6 % (11.5-14.5); WHITE BLOOD COUNT 9.3 K/uL (4.8-10.8)
[2017-10-16 11:25] LABS: ALBUMIN 3.5 g/dL (3.5-5.0); ALT/SGPT 28 U/L (9-52); AST/SGOT 42 U/L (14-36); BLOOD UREA NITROGEN 19 mg/dl (7-17); CALCIUM 8.5 mg/dL (8.4-10.2); GFR AFRICAN-AMERICAN > 60; GFR NON-AFRICAN AMERICAN > 60
[2017-10-16 12:11] VITALS: BP 130/79; PULSE 77; TEMP 97
== END 2017-10-16 12:11 | disposition home or self-care (01) ==
LOC: H.ER 08:25
DX: T78.40XA Allergy, unspecified, initial encounter (principal); E03.9 Hypothyroidism, unspecified; E78.00 Pure hypercholesterolemia, unspecified; I48.91 Unspecified atrial fibrillation; J44.9 Chronic obstructive pulmonary disease, unspecified; I12.9 Hypertensive chronic kidney disease with stage 1 through stage 4 chronic kidney disease, or unspecified chronic kidney disease; N18.9 Chronic kidney disease, unspecified
CPT/HCPCS: 80053; 85025; 96374; 96375; 99283; J1200

== ENCOUNTER 2017-10-26 22:47 | Observation (INO) | payer MEDICARE, OTHER ==
[2017-10-26 22:48] VITALS: BMI 27.4
[2017-10-26] MEDS ORDERED: Ipratropium 0.02% Inhal Soln (0.5 mg/2.5 ml) UD IH STA (23:25)
[2017-10-26] MEDS ORDERED: Ipratropium 0.02% Inhal Soln (0.5 mg/2.5 ml) UD IH ONE (23:43)
[2017-10-27 00:12] LABS: BASO % 0.4 % (0.0-2.0); EOS # 0.1 K/uL (0.0-0.7); EOS % 0.9 % (0.0-4.0); HEMOGLOBIN 11.8 g/dL (12.0-16.0); LYMPH # 2.3 K/uL (1.0-4.3); LYMPH % 22.9 % (20.0-40.0); MEAN CORPUSCULAR HEMOGLOBIN 30.6 pg (27.0-31.0); MEAN PLATELET VOLUME 10.1 fl (7.2-11.7); MONO # 1.2 K/uL (0.0-0.8); MONO % 11.9 % (0.0-10.0); NEUT # 6.3 K/uL (1.8-7.0); NEUT % 63.9 % (50.0-75.0); NRBC % 0.1 % (0.0-0.0); RBC 3.85 Mil/uL (3.80-5.20); RED CELL DISTRIBUTION WIDTH 14.7 % (11.5-14.5); WHITE BLOOD COUNT 9.9 K/uL (4.8-10.8)
[2017-10-27 00:24] LABS: ALBUMIN 3.2 g/dL (3.5-5.0); ALT/SGPT 29 U/L (9-52); AST/SGOT 20 U/L (14-36); BLOOD UREA NITROGEN 19 mg/dl (7-17); CALCIUM 8.4 mg/dL (8.4-10.2); GFR AFRICAN-AMERICAN > 60; GFR NON-AFRICAN AMERICAN > 60
[2017-10-27 00:36] LABS: B-TYPE NATRIURETIC PEPTIDE 215 pg/ml (0-900)
--- NOTE | 2017-10-27 00:45 | ED PDOC ---
HPI: SOB/CHF/COPD Time Seen by Provider: 10/26/17 23:16 Chief Complaint (Nursing): Shortness Of Breath Chief Complaint (Provider): Shortness Of Breath History Per: Patient History/Exam Limitations: no limitations Additional Complaint(s): 82 y/o female with past medical history of asthma presents to the ED complaining of shortness of breath with sensed chest tightness and dry cough x 1 day. She is also complaining of right sided neck and back pain. Reports that she saw her PMD yesterday for similar symptoms and was started on antibiotics. States using her Advair Diskus with no relief. Denies nausea, vomiting, fever or any further medical complaints. 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) Denies: Alzheimer's Disease, CHF, Dementia, HIV, Pneumonia, Pulmonary Embolism, Sleep Apnea, TIA - Surgical History Surgical History: Appendectomy, Cholecystectomy, Pacemaker, Tonsillectomy - Family History Family History: States: Unknown Family Hx - Social History Current smoker - smoking cessation education provided: No Alcohol: None Drugs: Denies - Home Medications Home Medications: Ambulatory Orders Medication Instructions Recorded Fluticasone/Salmeterol 250/50 1 puff INH Q12H 11/08/15 [Advair Diskus 250/50] amLODIPine [Norvasc] 10 mg PO DAILY 02/17/16 Esomeprazole Magnesium [Nexium] 40 mg PO DAILY 07/25/16 Levothyroxine [Synthroid] 1.37 mcg PO DAILY@0630 10/27/17 - Allergies Allergies/Adverse Reactions: Allergies Allergy/AdvReac Type Severity Reaction Status Date / Time albuterol Allergy RASH Verified 10/06/15 12:18 aspirin Allergy RASH Verified 10/06/15 12:18 iodine Allergy RASH Verified 10/06/15 12:18 Penicillins Allergy RASH Verified 10/06/15 12:18 ammonia AdvReac VOMITING Verified 11/02/15 13:38 Review of Systems ROS Statement: Except As Marked, All Systems Reviewed And Found Negative (As per HPI, otherwise negative) Cardiovascular: Positive for: Chest Pain (Chest tightness) Respiratory: Positive for: Cough, Shortness of Breath Musculoskeletal: Positive for: Neck Pain (Right sided), Back Pain Physical Exam - Reviewed Nursing Documentation Reviewed: Yes Vital Signs Reviewed: Yes - Physical Exam Appears: Positive for: Non-toxic, No Acute Distress Head Exam: Positive for: ATRAUMATIC, NORMAL INSPECTION, NORMOCEPHALIC Skin: Positive for: Normal Color, Warm, Dry Eye Exam: Positive for: EOMI, Normal appearance, PERRL ENT: Positive for: Normal ENT Inspection Neck: Positive for: Normal, Painless ROM, Supple Cardiovascular/Chest: Positive for: Regular Rate, Rhythm. Negative for: Murmur Respiratory: Positive for: Decreased Breath Sounds, Respiratory Distress (Mild respiratory distress) Gastrointestinal/Abdominal: Positive for: Normal Exam, Bowel Sounds, Soft. Negative for: Tenderness Back: Positive for: Normal Inspection Extremity: Positive for: Normal ROM. Negative for: Deformity Neurologic/Psych: Positive for: Alert, Oriented (x3) - Laboratory Results Result Diagrams: 10/26/17 23:59 10/26/17 23:59 - ECG O2 Sat by Pulse Oximetry: 96 (RA) Pulse Ox Interpretation: Normal Medical Decision Making Medical Decision Making: Time: 23:24 Initial Impression: 82 y/o female with respiratory distress Plan: EKG BNP CMP Lactic Acid Troponin I CBC w/differential Chest x-ray Ipratropium 0.02% 0.5mg IH Blood culture Heplock Insertion Peak flow pre/post Tx Influenza A B Time: 01:50 --Chest x-ray reviewed and right lower lobe pneumonia noted --labs show no clinically significant abnormality --Patient reports persistent symptoms --Case was discussed with Dr. Robles who asked patient to be placed in observation --case was referred to Dr. Caraballo as pr request Clinical Impression: Pneumonia Scribe Attestation: Documented by Radha Carlos acting as a scribe for Tr Segovia MD. Scribe Attestation: All medical record entries made by the Scribe were at my direction and personally dictated by me. I have reviewed the chart and agree that the record accurately reflects my personal performance of the history, physical exam, medical decision making, and the department course for this patient. I have also personally directed, reviewed, and agree with the discharge instructions and disposition. Disposition - Clinical Impression Clinical Impression: Asthma, Influenza, Pneumonia - Patient ED Disposition Is Patient to be Admitted: Yes Discussed With : Judy Kirkpatrick (Dr Robles) - Disposition Disposition Time: 01:00 Condition: FAIR
[2017-10-27] MEDS ORDERED: Ipratropium 0.02% Inhal Soln (0.5 mg/2.5 ml) UD IH STA (01:47)
[2017-10-27] MEDS ORDERED: levoFLOXacin 750 mg in D5W 750 MG/150 ML BAG IVPB STA (01:49)
[2017-10-27] MEDS ORDERED: Ipratropium 0.02% Inhal Soln (0.5 mg/2.5 ml) UD IH ONE ×3 (02:51→16:24)
[2017-10-27] MEDS ORDERED: levoFLOXacin 750 mg in D5W 750 MG/150 ML BAG IVPB ONE (02:51)
--- NOTE | 2017-10-27 08:52 | RAD ---
HISTORY: chest pain COMPARISON: 09/24/2017 FINDINGS: LUNGS: Mild bilateral interstitial changes new since prior exam. PLEURA: No significant pleural effusion identified, no pneumothorax apparent. CARDIOVASCULAR: Normal. OSSEOUS STRUCTURES: Pacemaker leads are in place. Atherosclerotic aorta. No significant abnormalities. VISUALIZED UPPER ABDOMEN: Normal. OTHER FINDINGS: None. IMPRESSION: Mild bilateral interstitial changes new since prior exam.
--- NOTE | 2017-10-27 10:26 | CARD ---
APPROVED REPORT EKG Measurement Heart [id number] [id number] <Conclusion> Sinus tachycardia Otherwise normal ECG
[2017-10-27] MEDS: Lactobacillus Acidophilus 500 MU Cap PO SCH (11:28)
[2017-10-27] MEDS ORDERED: Pantoprazole 40 mg EC Tab PO ONE (11:34)
[2017-10-27] MEDS: Pantoprazole 40 mg EC Tab PO SCH (11:35)
[2017-10-27] MEDS: Ipratropium 0.02% Inhal Soln (0.5 mg/2.5 ml) UD IH SCH ×2 (11:36→16:25)
[2017-10-27] MEDS ORDERED: Enoxaparin 40 mg Syringe SC SCH (12:00)
[2017-10-27] MEDS: Azithromycin 500 MG in Sodium Chloride 0.9% 250 ML IVPB SCH (14:16)
[2017-10-27] MEDS: Fluticasone-Salmeterol 250-50mcg Diskus IH SCH (21:49)
--- NOTE | 2017-10-27 22:10 | CP.PCM.HP ---
History of Present Illness - History of Present Illness History of Present Illness: 82 year old female with a pmhx of HTN, hypothyroidism and asthma presents to the ED with c/o of cough, SOB and chest tightness x 1 day. Pt states she took her advair but that did not help her symptoms. Pt states she visited her PMD yesterday for similar symptoms, was started on antibiotics but that did not help. Pt states cough is non productive. Denies fever, chills, nausea or vomiting. The patient tested positive for influenza in the ED and was also noted to have some interstitial changes in the cxr, possibly pneumonia. The patient was admitted on observation status for further monitoring. Present on Admission - Present on Admission Any Indicators Present on Admission: No Review of Systems - Review of Systems All systems: reviewed and no additional remarkable complaints except (as stated) - Constitutional Constitutional: As Per HPI - EENT Eyes: absent: Change in Vision - Cardiovascular Cardiovascular: As Per HPI - Respiratory Respiratory: As Per HPI - Gastrointestinal Gastrointestinal: As Per HPI - Neurological Neurological: As Per HPI - Endocrine Endocrine: As Per HPI Past Patient History - Infectious Disease Hx of Infectious Diseases: None - Tetanus Immunizations Tetanus Immunization: Unknown - Past Medical History & Family History Past Medical History?: Yes Past Family History: Reviewed and not pertinent - Past Social History Smoking Status: Never Smoked - CARDIAC Hx Atrial Fibrillation: Yes Hx Cardia Arrhythmia: Yes Hx Congestive Heart Failure: No Hx Hypercholesterolemia: Yes Hx Hypertension: Yes Hx Pacemaker: Yes - PULMONARY Hx Asthma: Yes Hx Bronchitis: Yes Hx Chronic Obstructive Pulmonary Disease (COPD): Yes Hx Pneumonia: No Hx Pulmonary Embolism: No Hx Sleep Apnea: No - NEUROLOGICAL Hx Alzheimer's Disease: No Hx Dementia: No Hx Seizures: Yes (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) Hx Transient Ischemic Attacks (TIA): No - HEENT Hx HEENT Problems: Yes Hx Deafness: Yes (wears hearing aid on right) Other/Comment: implants both eyes, loss of hearing bilaterally - RENAL Hx Chronic Kidney Disease: Yes - ENDOCRINE/METABOLIC Hx Hypothyroidism: Yes - HEMATOLOGICAL/ONCOLOGICAL Hx Human Immunodeficiency Virus (HIV): No - INTEGUMENTARY Hx Dermatological Problems: No Hx Basil Cell: Yes (nose) - MUSCULOSKELETAL/RHEUMATOLOGICAL Hx Arthritis: Yes Hx Falls: No Hx Fractures: Yes (right hip/right shoulder) - GASTROINTESTINAL Hx Gastritis: Yes - GENITOURINARY/GYNECOLOGICAL Hx Genitourinary Disorders: No Hx Incontinence: Yes - PSYCHIATRIC Hx Psychophysiologic Disorder: No Hx Substance Use: No - SURGICAL HISTORY Hx Appendectomy: Yes Hx Cholecystectomy: Yes Hx Tonsillectomy: Yes - ANESTHESIA Hx Anesthesia: Yes Hx Anesthesia Reactions: Yes Hx Malignant Hyperthermia: No Meds Home Medications: Home Medication List Medication Instructions Recorded Confirmed Type Azithromycin [Z-Tolu] 250 mg PO DAILY #1 tab 10/29/17 Rx Oseltamivir [Tamiflu Cap] 75 mg PO BID 3 Days #6 cap 10/29/17 Rx Allergies/Adverse Reactions: Allergies Allergy/AdvReac Type Severity Reaction Status Date / Time albuterol Allergy RASH Verified 10/06/15 12:18 aspirin Allergy RASH Verified 10/06/15 12:18 iodine Allergy RASH Verified 10/06/15 12:18 Penicillins Allergy RASH Verified 10/06/15 12:18 ammonia AdvReac VOMITING Verified 11/02/15 13:38 Physical Exam - Constitutional Appears: Non-toxic, No Acute Distress - Head Exam Head Exam: ATRAUMATIC, NORMOCEPHALIC - Eye Exam Eye Exam: EOMI, Normal appearance, PERRL Pupil Exam: NORMAL ACCOMODATION - ENT Exam ENT Exam: Mucous Membranes Moist, Normal Exam - Neck Exam Neck exam: Positive for: Full Rom, Normal Inspection - Respiratory Exam Respiratory Exam: Clear to Auscultation Bilateral, NORMAL BREATHING PATTERN - Cardiovascular Exam Cardiovascular Exam: REGULAR RHYTHM, +S1, +S2 - GI/Abdominal Exam GI & Abdominal Exam: Normal Bowel Sounds, Soft - Rectal Exam Rectal Exam: Deferred - Extremities Exam Extremities exam: Positive for: full ROM, pedal pulses present - Back Exam Back exam: FULL ROM, NORMAL INSPECTION - Neurological Exam Neurological exam: Alert, Oriented x3 - Psychiatric Exam Psychiatric exam: Normal Affect, Normal Mood - Skin Skin Exam: Dry, Normal Color, Warm Results - Vital Signs Recent Vital Signs: Last Vital Signs Temp 97.8 F 10/27/17 18:33 Pulse 88 10/27/17 18:33 Resp 19 10/27/17 18:33 BP 134/80 10/27/17 18:33 Pulse Ox 95 10/27/17 18:33 - Labs Result Diagrams: 10/29/17 10:39 10/29/17 10:39 Labs: Laboratory Results - last 24 hr 10/26/17 10/26/17 10/26/17 23:59 23:59 23:59 WBC 9.9 RBC 3.85 Hgb 11.8 L Hct 34.6 MCV 90.0 MCH 30.6 MCHC 34.0 RDW 14.7 H Plt Count 115 L D MPV 10.1 Neut % (Auto) 63.9 Lymph % (Auto) 22.9 [place] % (Auto) 11.9 H Eos % (Auto) 0.9 Baso % (Auto) 0.4 Neut # (Auto) 6.3 Lymph # (Auto) 2.3 [place] # (Auto) 1.2 H Eos # (Auto) 0.1 Baso # (Auto) 0.0 Sodium 139 Potassium 3.5 L Chloride 102 Carbon Dioxide 27 Anion Gap 14 BUN 19 H Creatinine 0.8 Est GFR ( Amer) > 60 Est GFR (Non-Af Amer) > 60 Random Glucose 130 H Lactic Acid 0.7 Calcium 8.4 Total Bilirubin 1.0 AST 20 ALT 29 Alkaline Phosphatase 71 Troponin I < 0.0120 NT-Pro-B Natriuret Pep 215 Total Protein 6.4 Albumin 3.2 L Globulin 3.2 Albumin/Globulin Ratio 1.0 Influenza Typ A,B (EIA) 10/27/17 03:06 WBC RBC Hgb Hct MCV MCH MCHC RDW Plt Count MPV Neut % (Auto) Lymph % (Auto) [place] % (Auto) Eos % (Auto) Baso % (Auto) Neut # (Auto) Lymph # (Auto) [place] # (Auto) Eos # (Auto) Baso # (Auto) Sodium Potassium Chloride Carbon Dioxide Anion Gap BUN Creatinine Est GFR ( Amer) Est GFR (Non-Af Amer) Random Glucose Lactic Acid Calcium Total Bilirubin AST ALT Alkaline Phosphatase Troponin I NT-Pro-B Natriuret Pep Total Protein Albumin Globulin Albumin/Globulin Ratio Influenza Typ A,B (EIA) Pos for influenza a H - EKG Data EKG comments: Sinus tachycardia Otherwise normal ECG - Imaging and Cardiology Chest x-ray Additional comment: HISTORY: chest pain COMPARISON: 09/24/2017 FINDINGS: LUNGS: Mild bilateral interstitial changes new since prior exam. PLEURA: No significant pleural effusion identified, no pneumothorax apparent. CARDIOVASCULAR: Normal. OSSEOUS STRUCTURES: Pacemaker leads are in place. Atherosclerotic aorta. No significant abnormalities. VISUALIZED UPPER ABDOMEN: Normal. OTHER FINDINGS: None. IMPRESSION: Mild bilateral interstitial changes new since prior exam. Assessment & Plan (1) Asthma exacerbation Assessment and Plan: Duonebs Solumedrol Advair O2 via NC if needed Status: Acute Priority: High (2) Flu Assessment and Plan: Initiate Tamiflu Hydrate Status: Acute Priority: High (3) Pneumonia Assessment and Plan: Antibiotics Rocephin/Zithromax Dvt prophylaxis Status: Acute Priority: High
[2017-10-28] MEDS: Ipratropium 0.02% Inhal Soln (0.5 mg/2.5 ml) UD IH SCH ×7 (00:41→19:03)
[2017-10-28] MEDS: Fluticasone-Salmeterol 250-50mcg Diskus IH SCH ×2 (09:11→21:37)
[2017-10-28] MEDS: Lactobacillus Acidophilus 500 MU Cap PO SCH ×2 (09:11→17:43)
[2017-10-28] MEDS: Pantoprazole 40 mg EC Tab PO SCH (09:12)
[2017-10-28] MEDS: Azithromycin 500 MG in Sodium Chloride 0.9% 250 ML IVPB SCH ×2 (10:46→17:41)
--- NOTE | 2017-10-28 22:30 | CP.PCM.PN ---
Subjective - Date & Time of Evaluation Date of Evaluation: 10/28/17 Time of Evaluation: 11:30 - Subjective Subjective: Feels better today, still has cough that is non productive. Denies sob, cp, fever or chills Objective - Vital Signs/Intake and Output Vital Signs (last 24 hours): Temp Pulse Resp BP Pulse Ox 98.2 F 91 H 20 128/70 95 10/28/17 16:17 10/28/17 16:17 10/28/17 16:17 10/28/17 16:17 10/28/17 16:17 - Medications Medications: Current Medications Amlodipine Besylate (Norvasc) 10 mg PO DAILY [facility] Last Admin: 10/28/17 09:12 Dose: 10 mg Azithromycin 500 mg/ Sodium (Chloride) 250 mls @ 250 mls/hr IVPB DAILY MATY PRN Reason: Protocol Last Admin: 10/28/17 17:41 Dose: Not Given Ceftriaxone Sodium 1 gm/ (Sodium Chloride) 100 mls @ 100 mls/hr IVPB DAILY MATY PRN Reason: Protocol Last Admin: 10/28/17 10:45 Dose: 100 mls/hr Ipratropium [place] (Atrovent) 0.5 mg IH RQ4 [facility] Last Admin: 10/28/17 19:03 Dose: 0.5 mg Lactobacillus Acidophilus (Bacid Acidophilus) 1 cap PO BID MATY Last Admin: 10/28/17 17:43 Dose: 1 cap Levothyroxine Sodium (Levothroid) 137 mcg PO DAILY@0630 [facility] Last Admin: 10/28/17 06:34 Dose: 137 mcg Oseltamivir Phosphate (Tamiflu Cap) 75 mg PO BID MATY PRN Reason: Protocol Last Admin: 10/28/17 17:40 Dose: 75 mg Pantoprazole Sodium (Protonix Ec Tab) 40 mg PO DAILY [facility] Last Admin: 10/28/17 09:12 Dose: 40 mg Fluticasone/Salmeterol (Advair Diskus 250/50) 1 puff IH Q12 MATY Last Admin: 10/28/17 21:37 Dose: 1 puff - Labs Labs: 10/26/17 23:59 10/26/17 23:59 - Constitutional Appears: Well, No Acute Distress - Head Exam Head Exam: ATRAUMATIC, NORMOCEPHALIC - Respiratory Exam Respiratory Exam: Clear to Ausculation Bilateral, NORMAL BREATHING PATTERN - Cardiovascular Exam Cardiovascular Exam: REGULAR RHYTHM, +S1, +S2 - GI/Abdominal Exam GI & Abdominal Exam: Soft, Normal Bowel Sounds - Neurological Exam Neurological Exam: Alert, Oriented x3 - Psychiatric Exam Psychiatric exam: Normal Affect, Normal Mood - Skin Skin Exam: Normal Color, Warm Assessment and Plan (1) Asthma exacerbation Assessment & Plan: Pt improving continue present treatment Status: Acute (2) Flu Assessment & Plan: Continue hydration Tamiflu Status: Acute (3) Pneumonia Assessment & Plan: Continue antibiotics Status: Acute
[2017-10-29] MEDS: Ipratropium 0.02% Inhal Soln (0.5 mg/2.5 ml) UD IH SCH ×5 (00:28→16:11)
[2017-10-29 08:45] VITALS: BP 125/79; PULSE 84; RESP 18; TEMP 98.8; O2SAT 97
[2017-10-29 09:05] LABS: URINE BILIRUBIN NEGATIVE (NEGATIVE); URINE BLOOD NEGATIVE (NEGATIVE); URINE CLARITY CLEAR (Clear); URINE COLOR STRAW (YELLOW); URINE GLUCOSE (UA) NEG (Normal); URINE LEUKOCYTE ESTERASE NEG Leu/uL (Negative); URINE NITRATE NEGATIVE (NEGATIVE); URINE PROTEIN NEGATIVE (NEGATIVE); URINE UROBILINOGEN 0.2-1.0 mg/dL (0.2-1.0)
[2017-10-29] MEDS: Fluticasone-Salmeterol 250-50mcg Diskus IH SCH (09:11)
[2017-10-29] MEDS: Pantoprazole 40 mg EC Tab PO SCH (09:12)
[2017-10-29] MEDS: Lactobacillus Acidophilus 500 MU Cap PO SCH (09:22)
[2017-10-29 11:55] LABS: BASO % 0.3 % (0.0-2.0); EOS # 0.1 K/uL (0.0-0.7); EOS % 0.6 % (0.0-4.0); HEMOGLOBIN 12.8 g/dL (12.0-16.0); LYMPH # 2.6 K/uL (1.0-4.3); LYMPH % 27.9 % (20.0-40.0); MEAN CELL VOLUME 90.2 fl (81.0-99.0); MEAN CORPUSCULAR HEMOGLOBIN 30.2 pg (27.0-31.0); MEAN CORPUSCULAR HGB CONC 33.5 g/dL (33.0-37.0); MEAN PLATELET VOLUME 9.7 fl (7.2-11.7); MONO # 0.8 K/uL (0.0-0.8); MONO % 8.1 % (0.0-10.0); NEUT % 63.1 % (50.0-75.0); NRBC % 0.2 % (0.0-0.0); RBC 4.24 Mil/uL (3.80-5.20); RED CELL DISTRIBUTION WIDTH 14.6 % (11.5-14.5); WHITE BLOOD COUNT 9.5 K/uL (4.8-10.8)
[2017-10-29 12:11] LABS: ALBUMIN 3.5 g/dL (3.5-5.0); ALT/SGPT 46 U/L (9-52); AST/SGOT 53 U/L (14-36); BLOOD UREA NITROGEN 21 mg/dl (7-17); CALCIUM 8.9 mg/dL (8.4-10.2); GFR AFRICAN-AMERICAN > 60; GFR NON-AFRICAN AMERICAN > 60
[2017-10-29] MEDS: Azithromycin 500 MG in Sodium Chloride 0.9% 250 ML IVPB SCH (15:39)
--- NOTE | 2017-10-29 23:41 | CP.PCM.DIS ---
Provider - Provider Date of Admission: 10/27/17 01:48 Attending physician: Judy Kirkpatrick MD Diagnosis - Discharge Diagnosis (1) Asthma exacerbation Status: Acute (2) Flu Status: Acute (3) Pneumonia Status: Acute Hospital Course - Lab Results Lab Results: Micro Results 10/26/17 03:06 Blood Blood Culture - Preliminary NO GROWTH AFTER 48 HOURS 10/26/17 00:03 Blood Blood Culture - Preliminary NO GROWTH AFTER 48 HOURS Most Recent Lab Values WBC 9.5 K/uL (4.8-10.8) 10/29/17 10:39 RBC 4.24 Mil/uL (3.80-5.20) 10/29/17 10:39 Hgb 12.8 g/dL (12.0-16.0) 10/29/17 10:39 Hct 38.2 % (34.0-47.0) 10/29/17 10:39 MCV 90.2 fl (81.0-99.0) 10/29/17 10:39 MCH 30.2 pg (27.0-31.0) 10/29/17 10:39 MCHC 33.5 g/dL (33.0-37.0) 10/29/17 10:39 RDW 14.6 % (11.5-14.5) H 10/29/17 10:39 Plt Count 166 K/uL (130-400) 10/29/17 10:39 MPV 9.7 fl (7.2-11.7) 10/29/17 10:39 Neut % (Auto) 63.1 % (50.0-75.0) 10/29/17 10:39 Lymph % (Auto) 27.9 % (20.0-40.0) 10/29/17 10:39 [place] % (Auto) 8.1 % (0.0-10.0) 10/29/17 10:39 Eos % (Auto) 0.6 % (0.0-4.0) 10/29/17 10:39 Baso % (Auto) 0.3 % (0.0-2.0) 10/29/17 10:39 Neut # (Auto) 6.0 K/uL (1.8-7.0) 10/29/17 10:39 Lymph # (Auto) 2.6 K/uL (1.0-4.3) 10/29/17 10:39 [place] # (Auto) 0.8 K/uL (0.0-0.8) 10/29/17 10:39 Eos # (Auto) 0.1 K/uL (0.0-0.7) 10/29/17 10:39 Baso # (Auto) 0.0 K/uL (0.0-0.2) 10/29/17 10:39 Sodium 140 mmol/l (132-148) 10/29/17 10:39 Potassium 3.6 MMOL/L (3.6-5.0) 10/29/17 10:39 Chloride 102 mmol/L (98-107) 10/29/17 10:39 Carbon Dioxide 27 mmol/L (22-30) 10/29/17 10:39 Anion Gap 15 (10-20) 10/29/17 10:39 BUN 21 mg/dl (7-17) H 10/29/17 10:39 Creatinine 0.9 mg/dl (0.7-1.2) 10/29/17 10:39 Est GFR ( Amer) > 60 10/29/17 10:39 Est GFR (Non-Af Amer) > 60 10/29/17 10:39 Random Glucose 115 mg/dL (65-105) H 10/29/17 10:39 Lactic Acid 0.7 MMOL/L (0.7-2.1) 10/26/17 23:59 Calcium 8.9 mg/dL (8.4-10.2) 10/29/17 10:39 Total Bilirubin 0.7 mg/dl (0.2-1.3) 10/29/17 10:39 AST 53 U/L (14-36) H D 10/29/17 10:39 ALT 46 U/L (9-52) 10/29/17 10:39 Alkaline Phosphatase 99 U/L (38-126) 10/29/17 10:39 Troponin I < 0.0120 ng/mL (0.00-0.120) 10/26/17 23:59 NT-Pro-B Natriuret Pep 215 pg/ml (0-900) 10/26/17 23:59 Total Protein 7.0 G/DL (6.3-8.2) 10/29/17 10:39 Albumin 3.5 g/dL (3.5-5.0) 10/29/17 10:39 Globulin 3.5 gm/dL (2.2-3.9) 10/29/17 10:39 Albumin/Globulin Ratio 1.0 (1.0-2.1) 10/29/17 10:39 Urine Color Straw (YELLOW) 10/29/17 08:40 Urine Clarity Clear (Clear) 10/29/17 08:40 Urine pH 6.0 (5.0-8.0) 10/29/17 08:40 Ur Specific [place] 1.009 (1.003-1.030) 10/29/17 08:40 Urine Protein Negative mg/dL (NEGATIVE) 10/29/17 08:40 Urine Glucose (UA) Neg mg/dL (Normal) 10/29/17 08:40 Urine Ketones Negative mg/dL (NEGATIVE) 10/29/17 08:40 Urine Blood Negative (NEGATIVE) 10/29/17 08:40 Urine Nitrate Negative (NEGATIVE) 10/29/17 08:40 Urine Bilirubin Negative (NEGATIVE) 10/29/17 08:40 Urine Urobilinogen 0.2-1.0 mg/dL (0.2-1.0) 10/29/17 08:40 Ur Leukocyte Esterase Neg Reshma/uL (Negative) 10/29/17 08:40 Urine RBC (Auto) 1 /hpf (0-3) 10/29/17 08:40 Urine Microscopic WBC 1 /hpf (0-5) 10/29/17 08:40 Stool Occult Blood Negative (NEGATIVE) 10/29/17 09:00 Influenza Typ A,B (EIA) Pos for influenza a (NEGATIVE) H 10/27/17 03:06 - Hospital Course Hospital Course: 82 year old female with pmhx of HTN, hypothyroidism and asthma who presented with cough and chest tightness. The patient was treated for asthma exacerbation , for the flu and for Pneumonia. The patient responded well to treatment and symptoms resolved. The patient was discharged home on Tamiflu and zithromax with outpatient f/u instructions. Discharge Exam - Head Exam Head Exam: ATRAUMATIC, NORMOCEPHALIC - Respiratory Exam Respiratory Exam: Clear to PA & Lateral, NORMAL BREATHING PATTERN - Cardiovascular Exam Cardiovascular Exam: REGULAR RHYTHM, +S1, +S2 - GI/Abdominal Exam GI & Abdominal Exam: Normal Bowel Sounds, Soft - Neurological Exam Neurological exam: Alert, Oriented x3 - Psychiatric Exam Psychiatric exam: Normal Affect, Normal Mood - Skin Skin Exam: Normal Color, Warm Discharge Plan - Discharge Medications Prescriptions: Oseltamivir [Tamiflu Cap] 75 mg PO BID 3 Days #6 cap Azithromycin [Z-Tolu] 250 mg PO DAILY #1 tab - Follow Up Plan Condition: STABLE Disposition: HOME/ ROUTINE Instructions: Flu, Adult (DC), Pneumonia, Adult (DC) Additional Instructions: Vianca Robles nov 01 a las 10am Referrals: David Robles MD [Medical Doctor] -
== END 2017-10-29 16:30 | disposition home or self-care (01) ==
LOC: H.ER 22:47 → H.ERHOLD 10-27 01:48 → H.MEDSURG1 10-27 17:50
PROVIDERS: ADMIT Internal Medicine; ATTEND Internal Medicine
DX: J11.00 Influenza due to unidentified influenza virus with unspecified type of pneumonia (principal); E03.9 Hypothyroidism, unspecified; E78.00 Pure hypercholesterolemia, unspecified; H91.93 Unspecified hearing loss, bilateral; I12.9 Hypertensive chronic kidney disease with stage 1 through stage 4 chronic kidney disease, or unspecified chronic kidney disease; I48.91 Unspecified atrial fibrillation; J44.0 Chronic obstructive pulmonary disease with (acute) lower respiratory infection; J45.901 Unspecified asthma with (acute) exacerbation; K21.9 Gastro-esophageal reflux disease without esophagitis; N18.9 Chronic kidney disease, unspecified; Z90.49 Acquired absence of other specified parts of digestive tract; Z95.0 Presence of cardiac pacemaker; K29.70 Gastritis, unspecified, without bleeding; M19.90 Unspecified osteoarthritis, unspecified site; R56.9 Unspecified convulsions; Z79.899 Other long term (current) drug therapy; R06.03 Acute respiratory distress
CPT/HCPCS: 36415; 71045; 80053; 81003; 83605; 83880; 84484; 85025; 87040; 87045; 87086; 87804; 93005; 94640; 96372; 96374; 99284; G0328; G0378; J0456; J0696; J1650; J2270; J2405; J2930

== ENCOUNTER 2018-10-13 01:18 | Inpatient (IN) | payer MEDICARE, OTHER ==
[2018-10-13 01:18] VITALS: BMI 27.4
[2018-10-13] MEDS ORDERED: DiphenhydrAMINE 50 mg/ml Inj IV STA (01:40)
[2018-10-13] MEDS ORDERED: Morphine 4 MG/ML VIAL IVP ONE ×2 (01:54→23:20)
--- NOTE | 2018-10-13 02:10 | ED PDOC ---
HPI: Chest Pain Time Seen by Provider: 10/13/18 01:24 Chief Complaint (Nursing): Chest Pain Chief Complaint (Provider): Groin Pain, Chest Pain History Per: Patient History/Exam Limitations: no limitations Onset/Duration Of Symptoms: Hrs (x24 chest pain), Days (x1 week groin pain) Current Symptoms Are (Timing): Still Present Additional Complaint(s): 83 year old female with extensive pmhx presents to the ED for evaluation of worsening right inguinal pain for the past week s/p falling off her bed to the floor, worse with ambulation. In the past 24 hours, patient notes taking extra strength Tylenol every four hours, and tonight developed chest pain which she attributed to taking too much Tylenol. She called EMS who treated pt with nitroglycerin and aspirin in the field, despite patient having a known aspirin allergy, not apparent to the medics. 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) Denies: Alzheimer's Disease, CHF, Dementia, HIV, Pneumonia, Pulmonary Embolism, Sleep Apnea, TIA Other PMH: arrhythmia - Surgical History Surgical History: Appendectomy, Cholecystectomy, Pacemaker, Tonsillectomy Other surgeries: right hip replacement - Family History Family History: States: Unknown Family Hx - Social History Current smoker - smoking cessation education provided: No Alcohol: None Drugs: Denies - Home Medications Home Medications: Ambulatory Orders Medication Instructions Recorded Acetaminophen [Tylenol Extra 1 tab PO BID PRN 10/13/18 Strength] Carvedilol [Coreg] 1 tab PO BID 10/13/18 Fluticasone/Salmeterol [Advair 1 puff INH BID 10/13/18 250-50 Diskus] Levothyroxine [Synthroid] 1 tab PO QAM 10/13/18 Pantoprazole Sodium [Protonix] 1 tab PO QAM 10/13/18 - Allergies Allergies/Adverse Reactions: Allergies Allergy/AdvReac Type Severity Reaction Status Date / Time albuterol Allergy RASH Verified 10/13/18 04:22 aspirin Allergy RASH Verified 10/13/18 04:22 iodine Allergy RASH Verified 10/13/18 04:22 Penicillins Allergy RASH Verified 10/13/18 04:22 ammonia AdvReac VOMITING Verified 10/13/18 04:22 Review of Systems ROS Statement: Except As Marked, All Systems Reviewed And Found Negative Cardiovascular: Positive for: Chest Pain Musculoskeletal: Positive for: Other (right inguinal pain, worse with ambulation) Physical Exam - Reviewed Nursing Documentation Reviewed: Yes Vital Signs Reviewed: Yes - Physical Exam Appears: Positive for: No Acute Distress Head Exam: Positive for: ATRAUMATIC, NORMAL INSPECTION, NORMOCEPHALIC Skin: Positive for: Normal Color, Warm, DRY Eye Exam: Positive for: EOMI, Normal appearance, PERRL ENT: Positive for: Normal ENT Inspection Neck: Positive for: Normal, Painless ROM, Supple Cardiovascular/Chest: Positive for: Regular Rate, Rhythm Respiratory: Positive for: Normal Breath Sounds. Negative for: Respiratory Distress Gastrointestinal/Abdominal: Positive for: Normal Exam, Soft. Negative for: Tenderness Back: Positive for: Normal Inspection Extremity: Positive for: Tenderness (to right groin on palpation; pain with right leg raise) Neurologic/Psych: Positive for: Alert, Oriented (x3). Negative for: Motor/Sensory Deficits - Laboratory Results Result Diagrams: 10/13/18 02:19 10/13/18 02:19 - ECG O2 Sat by Pulse Oximetry: 98 (RA) Pulse Ox Interpretation: Normal Medical Decision Making Medical Decision Making: Time: 137 Initial Impression: 83 year old female with groin and chest pain Initial Plan: --EKG --Acetaminophen chemistry --BNP --CMP --Trop I --CBC with differential --PTT / PT --CXR --Pelvis with obliques XR --Benadryl 25mg IV --Morphine 2mg IVP --Reevaluation 0610 Labs reviewed show no clinically sig abnormalities PElvic Xray shows NAD Chest xray NAD Patient will be placed on Obs status for Chest Pain given age and comorbidities Provider unable to reach Dr. Robles, so case referred to Dr. Bailey - Scribe Attestation: Documented by Nadra Copeland, acting as a scribe for Tr Segovia MD. Provider Scribe Attestation: All medical record entries made by the Scribe were at my direction and personally dictated by me. I have reviewed the chart and agree that the record accurately reflects my personal performance of the history, physical exam, medical decision making, and the department course for this patient. I have also personally directed, reviewed, and agree with the discharge instructions and disposition. Disposition - Clinical Impression Clinical Impression: Acute chest pain - Disposition Disposition Time: 05:00 Condition: FAIR
[2018-10-13 02:24] LABS: BASO # 0.3 K/uL (0.0-0.2); EOS # 0.2 K/uL (0.0-0.7); LYMPH # 2.3 K/uL (1.0-4.3); LYMPH % 31.3 % (20.0-40.0); MEAN CELL VOLUME 92.7 fl (81.0-99.0); MEAN CORPUSCULAR HEMOGLOBIN 30.7 pg (27.0-31.0); MEAN CORPUSCULAR HGB CONC 33.1 g/dL (33.0-37.0); MEAN PLATELET VOLUME 10.9 fl (7.2-11.7); MONO # 0.7 K/uL (0.0-0.8); NEUT # 3.9 K/uL (1.8-7.0); NEUT % 51.7 % (50.0-75.0); NRBC % 0.1 % (0.0-0.0); PLATELET COUNT 148 K/uL (130-400); RBC 4.25 Mil/uL (3.80-5.20); RED CELL DISTRIBUTION WIDTH 13.4 % (11.5-14.5); WHITE BLOOD COUNT 7.5 K/uL (4.8-10.8)
[2018-10-13 02:28] LABS: INR 1.1; PROTHROMBIN TIME 12.1 Seconds (9.8-13.1)
[2018-10-13 02:31] LABS: PARTIAL THROMBOPLASTIN TIME 29.4 Seconds (25.6-37.1)
[2018-10-13 02:37] LABS: ALBUMIN 3.5 g/dL (3.5-5.0); BLOOD UREA NITROGEN 33 mg/dl (7-17); CALCIUM 9.3 mg/dL (8.4-10.2); GFR NON-AFRICAN AMERICAN 48
[2018-10-13 02:38] LABS: ALT/SGPT 20 U/L (9-52); AST/SGOT 32 U/L (14-36)
[2018-10-13 02:47] LABS: B-TYPE NATRIURETIC PEPTIDE 441 pg/ml (0-900)
[2018-10-13] MEDS ORDERED: DiphenhydrAMINE 50 mg/ml Inj ONE (02:54)
[2018-10-13 04:17] LABS: ANISOCYTOSIS SLIGHT; BASOPHIL 1 % (0-2); EOSINOPHIL 3 % (0-7); LYMPHOCYTE 26 % (20-50); MONOCYTE 9 % (0-10); NEUTROPHIL 59 % (42-75); PLATELET ESTIMATE NORMAL (NORMAL); REACTIVE LYMPHOCYTES 2 % (0-0); TOTAL CELLS COUNTED 100
[2018-10-13 04:19] LABS: OVALOCYTES SLIGHT
--- NOTE | 2018-10-13 10:28 | RAD ---
HISTORY: chest pain COMPARISON: Chest x-ray performed 10/27/17 TECHNIQUE: Chest, one view. FINDINGS: LUNGS: Chronic appearing interstitial markings. Bilateral hilar prominence. Patchy medial right upper lobe atelectasis or infiltrate. Please note that chest x-ray has limited sensitivity for the detection of pulmonary masses. PLEURA: No significant pleural effusion identified. No definite pneumothorax . CARDIOVASCULAR: Dual lead left-sided pacemaker. Cardiomegaly. Dense atherosclerotic calcifications of an ectatic aorta. OSSEOUS STRUCTURES: Osseous demineralization. Degenerative changes. VISUALIZED UPPER ABDOMEN: Unremarkable. OTHER FINDINGS: None. IMPRESSION: Patchy medial right upper lobe atelectasis or infiltrate. Chronic appearing interstitial markings. Bilateral hilar prominence.
--- NOTE | 2018-10-13 11:52 | CARD ---
APPROVED REPORT Date of service: 10/13/2018 EKG Measurement Heart [id number] <Conclusion> Normal sinus rhythm Minimal voltage criteria for LVH, may be normal variant Borderline ECG
--- NOTE | 2018-10-13 12:54 | CP.PCM.CON ---
History of Present Illness - History of Present Illness History of Present Illness: THE PATIENT IS AN 83 YEAR OLD FEMALE WHO HAS A HISTORY OF HYPERTENSION, SSS WITH RECURRENT SYNCOPE IN THE PAST AND A PERMANENT PACEMAKER, HYPERLIPIDEMIA, ASTHMA, GERDS AND ARTHRITIS AND HAD A RIGHT THR. SHE FELL OOB ABOUT A MONTH AGO AND HAS RIGHT GROIN PAIN SINCE. YESTERDAY IN THE EVENING SHE HAD CHEST PRESSURE FOR HOURS ASSOCIATED WITH NAUSEA AND DIAPHORESIS. SHE WENT TO THE ER AND THE PAIN WAS RELIEVED WITH MS. SHE HAS NOT HAD ANY CHEST PAIN SINCE. I FOLLOW HER IN MY OFFICE AND WAS ASKED TO SEE HER ON THIS ADMISSION. Past Patient History - Infectious Disease Hx of Infectious Diseases: None - Tetanus Immunizations Tetanus Immunization: Unknown - Past Medical History & Family History Past Medical History?: Yes - Past Social History Smoking Status: Never Smoked - CARDIAC Hx Atrial Fibrillation: Yes Hx Cardia Arrhythmia: Yes Hx Congestive Heart Failure: No Hx Hypercholesterolemia: Yes Hx Hypertension: Yes Hx Pacemaker: Yes - PULMONARY Hx Asthma: Yes Hx Bronchitis: Yes Hx Chronic Obstructive Pulmonary Disease (COPD): Yes Hx Pneumonia: No Hx Pulmonary Embolism: No Hx Sleep Apnea: No - NEUROLOGICAL Hx Alzheimer's Disease: No Hx Dementia: No Hx Seizures: Yes (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) Hx Transient Ischemic Attacks (TIA): No - HEENT Hx HEENT Problems: Yes Hx Deafness: Yes (wears hearing aid on right) Other/Comment: implants both eyes, loss of hearing bilaterally - RENAL Hx Chronic Kidney Disease: Yes - ENDOCRINE/METABOLIC Hx Hypothyroidism: Yes - HEMATOLOGICAL/ONCOLOGICAL Hx Human Immunodeficiency Virus (HIV): No - INTEGUMENTARY Hx Dermatological Problems: No Hx Basil Cell: Yes (nose) - MUSCULOSKELETAL/RHEUMATOLOGICAL Hx Arthritis: Yes Hx Falls: Yes Hx Fractures: Yes (right hip/right shoulder) - GASTROINTESTINAL Hx Gastritis: Yes - GENITOURINARY/GYNECOLOGICAL Hx Genitourinary Disorders: No Hx Incontinence: Yes - PSYCHIATRIC Hx Psychophysiologic Disorder: No Hx Substance Use: No - SURGICAL HISTORY Hx Appendectomy: Yes Hx Cholecystectomy: Yes Hx Tonsillectomy: Yes - ANESTHESIA Hx Anesthesia: Yes Hx Anesthesia Reactions: Yes Hx Malignant Hyperthermia: No Meds Allergies/Adverse Reactions: Allergies Allergy/AdvReac Type Severity Reaction Status Date / Time albuterol Allergy RASH Verified 10/13/18 04:22 aspirin Allergy RASH Verified 10/13/18 04:22 iodine Allergy RASH Verified 10/13/18 04:22 Penicillins Allergy RASH Verified 10/13/18 04:22 ammonia AdvReac VOMITING Verified 10/13/18 04:22 - Medications Medications: Current Medications Acetaminophen (Tylenol 325mg Tab) 650 mg PO Q6 PRN PRN Reason: Pain, moderate (4-7) Atorvastatin Calcium (Lipitor) 40 mg PO DAILY [facility] Carvedilol (Coreg) 6.25 mg PO Q12 [facility] Clopidogrel Bisulfate (Plavix) 75 mg PO DAILY [facility] Last Admin: 10/13/18 12:00 Dose: 75 mg Enoxaparin Sodium (Lovenox) 40 mg SC DAILY [facility]; Protocol Levothyroxine Sodium (Synthroid) 88 mcg PO DAILY@0630 [facility] Pantoprazole Sodium (Protonix Ec Tab) 40 mg PO DAILY [facility] Fluticasone/Salmeterol (Advair Diskus 250/50) 1 puff IH Q12 [facility] Physical Exam - Respiratory Exam Respiratory Exam: Clear to Auscultation Bilateral - Cardiovascular Exam Cardiovascular Exam: REGULAR RHYTHM, +S1, +S2 - Extremities Exam Additional comments: NO LE EDEMA BILATERAL VV - Additional Findings Additional findings: EKG NSR, LVE TROPONIN #1 IS NORMAL CXR READ INFILTRATE IN RUL-I REVIEWED IT AND THERE IS SOME HAZZINESS IN THE RUL WBC 7.5 Results - Vital Signs Recent Vital Signs: Last Vital Signs Temp 97.6 F 10/13/18 08:00 Pulse 60 10/13/18 09:25 Resp 18 10/13/18 09:25 BP 127/70 10/13/18 08:00 Pulse Ox 97 10/13/18 08:00 - Labs Result Diagrams: 10/13/18 02:19 10/13/18 02:19 Labs: Laboratory Results - last 24 hr 10/13/18 10/13/18 10/13/18 02:19 02:19 02:19 WBC 7.5 RBC 4.25 Hgb 13.0 Hct 39.4 MCV 92.7 MCH 30.7 MCHC 33.1 RDW 13.4 Plt Count 148 MPV 10.9 Neut % (Auto) 51.7 Lymph % (Auto) 31.3 [place] % (Auto) 10.0 Eos % (Auto) 3.0 Baso % (Auto) 4.0 H Neut # (Auto) 3.9 Lymph # (Auto) 2.3 [place] # (Auto) 0.7 Eos # (Auto) 0.2 Baso # (Auto) 0.3 H Neutrophils % (Manual) 59 Lymphocytes % (Manual) 26 Reactive Lymphs % 2 H Monocytes % (Manual) 9 Eosinophils % (Manual) 3 Basophils % (Manual) 1 Platelet Estimate Normal Anisocytosis (manual) Slight Ovalocytes Slight PT 12.1 INR 1.1 APTT 29.4 Sodium 140 Potassium 4.3 Chloride 102 Carbon Dioxide 27 Anion Gap 15 BUN 33 H Creatinine 1.1 Est GFR ( Amer) 58 Est GFR (Non-Af Amer) 48 Random Glucose 90 Calcium 9.3 Total Bilirubin 0.7 AST 32 ALT 20 Alkaline Phosphatase 60 Troponin I < 0.0120 NT-Pro-B Natriuret Pep 441 Total Protein 6.8 Albumin 3.5 Globulin 3.3 Albumin/Globulin Ratio 1.0 Acetaminophen 10/13/18 10/13/18 02:19 10:51 WBC RBC Hgb Hct MCV MCH MCHC RDW Plt Count MPV Neut % (Auto) Lymph % (Auto) [place] % (Auto) Eos % (Auto) Baso % (Auto) Neut # (Auto) Lymph # (Auto) [place] # (Auto) Eos # (Auto) Baso # (Auto) Neutrophils % (Manual) Lymphocytes % (Manual) Reactive Lymphs % Monocytes % (Manual) Eosinophils % (Manual) Basophils % (Manual) Platelet Estimate Anisocytosis (manual) Ovalocytes PT INR APTT Sodium Potassium Chloride Carbon Dioxide Anion Gap BUN Creatinine Est GFR ( Amer) Est GFR (Non-Af Amer) Random Glucose Calcium Total Bilirubin AST ALT Alkaline Phosphatase Troponin I < 0.0120 NT-Pro-B Natriuret Pep Total Protein Albumin Globulin Albumin/Globulin Ratio Acetaminophen < 10.0 L Assessment & Plan - Assessment and Plan (Free Text) Assessment: TYPICAL CHEST PAIN FOR HOURS DESCRIBED PRESSURE AND ASSOCIATED WITH NAUSEA AND DIAPHORESIS. FIRST EKG IS NEGATIVE FOR ACUTE CHANGES AND FIRST TROPONIN IS NORMAL. HYPERTENSION HYPERLIPIDEMIA FALL WITH RIGHT GROIN PAIN Plan: THE PATIENT WAS ADMITTED TO N ON TELEMETRY O2, CLOPIDOGREL, CARVEDILOL, NITRATES, ATORVASTATIN, LOVENOX AND COPD MEDS SERIAL EKGS AND TROPONINS I BELIEVE THAT THE PATIENT SHOULD HAVE A CARDIAC CATH DUE TO THE NATURE AND DURATION OF HER CHEST PAIN AND ASSOCIATED SYMPTOMS. I DISCUSSED THIS WITH DR ADAME AND WE WILL GET A CT OF THE CHEST FIRST TO MAKE SURE IF SHE HAD PNEUMONIA OR NOT AND IF SHE DOES TREAT IT BEFORE WE DO THE CARDIAC CATH DR LEWIS WILL DO THE CARDIAC CATH AND I CALLED HIM AND LEFT A MESSAGE ON HIS CELL PHONE
--- NOTE | 2018-10-13 15:51 | RAD ---
Indication: right inguinal pain Pelvis radiographs Comparison: CT abdomen and pelvis performed without IV contrast on 09/24/17 Findings: Osseous demineralization. Degenerative changes of the lower lumbar spine and bilateral hip joints. Intramedullary chandler and screw fixation of the right hip. No acute displaced fracture or dislocation identified. Pelvic calcifications, likely phleboliths. Moderate constipation. Soft tissues appear unremarkable. Impression: No acute displaced fracture or dislocation evident. If high clinical index of suspicion, suggest cross-sectional imaging for further evaluation. Otherwise, if symptoms persist or if there is continued clinical concern, x-ray follow-up in 7-10 days should be considered.
[2018-10-13] MEDS: Nitroglycerin 2% Ointment Foilpak UD TOP SCH ×2 (16:49→21:27)
[2018-10-13] MEDS: Fluticasone-Salmeterol 250-50mcg Diskus IH SCH (21:26)
[2018-10-13] MEDS: Pantoprazole 40 mg EC Tab PO SCH (21:27)
[2018-10-14] MEDS: Nitroglycerin 2% Ointment Foilpak UD TOP SCH ×4 (04:45→21:14)
[2018-10-14 05:50] LABS: BASO # 0.1 K/uL (0.0-0.2); BASO % 1.1 % (0.0-2.0); EOS # 0.2 K/uL (0.0-0.7); HEMOGLOBIN 12.2 g/dL (12.0-16.0); LYMPH # 2.3 K/uL (1.0-4.3); LYMPH % 44.9 % (20.0-40.0); MEAN CELL VOLUME 92.9 fl (81.0-99.0); MEAN CORPUSCULAR HEMOGLOBIN 30.6 pg (27.0-31.0); MEAN PLATELET VOLUME 10.4 fl (7.2-11.7); MONO # 0.5 K/uL (0.0-0.8); MONO % 10.1 % (0.0-10.0); NEUT # 2.1 K/uL (1.8-7.0); NEUT % 39.9 % (50.0-75.0); NRBC % 0.1 % (0.0-0.0); RBC 3.99 Mil/uL (3.80-5.20); RED CELL DISTRIBUTION WIDTH 13.1 % (11.5-14.5); WHITE BLOOD COUNT 5.2 K/uL (4.8-10.8)
[2018-10-14] MEDS: Levothyroxine 88 MCG TAB PO SCH (06:00)
[2018-10-14 06:15] LABS: ALBUMIN 3.1 g/dL (3.5-5.0); CALCIUM 8.5 mg/dL (8.4-10.2)
[2018-10-14] MEDS: Fluticasone-Salmeterol 250-50mcg Diskus IH SCH ×2 (09:08→21:13)
[2018-10-14] MEDS: Pantoprazole 40 mg EC Tab PO SCH (09:10)
[2018-10-14] MEDS: Enoxaparin 40 mg Syringe SC SCH (09:10)
--- NOTE | 2018-10-14 10:05 | CP.PCM.PN ---
Subjective - Date & Time of Evaluation Date of Evaluation: 10/14/18 Time of Evaluation: 09:00 - Subjective Subjective: HAD SOME CHEST PAIN AGAIN LAST NIGHT BUT NO CHEST PAIN TODAY STILL COMPLAINS OF RIGHT GROIN, KNEE AND FOOT PAIN Objective - Vital Signs/Intake and Output Vital Signs (last 24 hours): Temp Pulse Resp BP Pulse Ox 97.2 F L 66 20 144/77 96 10/14/18 09:01 10/14/18 09:09 10/14/18 09:01 10/14/18 09:09 10/14/18 09:01 - Medications Medications: Current Medications Acetaminophen (Tylenol 325mg Tab) 650 mg PO Q6 PRN PRN Reason: Pain, moderate (4-7) Last Admin: 10/14/18 05:12 Dose: 650 mg Atorvastatin Calcium (Lipitor) 40 mg PO DAILY [facility] Last Admin: 10/14/18 09:10 Dose: 40 mg Carvedilol (Coreg) 6.25 mg PO Q12 [facility] Last Admin: 10/14/18 09:09 Dose: 6.25 mg Clopidogrel Bisulfate (Plavix) 75 mg PO DAILY [facility] Last Admin: 10/14/18 09:10 Dose: 75 mg Enoxaparin Sodium (Lovenox) 40 mg SC DAILY [facility]; Protocol Last Admin: 10/14/18 09:10 Dose: 40 mg Levothyroxine Sodium (Synthroid) 88 mcg PO DAILY@0630 [facility] Last Admin: 10/14/18 06:00 Dose: 88 mcg Nitroglycerin (Nitro-Bid 2% Oint) 1 ea TOP Q6 [facility] Last Admin: 10/14/18 04:45 Dose: 1 ea Pantoprazole Sodium (Protonix Ec Tab) 40 mg PO DAILY [facility] Last Admin: 10/14/18 09:10 Dose: 40 mg Fluticasone/Salmeterol (Advair Diskus 250/50) 1 puff IH Q12 [facility] Last Admin: 10/14/18 09:08 Dose: 1 puff - Labs Labs: 10/14/18 04:50 10/14/18 04:50 PT 12.1 Seconds (9.8-13.1) 10/13/18 02:19 INR 1.1 10/13/18 02:19 APTT 29.4 Seconds (25.6-37.1) 10/13/18 02:19 - Respiratory Exam Respiratory Exam: Clear to Ausculation Bilateral - Cardiovascular Exam Cardiovascular Exam: REGULAR RHYTHM, +S1, +S2 - Extremities Exam Additional comments: NO LE EDEMA - Additional Findings Additional findings: TELEVISION SERVICE ENGINEER SHOWS NORMAL SINUS RHYTHM TROPONINS ARE NORMAL PELVIC X-RAYS NO FRACTURE SEEN CHEST CT DONE BUT REPORT IS PENDING Assessment and Plan - Assessment and Plan (Free Text) Assessment: CHEST PAIN HYPERTENSION HYPERLIPIDEMIA COPD RIGHT HIP REPLACEMENT WITH FALL AND RIGHT GROIN PAIN RIGHT KNEE AND RIGHT FOOT PAIN Plan: PATIENT SEEN AND DISCUSSED WITH DR LEWIS WHO RECOMMENDS A PHARMACOLOGICAL STRESS TEST FIRST AND DOING A CARDIAC CATH IF IT IS ABNORMAL CONTINUE CLOPIDOGREL, CARVEDILOL, NITRATES, LOVENOX AND ATORVASTATIN CT OF RIGHT HIP ORDERED DUE TO CONTINUED PAIN FROM HER FALL ONE MONTH AGO RIGHT KNEE AND RIGHT FOOT X-RAYS ORDERED
--- NOTE | 2018-10-14 12:01 | CARD ---
APPROVED REPORT Date of service: 10/14/2018 EXAM: Two-dimensional and M-mode echocardiogram with Doppler and color Doppler. Other Information Quality : GoodRhythm : Pacemaker INDICATION Chest Pain Surgery/Intervention Pacemaker: 2D DIMENSIONS IVSd1.27 (0.7-1.1cm)LVDd4.84 (3.9-5.9cm) LVOT Diameter2.29 (1.8-2.4cm)PWd0.69 (0.7-1.1cm) IVSs1.76 (0.8-1.2cm)LVDs2.57 (2.5-4.0cm) FS (%) 46.9 %PWs1.77 (0.8-1.2cm) M-Mode DIMENSIONS Left Atrium (MM)4.50 (2.5-4.0cm)IVSd1.29 (0.7-1.1cm) Aortic Root3.15 (2.2-3.7cm)LVDd5.15 (4.0-5.6cm) Aortic Cusp Exc.1.59 (1.5-2.0cm)PWd1.12 (0.7-1.1cm) IVSs1.59 cmFS (%) 44 % LVDs2.88 (2.0-3.8cm)PWs1.65 cm Aortic Valve AoV Peak [place]427.5cm/sAoV VTI29.2cmAO Peak GR.10mmHg LVOT Peak Xawfsxpi121.5cm/sLVOT VTI20.93cmAO Mean GR.5mmHg SHIVANI (VMAX)1.19xl8BBP (VTI)1.65cm2 Mitral Valve MV E Raksfcjb34.0cm/sMV DECEL BYNM110zxGC A Qaatoiit742.7cm/s MV EXP59pyH/A ratio0.7MVA (PHT)2.75cm2 TDI Lateral E' Peak V8.80cm/sMedial E' Peak V5.46cm/sE/Lateral E'8.8 E/Medial E'14.1 Tricuspid Valve TR Peak Xdcfibgp800vx/sRAP EILSHLQW07baUdJK Peak Gr.18mmHg MWKE90whEd LEFT VENTRICLE The left ventricle is normal size. There is normal left ventricular wall thickness. The left ventricular systolic function is normal. The estimated ejection fraction is 60-65% No regional wall motion abnormalities noted.. Transmitral Doppler flow pattern is Grade I-abnormal relaxation pattern. No left ventricle thrombus noted on this study. There is no ventricular septal defect visualized. There is no left ventricular aneurysm. There is no mass noted in the left ventricle. RIGHT VENTRICLE The right ventricle is normal size. There is normal right ventricular wall thickness. The right ventricular systolic function is normal. There is a PPM lead noticed in right ventricle. ATRIA The left atrium is mildly dilated. The right atrium size is normal. The interatrial septum is intact with no evidence for an atrial septal defect. AORTIC VALVE The aortic valve is normal in structure. No aortic regurgitation is present. There is no aortic valvular stenosis. There is no aortic valvular vegetation. MITRAL VALVE The mitral valve is normal in structure. There is no evidence of mitral valve prolapse. There is no mitral valve stenosis. There is trace mitral valve regurgitation noted. TRICUSPID VALVE The tricuspid valve is normal in structure. There is mild tricuspid valve regurgitation noted. RVSP is calculated at 23 mm Hg. There is no tricuspid valve prolapse or vegetation. There is no tricuspid valve stenosis. PULMONIC VALVE The pulmonary valve is normal in structure. There is no pulmonic valvular regurgitation. There is no pulmonic valvular stenosis. GREAT VESSELS The aortic root is normal in size. The ascending aorta is normal in size. The pulmonary artery is normal. The IVC is normal in size and collapses >50% with inspiration. PERICARDIAL EFFUSION There is no pericardial effusion. There is no pleural effusion. <Conclusion> The estimated ejection fraction is 60-65% Transmitral Doppler flow pattern is Grade I-abnormal relaxation pattern. The left atrium is mildly dilated. There is a PPM lead noticed in right ventricle. There is trace mitral valve regurgitation noted. There is mild tricuspid valve regurgitation noted. RVSP is calculated at 23 mm Hg.
--- NOTE | 2018-10-14 12:07 | CARD ---
APPROVED REPORT Date of service: 10/14/2018 EKG Measurement Heart [id number] <Conclusion> Normal sinus rhythm Voltage criteria for left ventricular hypertrophy Abnormal ECG
--- NOTE | 2018-10-14 12:49 | CT ---
Date of service: 10/13/2018 PROCEDURE: CT Chest without contrast HISTORY: Abnormal CXR COMPARISON: None available. TECHNIQUE: Contiguous axial images were obtained through the chest without intravenous contrast enhancement. Sagittal and coronal reconstructions were performed. Radiation dose: Total exam DLP = 224.64 mGy-cm. This CT exam was performed using one or more of the following dose reduction techniques: Automated exposure control, adjustment of the mA and/or kV according to patient size, and/or use of iterative reconstruction technique. FINDINGS: LUNGS: Minimal bibasilar fibrotic change. MEDIASTINUM: Unremarkable thoracic aorta. No aneurysm. Normal sized heart. Main pulmonary artery unremarkable. No vascular congestion. No lymphadenopathy. No aortic atherosclerotic calcification. PLEURA: No pleural fluid. No pneumothorax. BONES: No fracture. No destructive lesion. UPPER ABDOMEN: Grossly unremarkable. OTHER FINDINGS: Large hiatal hernia. Status post cholecystectomy. Pacemaker and leads in place. IMPRESSION: No acute pathology.
--- NOTE | 2018-10-14 13:39 | CT ---
Date of service: 10/14/2018 PROCEDURE: HISTORY: RT THR WITH RECENT FALL AND PAIN COMPARISON: TECHNIQUE: FINDINGS: Status post ORIF a right femoral neck fracture. No evidence of acute fracture dislocation. No gross muscle tear hematoma is observed. Limited assessment of the pelvic cavity is unremarkable. IMPRESSION: Status post ORIF of a right femoral neck fracture. No acute fracture.
--- NOTE | 2018-10-14 23:08 | CP.PCM.CON ---
History of Present Illness - History of Present Illness History of Present Illness: Consultation for evaluation of chest pain HPI: Vilma is a 83-year-old female with past medical history significant for recurrent episodes of syncope questionable sick sinus syndrome status post pacemaker placement who presented to the emergency room with complaints of right inguinal discomfort and pain ongoing for a week after sustaining a fall from the bed worse with ambulation. 24 hours prior to presentation she noted to have some epigastric chest discomfort attributable to recurrent bouts of Tylenol patient apparently called EMS and was given nitroglycerin and aspirin in the field. During the hospitalization overnight she was noted to have recurrent bouts of chest pain not positional or pleuritic in nature for which Dr. Cornel alvarenga was concerned and asked me to evaluate for possible cardiac catheterization history is somewhat ambiguous in nature and I was not able to obtain good sense of her underlying etiology of her presentation since she was ruled out for ACS ACS I would recommend to have further risk stratification with noninvasive evaluation with nuclear stress test. Review of Systems - Review of Systems Systems not reviewed;Unavailable: Acuity of Condition - Constitutional Constitutional: As Per HPI - EENT Eyes: As Per HPI Ears: As Per HPI Nose/Mouth/Throat: As Per HPI - Breasts Breasts: As Per HPI - Cardiovascular Cardiovascular: As Per HPI - Respiratory Respiratory: As Per HPI - Gastrointestinal Gastrointestinal: As Per HPI - Genitourinary Genitourinary: As Per HPI - Reproductive: Female Reproductive:Female: As Per HPI - Menstruation Menstruation: As Per HPI - Musculoskeletal Musculoskeletal: As Per HPI - Integumentary Integumentary: As Per HPI - Neurological Neurological: As Per HPI - Psychiatric Psychiatric: As Per HPI - Endocrine Endocrine: As Per HPI Past Patient History - Infectious Disease Hx of Infectious Diseases: None - Tetanus Immunizations Tetanus Immunization: Unknown - Past Medical History & Family History Past Medical History?: Yes - Past Social History Alcohol: None Drugs: Denies - CARDIAC Hx Atrial Fibrillation: Yes Hx Cardia Arrhythmia: Yes Hx Congestive Heart Failure: No Hx Hypercholesterolemia: Yes Hx Hypertension: Yes Hx Pacemaker: Yes - PULMONARY Hx Asthma: Yes Hx Bronchitis: Yes Hx Chronic Obstructive Pulmonary Disease (COPD): Yes Hx Pneumonia: No Hx Pulmonary Embolism: No Hx Sleep Apnea: No - NEUROLOGICAL Hx Alzheimer's Disease: No Hx Dementia: No Hx Seizures: Yes (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) Hx Transient Ischemic Attacks (TIA): No - HEENT Hx HEENT Problems: Yes Hx Deafness: Yes (wears hearing aid on right) Other/Comment: implants both eyes, loss of hearing bilaterally - RENAL Hx Chronic Kidney Disease: Yes - ENDOCRINE/METABOLIC Hx Hypothyroidism: Yes - HEMATOLOGICAL/ONCOLOGICAL Hx Human Immunodeficiency Virus (HIV): No - INTEGUMENTARY Hx Dermatological Problems: No Hx Basil Cell: Yes (nose) - MUSCULOSKELETAL/RHEUMATOLOGICAL Hx Arthritis: Yes Hx Fractures: Yes (right hip/right shoulder) - GASTROINTESTINAL Hx Gastritis: Yes - GENITOURINARY/GYNECOLOGICAL Hx Genitourinary Disorders: No Hx Incontinence: Yes - PSYCHIATRIC Hx Psychophysiologic Disorder: No Hx Substance Use: No - SURGICAL HISTORY Hx Appendectomy: Yes Hx Cholecystectomy: Yes Hx Tonsillectomy: Yes - ANESTHESIA Hx Anesthesia: Yes Hx Anesthesia Reactions: Yes Hx Malignant Hyperthermia: No Meds Allergies/Adverse Reactions: Allergies Allergy/AdvReac Type Severity Reaction Status Date / Time albuterol Allergy RASH Verified 10/13/18 04:22 aspirin Allergy RASH Verified 10/13/18 04:22 iodine Allergy RASH Verified 10/13/18 04:22 Penicillins Allergy RASH Verified 10/13/18 04:22 ammonia AdvReac VOMITING Verified 10/13/18 04:22 - Medications Medications: Current Medications Acetaminophen (Tylenol 325mg Tab) 650 mg PO Q6 PRN PRN Reason: Pain, moderate (4-7) Last Admin: 10/14/18 22:23 Dose: 650 mg Atorvastatin Calcium (Lipitor) 40 mg PO DAILY [facility] Last Admin: 10/14/18 09:10 Dose: 40 mg Carvedilol (Coreg) 6.25 mg PO Q12 [facility] Last Admin: 10/14/18 21:14 Dose: 6.25 mg Clopidogrel Bisulfate (Plavix) 75 mg PO DAILY [facility] Last Admin: 10/14/18 09:10 Dose: 75 mg Enoxaparin Sodium (Lovenox) 40 mg SC DAILY [facility]; Protocol Last Admin: 10/14/18 09:10 Dose: 40 mg Famotidine (Pepcid) 20 mg PO DAILY [facility] Last Admin: 10/14/18 13:11 Dose: 20 mg Levothyroxine Sodium (Synthroid) 88 mcg PO DAILY@0630 [facility] Last Admin: 10/14/18 06:00 Dose: 88 mcg Nitroglycerin (Nitro-Bid 2% Oint) 1 ea TOP Q6 [facility] Last Admin: 10/14/18 21:14 Dose: 1 ea Pantoprazole Sodium (Protonix Ec Tab) 40 mg PO DAILY [facility] Last Admin: 10/14/18 09:10 Dose: 40 mg Fluticasone/Salmeterol (Advair Diskus 250/50) 1 puff IH Q12 [facility] Last Admin: 10/14/18 21:13 Dose: 1 puff Physical Exam - Constitutional Appears: Well - Head Exam Head Exam: ATRAUMATIC, NORMAL INSPECTION, NORMOCEPHALIC - Eye Exam Eye Exam: EOMI, Normal appearance, PERRL Pupil Exam: NORMAL ACCOMODATION, PERRL - ENT Exam ENT Exam: Mucous Membranes Moist, Normal Exam - Neck Exam Neck exam: Positive for: Normal Inspection - Respiratory Exam Respiratory Exam: Clear to Auscultation Bilateral, NORMAL BREATHING PATTERN - Cardiovascular Exam Cardiovascular Exam: REGULAR RHYTHM, RRR, +S1, +S2, Systolic Murmur - GI/Abdominal Exam GI & Abdominal Exam: Normal Bowel Sounds, Soft. absent: Tenderness - Extremities Exam Extremities exam: Positive for: normal inspection - Back Exam Back exam: NORMAL INSPECTION - Neurological Exam Neurological exam: Alert, CN II-XII Intact, Normal Gait, Oriented x3, Reflexes Normal - Psychiatric Exam Psychiatric exam: Normal Affect, Normal Mood - Skin Skin Exam: Dry, Intact, Normal Color, Warm Results - Vital Signs Recent Vital Signs: Last Vital Signs Temp 97.7 F 10/14/18 19:18 Pulse 60 10/14/18 21:14 Resp 20 10/14/18 19:18 BP 158/64 H 10/14/18 21:14 Pulse Ox 96 10/14/18 19:18 - Labs Result Diagrams: 10/14/18 04:50 10/14/18 04:50 Labs: Laboratory Results - last 24 hr 10/14/18 10/14/18 04:50 04:50 WBC 5.2 RBC 3.99 Hgb 12.2 Hct 37.0 MCV 92.9 MCH 30.6 MCHC 33.0 RDW 13.1 Plt Count 123 L D MPV 10.4 Neut % (Auto) 39.9 L Lymph % (Auto) 44.9 H [place] % (Auto) 10.1 H Eos % (Auto) 4.0 Baso % (Auto) 1.1 Neut # (Auto) 2.1 Lymph # (Auto) 2.3 [place] # (Auto) 0.5 Eos # (Auto) 0.2 Baso # (Auto) 0.1 Sodium 143 Potassium 3.7 Chloride 104 Carbon Dioxide 28 Anion Gap 15 BUN 23 H Creatinine 1.1 Est GFR ( Amer) 58 Est GFR (Non-Af Amer) 48 Random Glucose 81 Calcium 8.5 Total Bilirubin 0.8 AST 26 ALT 20 Alkaline Phosphatase 62 Total Protein 6.2 L Albumin 3.1 L Globulin 3.1 Albumin/Globulin Ratio 1.0 Triglycerides 95 Cholesterol 146 LDL Cholesterol Direct 85 HDL Cholesterol 33 TSH 3rd Generation 11.10 H Assessment & Plan (1) Acute chest pain Assessment and Plan: ACS ruled out with serial TnI x 4 Echo shows normal LVEF further risk stratification with stress testing Status: Acute (2) Accelerated hypertension Assessment and Plan: cont coreg add arb Status: Acute Priority: High (3) DJD (degenerative joint disease) Status: Acute Priority: High (4) Dyspnea Status: Acute (5) Pneumonia Status: Acute
[2018-10-15] MEDS: Nitroglycerin 2% Ointment Foilpak UD TOP SCH ×4 (04:30→21:24)
[2018-10-15] MEDS: Levothyroxine 88 MCG TAB PO SCH (06:07)
--- NOTE | 2018-10-15 10:41 | CP.PCM.PN ---
<Jose Cruz Briseno - Last Filed: 10/15/18 15:15> Objective - Vital Signs/Intake and Output Vital Signs (last 24 hours): Temp Pulse Resp BP Pulse Ox 97.6 F 61 18 158/90 H 97 10/15/18 07:57 10/15/18 14:27 10/15/18 07:57 10/15/18 14:27 10/15/18 07:57 - Medications Medications: Current Medications Acetaminophen (Tylenol 325mg Tab) 650 mg PO Q6 PRN PRN Reason: Pain, moderate (4-7) Last Admin: 10/15/18 05:23 Dose: 650 mg Atorvastatin Calcium (Lipitor) 40 mg PO DAILY [facility] Last Admin: 10/15/18 13:30 Dose: 40 mg Carvedilol (Coreg) 6.25 mg PO Q12 [facility] Last Admin: 10/15/18 13:29 Dose: 6.25 mg Clopidogrel Bisulfate (Plavix) 75 mg PO DAILY [facility] Last Admin: 10/15/18 13:30 Dose: 75 mg Enoxaparin Sodium (Lovenox) 40 mg SC DAILY [facility]; Protocol Last Admin: 10/15/18 13:31 Dose: 40 mg Famotidine (Pepcid) 20 mg PO DAILY [facility] Last Admin: 10/15/18 13:29 Dose: 20 mg Levothyroxine Sodium (Synthroid) 88 mcg PO DAILY@0630 [facility] Last Admin: 10/15/18 06:07 Dose: 88 mcg Losartan Potassium (Cozaar) 25 mg PO DAILY [facility] Last Admin: 10/15/18 13:38 Dose: 25 mg Nitroglycerin (Nitro-Bid 2% Oint) 1 ea TOP Q6 [facility] Last Admin: 10/15/18 13:36 Dose: 1 ea Ondansetron HCl (Zofran Inj) 4 mg IVP Q4 PRN PRN Reason: Nausea/Vomiting Last Admin: 10/15/18 13:19 Dose: 4 mg Pantoprazole Sodium (Protonix Ec Tab) 40 mg PO DAILY [facility] Last Admin: 10/15/18 13:29 Dose: 40 mg Fluticasone/Salmeterol (Advair Diskus 250/50) 1 puff IH Q12 [facility] Last Admin: 10/15/18 13:22 Dose: 1 puff - Labs Labs: 10/14/18 04:50 10/14/18 04:50 PT 12.1 Seconds (9.8-13.1) 10/13/18 02:19 INR 1.1 10/13/18 02:19 APTT 29.4 Seconds (25.6-37.1) 10/13/18 02:19 Assessment and Plan (1) Acute chest pain Status: Acute (2) Accelerated hypertension Status: Acute (3) DJD (degenerative joint disease) Status: Acute (4) Dyspnea Status: Acute (5) Pneumonia Status: Acute Attending/Attestation - Attestation I have personally seen and examined this patient.: Yes I have fully participated in the care of the patient.: Yes I have reviewed all pertinent clinical information, including history, physical exam and plan: Yes Notes (Text): 10/15/18 15:15 plan for cath at [facility] if stress test +ve med rx per <Phillip Carlos - Last Filed: 10/15/18 16:26> Subjective - Date & Time of Evaluation Date of Evaluation: 10/15/18 Time of Evaluation: 10:40 - Subjective Subjective: Phillip Carlos DO PGY1 - Cardiology Note For Dr. Briseno Patient was seen and evaluated at bedside this morning, Prior to NST. No complaints offered during evaluation NST results pending Objective - Vital Signs/Intake and Output Vital Signs (last 24 hours): Temp Pulse Resp BP Pulse Ox 97.6 F 66 18 172/81 H 97 10/15/18 07:57 10/15/18 07:57 10/15/18 07:57 10/15/18 07:57 10/15/18 07:57 - Medications Medications: Current Medications Acetaminophen (Tylenol 325mg Tab) 650 mg PO Q6 PRN PRN Reason: Pain, moderate (4-7) Last Admin: 10/15/18 05:23 Dose: 650 mg Atorvastatin Calcium (Lipitor) 40 mg PO DAILY [facility] Last Admin: 10/14/18 09:10 Dose: 40 mg Carvedilol (Coreg) 6.25 mg PO Q12 [facility] Last Admin: 10/14/18 21:14 Dose: 6.25 mg Clopidogrel Bisulfate (Plavix) 75 mg PO DAILY [facility] Last Admin: 10/14/18 09:10 Dose: 75 mg Enoxaparin Sodium (Lovenox) 40 mg SC DAILY [facility]; Protocol Last Admin: 10/14/18 09:10 Dose: 40 mg Famotidine (Pepcid) 20 mg PO DAILY [facility] Last Admin: 10/14/18 13:11 Dose: 20 mg Levothyroxine Sodium (Synthroid) 88 mcg PO DAILY@0630 [facility] Last Admin: 10/15/18 06:07 Dose: 88 mcg Losartan Potassium (Cozaar) 25 mg PO DAILY [facility] Nitroglycerin (Nitro-Bid 2% Oint) 1 ea TOP Q6 [facility] Last Admin: 10/15/18 04:30 Dose: 1 ea Pantoprazole Sodium (Protonix Ec Tab) 40 mg PO DAILY [facility] Last Admin: 10/14/18 09:10 Dose: 40 mg Fluticasone/Salmeterol (Advair Diskus 250/50) 1 puff IH Q12 [facility] Last Admin: 10/14/18 21:13 Dose: 1 puff - Labs Labs: 10/14/18 04:50 10/14/18 04:50 PT 12.1 Seconds (9.8-13.1) 10/13/18 02:19 INR 1.1 10/13/18 02:19 APTT 29.4 Seconds (25.6-37.1) 10/13/18 02:19 - Constitutional Appears: Well, Non-toxic - Head Exam Head Exam: ATRAUMATIC, NORMOCEPHALIC - Eye Exam Pupil Exam: PERRL - Respiratory Exam Respiratory Exam: Clear to Ausculation Bilateral - Cardiovascular Exam Cardiovascular Exam: RRR, +S1, +S2 - GI/Abdominal Exam GI & Abdominal Exam: Soft. absent: Tenderness - Extremities Exam Extremities Exam: Normal Inspection - Neurological Exam Neurological Exam: Alert, Awake, Oriented x3 - Psychiatric Exam Psychiatric exam: Normal Affect, Normal Mood - Skin Skin Exam: Dry, Normal Color, Warm Assessment and Plan - Assessment and Plan (Free Text) Plan: 83F w/ PMH recurrent syncopal episodes, s/p pacemaker; Cardiology consulted for evaluation of chest pain. ECHO w/ normal LVEF / normal diastolic findings Troponins negative NST results pending at this time; If ischemia present will cath patient at [place]. Will tentatively plan for catheterization at this time. Start Cozaar Continue; Statin Coreg Plavix Further reccs per Dr. Briseno Below
--- NOTE | 2018-10-15 12:01 | CP.PCM.PN ---
Subjective - Date & Time of Evaluation Date of Evaluation: 10/15/18 Time of Evaluation: 09:30 - Subjective Subjective: NO CHEST PAIN Objective - Vital Signs/Intake and Output Vital Signs (last 24 hours): Temp Pulse Resp BP Pulse Ox 97.6 F 66 18 172/81 H 97 10/15/18 07:57 10/15/18 07:57 10/15/18 07:57 10/15/18 07:57 10/15/18 07:57 - Medications Medications: Current Medications Acetaminophen (Tylenol 325mg Tab) 650 mg PO Q6 PRN PRN Reason: Pain, moderate (4-7) Last Admin: 10/15/18 05:23 Dose: 650 mg Atorvastatin Calcium (Lipitor) 40 mg PO DAILY [facility] Last Admin: 10/14/18 09:10 Dose: 40 mg Carvedilol (Coreg) 6.25 mg PO Q12 [facility] Last Admin: 10/14/18 21:14 Dose: 6.25 mg Clopidogrel Bisulfate (Plavix) 75 mg PO DAILY [facility] Last Admin: 10/14/18 09:10 Dose: 75 mg Enoxaparin Sodium (Lovenox) 40 mg SC DAILY [facility]; Protocol Last Admin: 10/14/18 09:10 Dose: 40 mg Famotidine (Pepcid) 20 mg PO DAILY [facility] Last Admin: 10/14/18 13:11 Dose: 20 mg Levothyroxine Sodium (Synthroid) 88 mcg PO DAILY@0630 [facility] Last Admin: 10/15/18 06:07 Dose: 88 mcg Losartan Potassium (Cozaar) 25 mg PO DAILY [facility] Nitroglycerin (Nitro-Bid 2% Oint) 1 ea TOP Q6 [facility] Last Admin: 10/15/18 04:30 Dose: 1 ea Pantoprazole Sodium (Protonix Ec Tab) 40 mg PO DAILY [facility] Last Admin: 10/14/18 09:10 Dose: 40 mg Fluticasone/Salmeterol (Advair Diskus 250/50) 1 puff IH Q12 [facility] Last Admin: 10/14/18 21:13 Dose: 1 puff - Labs Labs: 10/14/18 04:50 10/14/18 04:50 PT 12.1 Seconds (9.8-13.1) 10/13/18 02:19 INR 1.1 10/13/18 02:19 APTT 29.4 Seconds (25.6-37.1) 10/13/18 02:19 - Respiratory Exam Respiratory Exam: Clear to Ausculation Bilateral - Cardiovascular Exam Cardiovascular Exam: REGULAR RHYTHM, +S1, +S2 - Additional Findings Additional findings: CT OF CHEST WITHOUT ANY ACUTE PATHOLOGY Assessment and Plan - Assessment and Plan (Free Text) Assessment: HUGO PAIN HYPERTENSION HYPERLIPIDEMIA COPD Plan: PHARMACOLOGICAL STRESS TEST TODAY
[2018-10-15] MEDS ORDERED: Oxycodone/Acetaminophen 5/325 mg Tab PO STA (12:33)
[2018-10-15] MEDS: Fluticasone-Salmeterol 250-50mcg Diskus IH SCH ×2 (13:22→21:26)
[2018-10-15] MEDS: Pantoprazole 40 mg EC Tab PO SCH (13:29)
[2018-10-15] MEDS: Enoxaparin 40 mg Syringe SC SCH (13:31)
--- NOTE | 2018-10-15 16:22 | RAD ---
Date of service: 10/15/2018 PROCEDURE: Right Foot Radiographs. HISTORY: FALL WITH RIGHT FOOT PAIN COMPARISON: None. FINDINGS: BONES: Radiodensity related to sock obscures fine bony and soft-tissue detail. No definite acute fracture or dislocation appreciable. Hammertoe deformities are seen throughout the 2nd through 5th digits with degenerative changes seen throughout the foot on a moderate basis diffusely. This comprised of joint space narrowing and articular cortical sclerosis. Diffuse osteopenia suggests osteoporosis. No subluxation or dislocation appreciated throughout. JOINTS: As above. SOFT TISSUES: No gross soft tissue abnormality appreciable however sock obscures soft tissue detail throughout. OTHER FINDINGS: None. IMPRESSION: No acute fracture or dislocation right foot. Hammertoe deformities are seen throughout the 2nd through 5th digits. Moderate diffuse degenerative disease throughout the right foot.
--- NOTE | 2018-10-15 17:31 | CP.PCM.HP ---
History of Present Illness - History of Present Illness History of Present Illness: CC: Chest Pain History of Present Illness: An 83 year old female with extensive pmhx presents to the ED for evaluation of worsening right inguinal pain for the past week s/p falling off her bed to the floor, worse with ambulation. In the past 24 hours, patient notes taking extra strength Tylenol every four hours, and tonight developed chest pain which she attributed to taking too much Tylenol. She called EMS who treated pt with nitroglycerin and aspirin in the field, despite patient having a known aspirin allergy, not apparent to the medics. Cardiology consult was done, and discussed with the group director who stated that since the chest pain is typical patient may need cardiac cath. Interventional Cardiology consulted who recommended at least cardiac stress test before discharge. Present on Admission - Present on Admission Any Indicators Present on Admission: No Review of Systems - Review of Systems All systems: reviewed and no additional remarkable complaints except Review of Systems: as per HPI Past Patient History - Infectious Disease Hx of Infectious Diseases: None - Tetanus Immunizations Tetanus Immunization: Unknown - Past Medical History & Family History Past Medical History?: Yes Past Family History: Reviewed and not pertinent - Past Social History Smoking Status: Never Smoked Alcohol: None Drugs: Denies - CARDIAC Hx Atrial Fibrillation: Yes Hx Congestive Heart Failure: No Hx Hypercholesterolemia: Yes Hx Hypertension: Yes Hx Pacemaker: Yes - PULMONARY Hx Asthma: Yes Hx Chronic Obstructive Pulmonary Disease (COPD): Yes - NEUROLOGICAL Hx Seizures: Yes (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) - HEENT Hx HEENT Problems: Yes Hx Deafness: Yes (wears hearing aid on right) Other/Comment: implants both eyes, loss of hearing bilaterally - RENAL Hx Chronic Kidney Disease: Yes - ENDOCRINE/METABOLIC Hx Hypothyroidism: Yes - HEMATOLOGICAL/ONCOLOGICAL Hx Human Immunodeficiency Virus (HIV): No - INTEGUMENTARY Hx Dermatological Problems: No Hx Basil Cell: Yes (nose) - MUSCULOSKELETAL/RHEUMATOLOGICAL Hx Arthritis: Yes - GASTROINTESTINAL Hx Gastritis: Yes - GENITOURINARY/GYNECOLOGICAL Hx Genitourinary Disorders: No Hx Incontinence: Yes - PSYCHIATRIC Hx Psychophysiologic Disorder: No Hx Substance Use: No - SURGICAL HISTORY Hx Appendectomy: Yes Hx Cholecystectomy: Yes Hx Tonsillectomy: Yes - ANESTHESIA Hx Anesthesia: Yes Hx Anesthesia Reactions: Yes Hx Malignant Hyperthermia: No Meds Home Medications: Home Medication List Medication Instructions Recorded Confirmed Type Atorvastatin [Lipitor] 40 mg PO DAILY #30 tab 10/16/18 Rx Clopidogrel [Plavix] 75 mg PO DAILY #30 tab 10/16/18 Rx Losartan [Cozaar] 25 mg PO DAILY #30 tab 10/16/18 Rx Allergies/Adverse Reactions: Allergies Allergy/AdvReac Type Severity Reaction Status Date / Time albuterol Allergy RASH Verified 10/13/18 04:22 aspirin Allergy RASH Verified 10/13/18 04:22 iodine Allergy RASH Verified 10/13/18 04:22 Penicillins Allergy RASH Verified 10/13/18 04:22 ammonia AdvReac VOMITING Verified 10/13/18 04:22 Physical Exam - Constitutional Appears: Well, No Acute Distress - Head Exam Head Exam: ATRAUMATIC, NORMAL INSPECTION, NORMOCEPHALIC - Eye Exam Eye Exam: EOMI, Normal appearance, PERRL Pupil Exam: NORMAL ACCOMODATION, PERRL - ENT Exam ENT Exam: Mucous Membranes Moist, Normal Exam - Neck Exam Neck exam: Positive for: Normal Inspection - Respiratory Exam Respiratory Exam: Clear to Auscultation Bilateral, NORMAL BREATHING PATTERN - Cardiovascular Exam Cardiovascular Exam: REGULAR RHYTHM, +S1, +S2 - GI/Abdominal Exam GI & Abdominal Exam: Normal Bowel Sounds, Soft. absent: Tenderness - Extremities Exam Extremities exam: Positive for: normal capillary refill (The), normal inspection - Back Exam Back exam: NORMAL INSPECTION - Neurological Exam Neurological exam: Alert, CN II-XII Intact, Normal Gait, Oriented x3, Reflexes Normal - Psychiatric Exam Psychiatric exam: Normal Affect, Normal Mood - Skin Skin Exam: Dry, Intact, Normal Color, Warm Results - Vital Signs Recent Vital Signs: Last Vital Signs Temp 97.7 F 10/15/18 15:45 Pulse 63 10/15/18 15:45 Resp 17 10/15/18 15:45 BP 173/74 H 10/15/18 15:45 Pulse Ox 98 10/15/18 15:45 - Labs Result Diagrams: 10/16/18 04:25 10/16/18 04:25 Labs: Laboratory Results - last 24 hr 10/15/18 10/15/18 10/15/18 04:30 04:30 16:18 Troponin I < 0.0120 Free T4 1.19 Free T3 pg/mL 2.51 L - EKG Data EKG Interpreted by: Myself EKG shows normal: Sinus rhythm Rate: Normal - EKG Data EKG comments: LVH - Imaging and Cardiology Chest x-ray Status: Report reviewed by me Additional comment: HISTORY: chest pain COMPARISON: Chest x-ray performed 10/27/17 TECHNIQUE: Chest, one view. FINDINGS: LUNGS: Chronic appearing interstitial markings. Bilateral hilar prominence. Patchy medial right upper lobe atelectasis or infiltrate. Please note that chest x-ray has limited sensitivity for the detection of pulmonary masses. PLEURA: No significant pleural effusion identified. No definite pneumothorax . CARDIOVASCULAR: Dual lead left-sided pacemaker. Cardiomegaly. Dense atherosclerotic calcifications of an ectatic aorta. OSSEOUS STRUCTURES: Osseous demineralization. Degenerative changes. VISUALIZED UPPER ABDOMEN: Unremarkable. OTHER FINDINGS: None. IMPRESSION: Patchy medial right upper lobe atelectasis or infiltrate. Chronic appearing interstitial markings. Bilateral hilar prominence. Assessment & Plan (1) Chest pain Status: Acute Priority: High (2) Dyspnea Status: Chronic (3) Hypertension Status: Chronic (4) Hypothyroid Status: Chronic - Assessment and Plan (Free Text) Plan: ASA Metoprolol O2 Via [place] Serial trop and EKG PST Cardiology Consulted
--- NOTE | 2018-10-15 17:32 | CP.PCM.PN ---
Subjective - Date & Time of Evaluation Date of Evaluation: 10/15/18 Time of Evaluation: 17:15 Objective - Vital Signs/Intake and Output Vital Signs (last 24 hours): Temp Pulse Resp BP Pulse Ox 97.7 F 63 17 173/74 H 98 10/15/18 15:45 10/15/18 15:45 10/15/18 15:45 10/15/18 15:45 10/15/18 15:45 - Medications Medications: Current Medications Acetaminophen (Tylenol 325mg Tab) 650 mg PO Q6 PRN PRN Reason: Pain, moderate (4-7) Last Admin: 10/15/18 05:23 Dose: 650 mg Atorvastatin Calcium (Lipitor) 40 mg PO DAILY [facility] Last Admin: 10/15/18 13:30 Dose: 40 mg Carvedilol (Coreg) 6.25 mg PO Q12 [facility] Last Admin: 10/15/18 13:29 Dose: 6.25 mg Clopidogrel Bisulfate (Plavix) 75 mg PO DAILY [facility] Last Admin: 10/15/18 13:30 Dose: 75 mg Enoxaparin Sodium (Lovenox) 40 mg SC DAILY [facility]; Protocol Last Admin: 10/15/18 13:31 Dose: 40 mg Famotidine (Pepcid) 20 mg PO DAILY [facility] Last Admin: 10/15/18 13:29 Dose: 20 mg Levothyroxine Sodium (Synthroid) 88 mcg PO DAILY@0630 [facility] Last Admin: 10/15/18 06:07 Dose: 88 mcg Losartan Potassium (Cozaar) 25 mg PO DAILY [facility] Last Admin: 10/15/18 13:38 Dose: 25 mg Nitroglycerin (Nitro-Bid 2% Oint) 1 ea TOP Q6 [facility] Last Admin: 10/15/18 13:36 Dose: 1 ea Ondansetron HCl (Zofran Inj) 4 mg IVP Q4 PRN PRN Reason: Nausea/Vomiting Last Admin: 10/15/18 13:19 Dose: 4 mg Pantoprazole Sodium (Protonix Ec Tab) 40 mg PO DAILY [facility] Last Admin: 10/15/18 13:29 Dose: 40 mg Fluticasone/Salmeterol (Advair Diskus 250/50) 1 puff IH Q12 [facility] Last Admin: 10/15/18 13:22 Dose: 1 puff - Labs Labs: 10/14/18 04:50 10/14/18 04:50 PT 12.1 Seconds (9.8-13.1) 10/13/18 02: INR 1.1 10/13/18 02: APTT 29.4 Seconds (25.6-37.1) 10/13/18 02:19
--- NOTE | 2018-10-15 17:32 | CP.PCM.PN ---
Subjective - Date & Time of Evaluation Date of Evaluation: 10/14/18 Time of Evaluation: 17:35 Objective - Vital Signs/Intake and Output Vital Signs (last 24 hours): Temp Pulse Resp BP Pulse Ox 97.7 F 63 17 173/74 H 98 10/15/18 15:45 10/15/18 15:45 10/15/18 15:45 10/15/18 15:45 10/15/18 15:45 - Medications Medications: Current Medications Acetaminophen (Tylenol 325mg Tab) 650 mg PO Q6 PRN PRN Reason: Pain, moderate (4-7) Last Admin: 10/15/18 05:23 Dose: 650 mg Atorvastatin Calcium (Lipitor) 40 mg PO DAILY [facility] Last Admin: 10/15/18 13:30 Dose: 40 mg Carvedilol (Coreg) 6.25 mg PO Q12 [facility] Last Admin: 10/15/18 13:29 Dose: 6.25 mg Clopidogrel Bisulfate (Plavix) 75 mg PO DAILY [facility] Last Admin: 10/15/18 13:30 Dose: 75 mg Enoxaparin Sodium (Lovenox) 40 mg SC DAILY [facility]; Protocol Last Admin: 10/15/18 13:31 Dose: 40 mg Famotidine (Pepcid) 20 mg PO DAILY [facility] Last Admin: 10/15/18 13:29 Dose: 20 mg Levothyroxine Sodium (Synthroid) 88 mcg PO DAILY@0630 [facility] Last Admin: 10/15/18 06:07 Dose: 88 mcg Losartan Potassium (Cozaar) 25 mg PO DAILY [facility] Last Admin: 10/15/18 13:38 Dose: 25 mg Nitroglycerin (Nitro-Bid 2% Oint) 1 ea TOP Q6 [facility] Last Admin: 10/15/18 13:36 Dose: 1 ea Ondansetron HCl (Zofran Inj) 4 mg IVP Q4 PRN PRN Reason: Nausea/Vomiting Last Admin: 10/15/18 13:19 Dose: 4 mg Pantoprazole Sodium (Protonix Ec Tab) 40 mg PO DAILY [facility] Last Admin: 10/15/18 13:29 Dose: 40 mg Fluticasone/Salmeterol (Advair Diskus 250/50) 1 puff IH Q12 [facility] Last Admin: 10/15/18 13:22 Dose: 1 puff - Labs Labs: 10/14/18 04:50 10/14/18 04:50 PT 12.1 Seconds (9.8-13.1) 10/13/18 02: INR 1.1 10/13/18 02: APTT 29.4 Seconds (25.6-37.1) 10/13/18 02:19
--- NOTE | 2018-10-15 18:01 | RAD ---
Date of service: 10/15/2018 PROCEDURE: Right Knee Radiographs. HISTORY: FALL WITH RIGHT KNEE PAIN COMPARISON: None. FINDINGS: BONES: There is severe diffuse bone demineralization. No acute displaced fracture. Bone alignment is normal. JOINTS: There is m moderate tricompartmental degenerative osteoarthrosis with reduced joint spaces, marginal osteophytes and tibial spiking, worse in the lateral compartment. JOINT EFFUSION: There is a moderate suprapatellar joint effusion. OTHER FINDINGS: None. IMPRESSION: No acute displaced fracture or dislocation. Please note occult fractures cannot be excluded on plain radiographs. If there is a persistent clinical concern, CT scan/MRI of the knee may be performed for further evaluation if clinically indicated. Moderate tricompartmental degenerative osteoarthrosis, worse in the lateral compartment. Moderate suprapatellar joint effusion.
[2018-10-16] MEDS: Nitroglycerin 2% Ointment Foilpak UD TOP SCH ×2 (04:00→09:29)
[2018-10-16 05:35] VITALS: RESP 18
[2018-10-16] MEDS: Levothyroxine 88 MCG TAB PO SCH (05:39)
[2018-10-16 05:54] LABS: HEMOGLOBIN 13.2 g/dL (12.0-16.0); MEAN CELL VOLUME 92.3 fl (81.0-99.0); MEAN CORPUSCULAR HEMOGLOBIN 31.4 pg (27.0-31.0); RBC 4.22 Mil/uL (3.80-5.20); RED CELL DISTRIBUTION WIDTH 13.2 % (11.5-14.5); WHITE BLOOD COUNT 6.7 K/uL (4.8-10.8)
[2018-10-16 06:06] LABS: CALCIUM 8.7 mg/dL (8.4-10.2)
[2018-10-16] MEDS: Fluticasone-Salmeterol 250-50mcg Diskus IH SCH (09:28)
[2018-10-16] MEDS: Enoxaparin 40 mg Syringe SC SCH (09:29)
[2018-10-16] MEDS: Pantoprazole 40 mg EC Tab PO SCH (09:31)
--- NOTE | 2018-10-16 09:59 | CP.PCM.PN ---
Subjective - Date & Time of Evaluation Date of Evaluation: 10/16/18 Time of Evaluation: 09:45 - Subjective Subjective: NO CHEST PAIN Objective - Vital Signs/Intake and Output Vital Signs (last 24 hours): Temp Pulse Resp BP Pulse Ox 98.5 F 75 18 136/77 98 10/16/18 08:00 10/16/18 09:30 10/16/18 08:00 10/16/18 09:30 10/16/18 08:00 - Medications Medications: Current Medications Acetaminophen (Tylenol 325mg Tab) 650 mg PO Q6 PRN PRN Reason: Pain, moderate (4-7) Last Admin: 10/15/18 05:23 Dose: 650 mg Atorvastatin Calcium (Lipitor) 40 mg PO DAILY [facility] Last Admin: 10/16/18 09:29 Dose: 40 mg Carvedilol (Coreg) 6.25 mg PO Q12 [facility] Last Admin: 10/16/18 09:30 Dose: 6.25 mg Clopidogrel Bisulfate (Plavix) 75 mg PO DAILY [facility] Last Admin: 10/16/18 09:29 Dose: 75 mg Enoxaparin Sodium (Lovenox) 40 mg SC DAILY [facility]; Protocol Last Admin: 10/16/18 09:29 Dose: 40 mg Famotidine (Pepcid) 20 mg PO DAILY [facility] Last Admin: 10/16/18 09:29 Dose: 20 mg Levothyroxine Sodium (Synthroid) 88 mcg PO DAILY@0630 [facility] Last Admin: 10/16/18 05:39 Dose: 88 mcg Losartan Potassium (Cozaar) 25 mg PO DAILY [facility] Last Admin: 10/16/18 09:30 Dose: 25 mg Nitroglycerin (Nitro-Bid 2% Oint) 1 ea TOP Q6 [facility] Last Admin: 10/16/18 09:29 Dose: 1 ea Ondansetron HCl (Zofran Inj) 4 mg IVP Q4 PRN PRN Reason: Nausea/Vomiting Last Admin: 10/15/18 13:19 Dose: 4 mg Pantoprazole Sodium (Protonix Ec Tab) 40 mg PO DAILY [facility] Last Admin: 10/16/18 09:31 Dose: 40 mg Fluticasone/Salmeterol (Advair Diskus 250/50) 1 puff IH Q12 [facility] Last Admin: 10/16/18 09:28 Dose: 1 puff - Labs Labs: 10/16/18 04:25 10/16/18 04:25 PT 12.1 Seconds (9.8-13.1) 10/13/18 02:19 INR 1.1 10/13/18 02:19 APTT 29.4 Seconds (25.6-37.1) 10/13/18 02:19 - Respiratory Exam Respiratory Exam: Clear to Ausculation Bilateral - Cardiovascular Exam Cardiovascular Exam: REGULAR RHYTHM, +S1, +S2 - Extremities Exam Additional comments: NO LE EDEMA - Additional Findings Additional findings: PHARMACOLOGICAL STRESS TEST SHOWS NORMAL PERFUSION CT OF RIGHT HIP NO FRACTURE OR DISLOCATION RIGHT KNEE AND ANKLE X-RAYS WITH OA, NO FRACTURES OR DISLOCATIONS Assessment and Plan - Assessment and Plan (Free Text) Assessment: CHEST PAIN ON ADMISSION WITH NEGATIVE CARDIAC MANLEY HYPERTENSION HYPERLIPIDEMIA COPD Plan: CONTINUE CAEVEDILOL, LOSARTAN AND ATORVASTATIN OK TO DISCHARGE PATIENT FROM CARDIAC [facility]IEWPOINT
--- NOTE | 2018-10-16 10:01 | CARD ---
APPROVED REPORT Date of service: 10/15/2018 EKG Measurement Heart [id number] <Conclusion> Normal sinus rhythm Prolonged QT Abnormal ECG
[2018-10-16 12:17] VITALS: BP 146/67; PULSE 61; TEMP 97.9; O2SAT 95
--- NOTE | 2018-10-16 13:10 | CP.PCM.PCO ---
Assessment & Plan - Assessment and Plan (Free Text) Assessment: pt. seen and examined doing well
--- NOTE | 2018-10-16 17:06 | CARD ---
APPROVED REPORT Date of service: 10/15/2018 Protocol: LEXISCAN Test Type: Stress Nuclear Medications: Atorvastatin 40mg, Coreg 6.25mg, Clopidogrel 75mg, Lovenox 40mg, Levothyroxine 88mcg, Pantoprazoe 40mg, Advair 250/50 Medical History: Hypertension, SSS with Recurrent Syncope, Pacemaker, Hyperlipidemia, Asthma, GERDS, Arthtitis, Right groin pain, A Fib. Bronchitis COPD, Seizure x1 1970 dur to allergic, Deafness wears hearing aid, Hypothyroidism, Arthritis, Fractures right hip and shoulder, Gastritis, Incontinence, Appendectomy, Target HR: 139 bpm Resting ECG: normal Resting Heart Rate: 63 bpm Resting Blood Pressure: 158/108mmHg submaximum (85%): 118 bpm TEST SUMMARY PREINJECTPRE-INJEC22:[id number]/108.0. [id number]/108.0. INJECTIONNS FLUSH00:[id number]/108.0. INJECTIONNUC MED00:[id number]/110.0. [id number]/90.0. PROCEDURE Pharmacologic stress testing was performed using 0.4mg per 5ml of regadenoson given intravenously over 7-10 seconds. POST EXERCISE Reason for Termination: Fatigue Target HR: No Max HR: 68 bpm 64% of Maximum Predicted HR: 139 bpm Exercise duration: 01:00 min:sec, 0 Stage Exercise capacity: 1.0METs Max Blood Pressure: 160/113mmHg Blood Pressure response to exercise: normal resting BP - exaggerated response Heart Rate response to exercise: appropriate Chest Pain: No, none Angina index: 0 Arrhythmia: No, none ST Change: No, none Deviation: 0 mm Clinical Indications Under Appropriate Use Criteria Patient has history of hyperlipidemia, hypertension, thyroid disease. She is scheduled for nuclear stress test Stress EKG Interpretation No significant st or t waves changes noticed Arterial hypertension noticed. RESTING ECG Rhythm: Sinus Conduction: Normal Arrhythmias: None Repolarization: Normal STRESS ECG Rhythm: Sinus Conduction: Normal Arrhythmias: None Repolarization: Normal ST-Segment changes: none EXAM: Myocardial Perfusion REST/STRESS Image QualityGood Imaging Protocol The imaging protocol used to acquire images was Rest Tc-99m/stress Tc-99m 1 day Rest Spect myocardial perfusion imaging was performed in supine position 160 minutes following the injection of 10 mCi of Tc-99 Myoview. Time of rest injection: 8:20 Time of rest imagin:03 At peak stress, the patient was injected intravenously with 30mCi of Tc-99 tetrofosmin after an infusion time of minutes and seconds. Time of stress injection: 11:10 Time of stress imagin:29 Gated Stress Spect was performed 200 minutes after intravenous Tc-99 Myoview injection. The images were gated to evaluate regional wall motion and calculate ventricular ejection fraction. NUCLEAR IMAGE INTERPRETATION Study quality was excellent. Left Ventricular size was Enlarged at Rest and Stress. Lung uptake was Normal. Left Ventricular ejection fraction is %. LV Perfusion No LV PERFUSION DEFECT NOTICED. Wall Motion Mild global wall motion LVET decreased to 56%. Mild enlargement of the left ventricle. Arterial hypertension noticed CONCLUSION 1. Normal perfusion nuclear stress test 2. Abnormal LV size with minor global hypokinesia of the left ventricle. 3. Arterial hypertension at exercises Recommendation Medical therpay and agressive blood pressure control
--- NOTE | 2018-10-16 22:56 | CP.PCM.DIS ---
Provider - Provider Date of Admission: 10/15/18 14:50 Attending physician: Judy Kirkpatrick MD Consults: 10/13/18 06:11 Cardiology Consult Stat Comment: am consultation Consulting Provider: Dl Salgado Consulting Physician: Dl Salgado Reason for Consult: chest pain 10/13/18 09:37 Pastoral Care Referral Routine Comment: Physician Instructions: Reason For Exam: Advance directive 10/14/18 17:23 Cardiology Consult Routine Comment: Consulting Provider: Jose Cruz Briseno Consulting Physician: Jose Cruz Briseno Reason for Consult: Typical Chest Pain Time Spent in preparation of Discharge (in minutes): 25 Diagnosis - Discharge Diagnosis (1) Afib Status: Chronic Priority: High (2) Chest pain Status: Acute Priority: High Comment: ACS ruled out (3) DJD (degenerative joint disease) Status: Acute Priority: High (4) Dyspnea Status: Chronic (5) Hypertension Status: Chronic (6) Near syncope Status: Resolved Hospital Course - Lab Results Lab Results: Most Recent Lab Values WBC 6.7 K/uL (4.8-10.8) 10/16/18 04:25 RBC 4.22 Mil/uL (3.80-5.20) 10/16/18 04:25 Hgb 13.2 g/dL (12.0-16.0) 10/16/18 04:25 Hct 38.9 % (34.0-47.0) 10/16/18 04:25 MCV 92.3 fl (81.0-99.0) 10/16/18 04:25 MCH 31.4 pg (27.0-31.0) H 10/16/18 04:25 MCHC 34.0 g/dL (33.0-37.0) 10/16/18 04:25 RDW 13.2 % (11.5-14.5) 10/16/18 04:25 Plt Count 139 K/uL (130-400) 10/16/18 04:25 MPV 10.4 fl (7.2-11.7) 10/14/18 04:50 Neut % (Auto) 39.9 % (50.0-75.0) L 10/14/18 04:50 Lymph % (Auto) 44.9 % (20.0-40.0) H 10/14/18 04:50 [place] % (Auto) 10.1 % (0.0-10.0) H 10/14/18 04:50 Eos % (Auto) 4.0 % (0.0-4.0) 10/14/18 04:50 Baso % (Auto) 1.1 % (0.0-2.0) 10/14/18 04:50 Neut # (Auto) 2.1 K/uL (1.8-7.0) 10/14/18 04:50 Lymph # (Auto) 2.3 K/uL (1.0-4.3) 10/14/18 04:50 [place] # (Auto) 0.5 K/uL (0.0-0.8) 10/14/18 04:50 Eos # (Auto) 0.2 K/uL (0.0-0.7) 10/14/18 04:50 Baso # (Auto) 0.1 K/uL (0.0-0.2) 10/14/18 04:50 Neutrophils % (Manual) 59 % (42-75) 10/13/18 02:19 Lymphocytes % (Manual) 26 % (20-50) 10/13/18 02:19 Reactive Lymphs % 2 % (0-0) H 10/13/18 02:19 Monocytes % (Manual) 9 % (0-10) 10/13/18 02:19 Eosinophils % (Manual) 3 % (0-7) 10/13/18 02:19 Basophils % (Manual) 1 % (0-2) 10/13/18 02:19 Platelet Estimate Normal (NORMAL) 10/13/18 02:19 Anisocytosis (manual) Slight 10/13/18 02:19 Ovalocytes Slight 10/13/18 02:19 PT 12.1 Seconds (9.8-13.1) 10/13/18 02:19 INR 1.1 10/13/18 02:19 APTT 29.4 Seconds (25.6-37.1) 10/13/18 02:19 Sodium 140 mmol/l (132-148) 10/16/18 04:25 Potassium 3.8 MMOL/L (3.6-5.0) 10/16/18 04:25 Chloride 100 mmol/L (98-107) 10/16/18 04:25 Carbon Dioxide 29 mmol/L (22-30) 10/16/18 04:25 Anion Gap 15 (10-20) 10/16/18 04:25 BUN 25 mg/dl (7-17) H 10/16/18 04:25 Creatinine 1.2 mg/dl (0.7-1.2) 10/16/18 04:25 Est GFR ( Amer) 52 10/16/18 04:25 Est GFR (Non-Af Amer) 43 10/16/18 04:25 Random Glucose 86 mg/dL (65-105) 10/16/18 04:25 Calcium 8.7 mg/dL (8.4-10.2) 10/16/18 04:25 Total Bilirubin 0.8 mg/dl (0.2-1.3) 10/14/18 04:50 AST 26 U/L (14-36) 10/14/18 04:50 ALT 20 U/L (9-52) 10/14/18 04:50 Alkaline Phosphatase 62 U/L (38-126) 10/14/18 04:50 Troponin I < 0.0120 ng/mL (0.00-0.120) 10/15/18 16:18 NT-Pro-B Natriuret Pep 441 pg/ml (0-900) 10/13/18 02:19 Total Protein 6.2 G/DL (6.3-8.2) L 10/14/18 04:50 Albumin 3.1 g/dL (3.5-5.0) L 10/14/18 04:50 Globulin 3.1 gm/dL (2.2-3.9) 10/14/18 04:50 Albumin/Globulin Ratio 1.0 (1.0-2.1) 10/14/18 04:50 Triglycerides 95 mg/DL (0-149) 10/14/18 04:50 Cholesterol 146 mg/dL (0-199) 10/14/18 04:50 LDL Cholesterol Direct 85 mg/dL (0-129) 10/14/18 04:50 HDL Cholesterol 33 MG/DL (30-70) 10/14/18 04:50 Free T4 1.19 ng/dL (0.78-2.19) 10/15/18 04:30 Free T3 pg/mL 2.51 pg/mL (2.77-5.27) L 10/15/18 04:30 TSH 3rd Generation 11.10 mIU/ML (0.46-4.68) H 10/14/18 04:50 Acetaminophen < 10.0 ug/ml (10.0-30.0) L 10/13/18 02:19 Discharge Exam - Head Exam Head Exam: ATRAUMATIC, NORMOCEPHALIC Discharge Plan - Discharge Medications Prescriptions: Losartan [Cozaar] 25 mg PO DAILY #30 tab Atorvastatin [Lipitor] 40 mg PO DAILY #30 tab Clopidogrel [Plavix] 75 mg PO DAILY #30 tab - Follow Up Plan Condition: FAIR Disposition: HOME/ ROUTINE Instructions: Chest Pain (DC) Additional Instructions: follow up with in 1 week Referrals: Dl Salgado MD [Staff Provider] - Judy Kirkpatrick MD [Staff Provider] - Daivd Robles MD [Family Provider] -
== END 2018-10-16 14:42 | disposition home or self-care (01) | DRG 313 ==
LOC: H.ER 01:18 → H.ERHOLD 04:22 → H.TEL 06:20 → OBSVTOIN 10-15 14:50
PROVIDERS: ADMIT Internal Medicine; ATTEND Internal Medicine
DX: R07.9 Chest pain, unspecified (principal); I48.2 Chronic atrial fibrillation; Z79.01 Long term (current) use of anticoagulants; E03.9 Hypothyroidism, unspecified; E78.00 Pure hypercholesterolemia, unspecified; E78.5 Hyperlipidemia, unspecified; H91.93 Unspecified hearing loss, bilateral; I12.9 Hypertensive chronic kidney disease with stage 1 through stage 4 chronic kidney disease, or unspecified chronic kidney disease; J44.9 Chronic obstructive pulmonary disease, unspecified; K21.9 Gastro-esophageal reflux disease without esophagitis; M19.90 Unspecified osteoarthritis, unspecified site; N18.9 Chronic kidney disease, unspecified; Z79.02 Long term (current) use of antithrombotics/antiplatelets; Z79.899 Other long term (current) drug therapy; Z90.49 Acquired absence of other specified parts of digestive tract; Z91.81 History of falling; Z95.0 Presence of cardiac pacemaker; Z96.641 Presence of right artificial hip joint; Z97.4 Presence of external hearing-aid; J40 Bronchitis, not specified as acute or chronic; K29.70 Gastritis, unspecified, without bleeding; R32 Unspecified urinary incontinence; M79.671 Pain in right foot; R10.31 Right lower quadrant pain

== ENCOUNTER 2018-12-03 10:16 | Emergency (ER) | payer MEDICARE, OTHER ==
[2018-12-03 10:18] VITALS: BMI 27.8
--- NOTE | 2018-12-03 11:16 | RAD ---
Date of service: 12/03/2018 HISTORY: SOB COMPARISON: 10/13/2018 TECHNIQUE: 1 view obtained. FINDINGS: LUNGS: No active pulmonary disease. PLEURA: No significant pleural effusion identified, no pneumothorax apparent. CARDIOVASCULAR: No aortic atherosclerotic calcification present. Normal cardiac size. No congestive change. Permanent pacemaker. OSSEOUS STRUCTURES: No significant abnormalities. VISUALIZED UPPER ABDOMEN: Normal. OTHER FINDINGS: None. IMPRESSION: No active disease.
[2018-12-03 11:56] LABS: BASO % 0.7 % (0.0-2.0); EOS # 0.1 K/uL (0.0-0.7); EOS % 1.9 % (0.0-4.0); HEMOGLOBIN 13.4 g/dL (12.0-16.0); LYMPH # 1.4 K/uL (1.0-4.3); LYMPH % 20.3 % (20.0-40.0); MEAN CELL VOLUME 93.3 fl (81.0-99.0); MEAN CORPUSCULAR HGB CONC 33.2 g/dL (33.0-37.0); MEAN PLATELET VOLUME 10.6 fl (7.2-11.7); MONO # 0.5 K/uL (0.0-0.8); MONO % 7.5 % (0.0-10.0); NEUT # 4.9 K/uL (1.8-7.0); NEUT % 69.6 % (50.0-75.0); RBC 4.33 Mil/uL (3.80-5.20); RED CELL DISTRIBUTION WIDTH 13.4 % (11.5-14.5)
[2018-12-03 12:06] LABS: INR 1.1; PROTHROMBIN TIME 12.8 Seconds (9.8-13.1)
[2018-12-03 12:09] LABS: ALB/GLOB RATIO 1.2 (1.0-2.1); ALBUMIN 3.6 g/dL (3.5-5.0); ALT/SGPT 17 U/L (9-52); AST/SGOT 22 U/L (14-36); BLOOD UREA NITROGEN 22 mg/dl (7-17); GFR NON-AFRICAN AMERICAN 48; PARTIAL THROMBOPLASTIN TIME 28.2 Seconds (25.6-37.1)
[2018-12-03 12:20] LABS: B-TYPE NATRIURETIC PEPTIDE 668 pg/ml (0-900)
--- NOTE | 2018-12-03 13:00 | CT ---
Date of service: 12/03/2018 PROCEDURE: CT HEAD WITHOUT CONTRAST. HISTORY: syncope COMPARISON: 07/25/2016 TECHNIQUE: Axial computed tomography images were obtained through the head/brain without intravenous contrast. Radiation dose: Total exam DLP = 782.69 mGy-cm. This CT exam was performed using one or more of the following dose reduction techniques: Automated exposure control, adjustment of the mA and/or kV according to patient size, and/or use of iterative reconstruction technique. FINDINGS: HEMORRHAGE: No intracranial hemorrhage. BRAIN: No mass effect or edema. Mild patchy periventricular and deep white matter lucency consistent with microvascular white matter ischemic change. No evidence of acute infarct. VENTRICLES: Unremarkable. No hydrocephalus. CALVARIUM: Unremarkable. PARANASAL SINUSES: Unremarkable as visualized. No significant inflammatory changes. MASTOID AIR CELLS: Unremarkable as visualized. No inflammatory changes. OTHER FINDINGS: None. IMPRESSION: Mild chronic white matter ischemic change. No intracranial mass, hemorrhage or evidence of acute infarct.
[2018-12-03 13:24] VITALS: RESP 20; O2SAT 98
--- NOTE | 2018-12-03 13:35 | ED PDOC ---
Syncope/Near Syncope/Dizziness Time Seen by Provider: 12/03/18 10:20 Chief Complaint (Nursing): Dizziness/Lightheaded Chief Complaint (Provider): I fainted History Per: Patient History/Exam Limitations: no limitations Onset/Duration Of Symptoms: Sudden Onset Current Symptoms Are (Timing): Better Activity At Onset Of Symptoms: Had Just Stood up Associated Symptoms Preceding Syncopal Episode: Lightheadedness Seizure Or Post-ictal Symptoms: None Possible Causative Factor(s): Other (prior hx syncope) Fall Associated With With Symptoms: No Injury As Result Of Fall Severity: Mild Additional Complaint(s): 83yo female hx pacemaker insertion, sick sinus syndrome, presents c/o fainting episode this morning preceded by generalized weakness. Denies head injury, chest pain, fever, urinary symptoms, SOB or cough. Known history of prior syncope. Admitted for chest pain last month, Dr Briseno and Dr Salgado saw patient. 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) Denies: Alzheimer's Disease, CHF, Dementia, HIV, Pneumonia, Pulmonary Embolism, Sleep Apnea, TIA - Surgical History Surgical History: Appendectomy, Cholecystectomy, Pacemaker, Tonsillectomy - Family History Family History: States: Unknown Family Hx - Living Arrangements Living Arrangements: Other ([employer]) - Social History Current smoker - smoking cessation education provided: No - Home Medications Home Medications: Ambulatory Orders Medication Instructions Recorded Acetaminophen [Tylenol Extra 1 tab PO BID PRN 10/13/18 Strength] Carvedilol [Coreg] 1 tab PO BID 10/13/18 Fluticasone/Salmeterol [Advair 1 puff INH BID 10/13/18 250-50 Diskus] Levothyroxine [Synthroid] 1 tab PO QAM 10/13/18 Pantoprazole Sodium [Protonix] 1 tab PO QAM 10/13/18 Atorvastatin [Lipitor] 40 mg PO DAILY #30 tab 10/16/18 Clopidogrel [Plavix] 75 mg PO DAILY #30 tab 10/16/18 Losartan [Cozaar] 25 mg PO DAILY #30 tab 10/16/18 - Allergies Allergies/Adverse Reactions: Allergies Allergy/AdvReac Type Severity Reaction Status Date / Time albuterol Allergy RASH Verified 10/13/18 04:22 aspirin Allergy RASH Verified 10/13/18 04:22 iodine Allergy RASH Verified 10/13/18 04:22 Penicillins Allergy RASH Verified 10/13/18 04:22 ammonia AdvReac VOMITING Verified 10/13/18 04:22 Review of Systems ROS Statement: Except As Marked, All Systems Reviewed And Found Negative Constitutional: Negative for: Fever Cardiovascular: Positive for: Palpitations. Negative for: Chest Pain Respiratory: Negative for: Shortness of Breath Gastrointestinal: Negative for: Abdominal Pain Genitourinary Female: Negative for: Dysuria Musculoskeletal: Negative for: Neck Pain Skin: Negative for: Rash, Lesions Neurological: Negative for: Weakness, Numbness Psych: Negative for: Anxiety Physical Exam - Reviewed Nursing Documentation Reviewed: Yes Vital Signs Reviewed: Yes - Physical Exam Appears: Positive for: Well, Non-toxic, No Acute Distress Head Exam: Positive for: ATRAUMATIC, NORMAL INSPECTION, NORMOCEPHALIC Skin: Positive for: Normal Color, Warm, DRY Eye Exam: Positive for: EOMI, Normal appearance, PERRL ENT: Positive for: Normal ENT Inspection Neck: Positive for: Normal, Painless ROM Cardiovascular/Chest: Positive for: Regular Rate, Rhythm Respiratory: Positive for: CNT, Normal Breath Sounds Pulses-Radial (L): 3+/4+ Pulses-Radial (R): 3+/4+ Gastrointestinal/Abdominal: Positive for: Soft. 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 Negative for: Lethargic, Listless, Motor/Sensory Deficits, Facial Droop - Laboratory Results Result Diagrams: 12/03/18 11:15 12/03/18 11:15 Lab Results: PT 12.8 Seconds (9.8-13.1) 12/03/18 11:15 INR 1.1 12/03/18 11:15 APTT 28.2 Seconds (25.6-37.1) 12/03/18 11:15 Troponin I < 0.0120 ng/mL (0.00-0.120) 12/03/18 11:15 NT-Pro-B Natriuret Pep 668 pg/ml (0-900) 12/03/18 11:15 Total Bilirubin 0.8 mg/dl (0.2-1.3) 12/03/18 11:15 AST 22 U/L (14-36) 12/03/18 11:15 ALT 17 U/L (9-52) 12/03/18 11:15 Alkaline Phosphatase 67 U/L (38-126) 12/03/18 11:15 Total Protein 6.7 G/DL (6.3-8.2) 12/03/18 11:15 Albumin 3.6 g/dL (3.5-5.0) 12/03/18 11:15 Globulin 3.1 gm/dL (2.2-3.9) 12/03/18 11:15 Albumin/Globulin Ratio 1.2 (1.0-2.1) 12/03/18 11:15 - ECG ECG: Positive for: Interpreted By Ne ECG Rhythm: Positive for: Sinus Bradycardia, Nonspecific Changes Interpretation Of Abn EKG: Qtc 492 Rate: 58 O2 Sat by Pulse Oximetry: 98 Pulse Ox Interpretation: Normal Medical Decision Making Medical Decision Making: workup for recurrent syncope in setting of prior known syncopal events with packemaker insertion labs reviewed, EKG reviewed D/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 States her meds have recently been adjusted, given known history of such, likely can be discharged Patient offered hospitalization/ further monitoring but feels better and wishes to be discharged. Disposition - Clinical Impression Clinical Impression: Syncope - Patient ED Disposition Is Patient to be Admitted: No - Disposition Referrals: Dl Salgado MD [Staff Provider] - David Robles MD [Medical Doctor] - Disposition: Routine/Home Disposition Time: 14:30 Condition: IMPROVED Additional Instructions: Followup with Dr Salgado and Dr Robles as directed. take medications as prior directed. See wedger machine and continue antibiotic cream and oral medication as prior directed. Instructions: Syncope (Fainting) Forms: [employer] (Faroese)
[2018-12-03 13:38] LABS: SQUAMOUS EPITHIAL 3 /hpf (0-5); URINE BACTERIA RARE (<OCC); URINE BILIRUBIN SMALL (NEGATIVE); URINE BLOOD SMALL (NEGATIVE); URINE CLARITY CLOUDY (Clear); URINE COLOR AMBER (YELLOW); URINE GLUCOSE (UA) 50 mg/dL (NEGATIVE); URINE HYALINE CAST >20 /hpf (0-2); URINE LEUKOCYTE ESTERASE SMALL Leu/uL (Negative); URINE PROTEIN 100 mg/dL (NEGATIVE)
[2018-12-03 14:57] VITALS: BP 130/78; TEMP 97.6
--- NOTE | 2018-12-03 20:20 | CARD ---
APPROVED REPORT Date of service: 12/03/2018 EKG Measurement Heart [id number] <Conclusion> Sinus bradycardia Prolonged QT Abnormal ECG
[2018-12-05 12:44] VITALS: PULSE 58
== END 2018-12-03 14:58 | disposition home or self-care (01) ==
LOC: H.ER 10:16
DX: R55 Syncope and collapse (principal); Z95.0 Presence of cardiac pacemaker; E03.9 Hypothyroidism, unspecified; E78.00 Pure hypercholesterolemia, unspecified; I12.9 Hypertensive chronic kidney disease with stage 1 through stage 4 chronic kidney disease, or unspecified chronic kidney disease; I48.91 Unspecified atrial fibrillation; J44.9 Chronic obstructive pulmonary disease, unspecified; K21.9 Gastro-esophageal reflux disease without esophagitis; N18.9 Chronic kidney disease, unspecified; Z88.0 Allergy status to penicillin